=== PATIENT | male | born 1970 | race Caucasian/White ===

== ENCOUNTER 2024-05-30 12:41 | Observation (INO) | payer OTHER, SELFPAY ==
[2024-05-30] VITALS (8 sets, daily range): BP systolic 133–159; BP diastolic 85–104; PULSE 55–78; RESP 16–18; TEMP 36.7–37.7; O2SAT 96–98; BMI 26.1; BMI 27.6
--- NOTE | 2024-05-30 12:50 | EKG12_ITS ---
Test Reason : POSS STROKE Blood Pressure : */* mmHG Vent. Rate : 57 BPM Atrial Rate : 57 BPM P-R Int : 160 ms QRS Dur : 90 ms QT Int : 402 ms P-R-T Axes : 2 -33 6 degrees QTcB Int : 391 ms Sinus bradycardia Left axis deviation Abnormal ECG Confirmed by ROBBIE EGAN, MICHAEL ([id number]), editor trade journal KENISHA RAPHAEL ([id number]) on 06/01/2024 6:22:04 AM Referred By: Confirmed By: MICHAEL AVALOS MD
--- NOTE | 2024-05-30 12:50 | CT_ITS ---
STUDY: STROKE PROTOCOL CT BRAIN WITHOUT CONTRAST REASON FOR EXAM: Male, 53 years old. Neuro deficit, acute, stroke suspected RADIATION DOSAGE (If Supplied By Facility): CTDIvol = ( ) mGy, DLP = ( ) mGycm TECHNIQUE: Transaxial CT imaging of the brain was performed without administration of intravenous contrast material. Individualized dose optimization techniques were used for this CT. COMPARISON: Head CT dated December 22, 2016 FINDINGS: Major intracranial venous sinuses: No abnormal hyperdensity MCA and basilar arteries assessment: No abnormal hyperdensity No visualized extra-axial fluid collection or subdural hemorrhage. Normal soft tissue structures. Normal calvarium. Normal size ventricles and extra-axial spaces for the patient''s age. Normal white matter tracts of the cerebral hemispheres. Normal basal ganglia and thalami. Normal brainstem. Normal cerebellum. There is no demonstrated sulcal effacement or parenchymal edema. There is no intracranial hemorrhage. There are no findings of an acute ischemic infarction. Normal visualized paranasal sinuses. ASPECTS Score for Acute Strokes: 10 CT/STROKE Brain/Head without Cont IMPRESSION: 1. Normal unenhanced CT scan of the brain. 2. Concern for stroke/positive symptomatology should be further evaluated with CT brain perfusion/CTA or MRI of the brain for further assessment. N.B. : The above Results were Read Back by Blanco Cano MD to James Cha MD, and understanding confirmed on 05/30/2024 13:10:22 (ET). Electronically Signed: Blanco Cano MD at 13:11 EST ,
--- NOTE | 2024-05-30 12:51 | CT_ITS ---
STUDY: CTA HEAD AND NECK WITH CONTRAST REASON FOR EXAM: Male, 53 years old. Neuro deficit, acute, stroke suspected RADIATION DOSAGE (If Supplied By Facility): CTDIvol = ( 18.15 ) mGy, DLP = ( 732.61 ) mGycm TECHNIQUE: CT angiography was performed with a multi-detector CT scanner. Data acquisition was obtained from the skull base through the vertex following intravenous administration of IV 100mL Isovue-[id number]. MIP images were reconstructed from the axial data set. Post-processing of the angiographic images was performed, with multiplanar reformation and 3D reconstruction. Individualized dose optimization techniques were used for this CT. COMPARISON: Head CT dated May 30, 2024 FINDINGS: Normal bilateral petrous carotid arteries. There is calcified plaque formation of the right cavernous carotid artery, without a cross-sectional luminal stenosis. Normal left cavernous carotid artery with a normal supraclinoid bifurcation. Normal right A1 segments of the anterior cerebral artery. Normal left A1 segments of the anterior cerebral artery. Normal intact anterior communicating artery (ACOM). Normal bilateral A2 segments of the anterior cerebral arteries. Normal right M1 and M2 segments of the middle cerebral arteries, with a normal M1 bifurcation. Normal left M1 and M2 segments of the middle cerebral arteries, with a normal M1 bifurcation. Normal right posterior communicating artery (PCOM). There is non-visualization of the left posterior communicating artery (PCOM). Normal bilateral vertebral arteries. Normal basilar artery with a normal basilar bifurcation. The visualized bilateral superior cerebellar (SCA) arteries are normal. Normal bilateral P1, P2 and visualized P3 segments of the posterior cerebral arteries. There is no demonstrated aneurysm of the [place]. No demonstrated thrombus or occlusion or hemodynamically significant stenosis of the major intracranial arteries. Fully patent and normal enhancement of the major intracranial venous sinuses, with no evidence of venous sinus thrombosis or occlusion. NECK CTA: AORTIC ARCH: Normal visualized aortic arch. Normal origins of the brachiocephalic, left common carotid, and left subclavian arteries. RIGHT CAROTID ARTERIES: Normal right common carotid artery (CCA). Normal right common carotid bulb. Normal origin of the right internal carotid (ICA) artery without a hemodynamically significant stenosis. Normal visualized cervical portion of the right internal carotid artery. Normal origin of the right external carotid artery (ECA). LEFT CAROTID ARTERIES: Normal left common carotid artery (CCA). Normal left common carotid bulb. Normal origin of the left internal carotid (ICA) artery without a hemodynamically significant stenosis. There is atherosclerotic tortuous elongation of the cervical portion of the left internal carotid artery. Normal origin of the left external carotid artery (ECA). VERTEBRAL ARTERIES: Normal bilateral vertebral arteries. No demonstrated vertebral artery thrombus or occlusion or dissection. CT/STROKE CTA Head AND Neck W/Con IMPRESSION: No demonstrated large vessel occlusion (LVO) 1. Head CTA: There is no demonstrated aneurysm of the [place]. No demonstrated thrombus or occlusion or hemodynamically significant stenosis of the major intracranial arteries. Fully patent and normal enhancement of the major intracranial venous sinuses, with no evidence of venous sinus thrombosis or occlusion. 2. Neck CTA: There bilateral cervical carotid and vertebral arteries. 3. CT Brain Perfusion and/or MRI of the brain can be obtained for small infarcts and perforating vessel disease not detected by CT or CTA. N.B. : The above Results were Read Back by Blanco Cano MD to James Cha MD, and understanding confirmed on 05/30/2024 13:22:56 (ET). Electronically Signed: Blanco Cano MD at 13:24 EST ,
--- NOTE | 2024-05-30 12:53 | ED.VIS.STROK ---
HPI History of Present Illness Chief Complaint: General Illness Informant: patient and spouse/S.O. Onset/Context/Timing Onset: Today Quality and Location: Positive for Left Facial Droop, Left Face Parasthesia, Right Arm Weakness, Right Leg Weakness and Slurred Speech Current Severity: Moderate Maximum Severity: Moderate Worsened by: Nothing Relieved by: Nothing Associated Symptoms Associated Symptoms: Positive for Headache Narrative Narrative: Patient is a 53-year-old male. He replied 63 years of age when asked age. He was awakened sleep with headache. He had symptoms at that time. He has history of migraines. He has never had a ocular migraine or migraine with neurologic deficit. He arrived by ambulance. I was asked to see him by nursing staff because of concern for stroke. Prior similar symptoms: No Recent Illness/Hospitalization: Yes PFSH PFS Home Medications ?Medication ?Instructions ?Recorded ?Last Taken ?Type NK 05/30/24 Unknown History Allergy/AdvReac Type Severity Reaction Status Date / Time hydrocodone bitartrate (From Allergy Other Verified 03/14/17 12:40 Vicodin) Penicillins Allergy Anaphylaxis Verified 03/14/17 12:40 oxycodone AdvReac Other Verified 03/18/17 12:52 tramadol AdvReac Other Verified 03/18/17 12:52 Social History Smoking Status: Current every day smoker ROS ROS ED Constitutional Constitutional ED: Denies chills, fever(s) or subjective Eyes Eyes: Denies blurry vision or change in vision ENT ENT ED: Denies ear pain or rhinorrhea Cardiovascular Cardiovascular: Denies chest pain, palpitations or racing heartbeat Respiratory/Chest Respiratory/Chest: Denies cough, dyspnea or dyspnea on exertion Gastrointestinal Gastrointestinal: Denies abdominal pain, diarrhea or vomiting Musculoskeletal Musculoskeletal: Denies arthralgias, back pain, myalgias or neck pain Integumentary Denies rash Neurologic Neurologic: Reports headache(s), paresthesias and weakness EXAM Physical Exam Const Vital Signs: 05/30/24 12:43 05/30/24 12:50 05/30/24 12:53 Temperature 99.8 F H Temperature Source Oral Pulse Rate 72 78 Respiratory Rate 18 18 Respiratory Effort Blood Pressure 159/104 H 159/101 H Blood Pressure Mean 122 120 Pulse Ox 98 98 98 Oxygen Delivery Method Room Air Room Air Room Air 05/30/24 12:58 05/30/24 13:20 05/30/24 13:30 Temperature Temperature Source Pulse Rate 55 L 66 Respiratory Rate 18 17 Respiratory Effort Normal Blood Pressure 155/93 H 140/97 H Blood Pressure Mean 113 111 Pulse Ox 97 98 Oxygen Delivery Method Room Air Room Air Positive well nourished and well developed General Appearance ED: well developed and NAD HEENT Reports moist mucous membranes atraumatic Nose: other Other Details: Patient has poor dentition. Eyes PERRL and EOMs intact bilaterally Eyes Narrative: There is no visual field cut. General Eye ED: Negative for pale conjunctiva or scleral icterus Resp normal respiratory effort and clear to auscultation bilaterally Cardio no murmurs Rate: regular rate Heart Sounds: S1 normal GI normal to inspection, nondistended, normoactive bowel sounds, soft to palpation, non-tender and no masses Extremity normal to inspection Neuro oriented x3, No CN's II-XII intact bilaterally and No no sensory deficits noted [place] Coma Scale: document GCS findings Spontaneous Obeys Commands Oriented 15 Sensorium / Orientation: Negative for alert Speech: Negative for speech normal Sensory Exam: No sensory level loss detected Motor Exam: Negative for strength 5/5 throughout Skin no wounds Rashes: no rashes NIHSS NIHSS Initial: 1a Level of Consciousness: 1 1b LOC Questions (Score 2 if aphasic/stupor): 1 1c LOC Commands (Only score 1st attempt): 0 2 Best Gaze (If aphasic, use reflexive mvmts.): 0 3 Visual: 0 4 Facial Palsy: 1 5 Motor Arm Right (UN = amputation/fusion): 1 5 Motor Arm Left: 0 6 Motor Leg Right: 1 6 Motor Leg Left: 0 7 Limb ataxia (Only + if out of proportion): 1 (Right upper extremity) 8 Sensory (Aphasia/stupor=0 or 1, coma=2): 1 (Altered sensation left side of the face) 9 Best Language: 0 10 Dysarthria (mute, coma=2, intubated=UN): 1 11 Extinction and Inattention (only scored if +): 1 Total Score: 9 MDM MDM MDM Narrative Medical decision making narrative: Patient presents with strokelike symptoms. This may be atypical presentation for migraine headache, with him having a headache that awoke him from sleep with neurologic symptoms need to entertain possibility of subarachnoid hemorrhage versus intraparenchymal hemorrhage. CT T of the head as well as CTA of the head and neck was ordered. If there is a hemorrhage will not obtain CTA of the head and neck. Patient's had very frequent ER visits. He has been seen for migraine headache. Has also been seen for orthopedic extremity injuries. Lab Data Attestation: I reviewed the patient's lab results. Lab results narrative: Troponin is normal. Basic metabolic panel is unremarkable. Chloride is slightly elevated 110. Coags are normal. CBC normal. Labs: Laboratory Results - last 24 hr 05/30/24 12:56 WBC 9.4 RBC 4.98 Hgb 15.2 Hct 45.1 MCV 90.6 MCH 30.5 MCHC 33.7 RDW Std Deviation 45.1 H RDW Coeff of Jake 13.5 Plt Count 336 MPV 8.8 Immature Gran % (Auto) 0.500 Neut % (Auto) 55.9 Lymph % (Auto) 32.4 [place] % (Auto) 8.1 Eos % (Auto) 2.2 Baso % (Auto) 0.9 Absolute Neuts (auto) 5.3 Absolute Lymphs (auto) 3.05 Nucleated RBC % 0 PT 13.9 INR 1.0 APTT 30.4 Sodium 140 Potassium 4.7 Chloride 110 H Carbon Dioxide 28.0 Anion Gap 2 L BUN 14 Creatinine 0.85 Estim Creat Clear Calc 102.82 Est GFR (MDRD) Af Amer 121 Est GFR (MDRD) Non-Af 100 BUN/Creatinine Ratio 16.4 Glucose 99 Calcium 9.0 Troponin I High Sens 5 Radiography Chest X-Ray - ED: 1 View, Read by ED Physician, Normal, Heart, Lungs, Mediastinum and Bony Structures Diagnostic Testing: Clinical Impression(s) from Imaging Studies Brain CT 05/30/24 12:50 IMPRESSION: 1. Normal unenhanced CT scan of the brain. 2. Concern for stroke/positive symptomatology should be further evaluated with CT brain perfusion/CTA or MRI of the brain for further assessment. N.B. : The above Results were Read Back by Blanco Cano MD to James Cha MD, and understanding confirmed on 05/30/2024 13:10:22 (ET). Electronically Signed: Blanco Cano MD at 13:11 EST , ADDENDUM: 05/30/24 1318 IMPRESSION: 1. Normal unenhanced CT scan of the brain. 2. Concern for stroke/positive symptomatology should be further evaluated with CT brain perfusion/CTA or MRI of the brain for further assessment. N.B. : The above Results were Read Back by Blanco Cano MD to James Cha MD, and understanding confirmed on 05/30/2024 13:10:22 (ET). Electronically Signed: Blanco Cano MD at 13:11 EST Reading Location ID and State: [id number] [facility] , Service support , Head/Neck CTA 05/30/24 12:51 IMPRESSION: No demonstrated large vessel occlusion (LVO) 1. Head CTA: There is no demonstrated aneurysm of the [place]. No demonstrated thrombus or occlusion or hemodynamically significant stenosis of the major intracranial arteries. Fully patent and normal enhancement of the major intracranial venous sinuses, with no evidence of venous sinus thrombosis or occlusion. 2. Neck CTA: There bilateral cervical carotid and vertebral arteries. 3. CT Brain Perfusion and/or MRI of the brain can be obtained for small infarcts and perforating vessel disease not detected by CT or CTA. N.B. : The above Results were Read Back by Blanco Cano MD to James Cha MD, and understanding confirmed on 05/30/2024 13:22:56 (ET). Electronically Signed: Blanco Cano MD at 13:24 EST Reading Location ID and State: [id number] [facility] , Service support , ADDENDUM: 05/30/24 1330 IMPRESSION: No demonstrated large vessel occlusion (LVO) 1. Head CTA: There is no demonstrated aneurysm of the [place]. No demonstrated thrombus or occlusion or hemodynamically significant stenosis of the major intracranial arteries. Fully patent and normal enhancement of the major intracranial venous sinuses, with no evidence of venous sinus thrombosis or occlusion. 2. Neck CTA: There bilateral cervical carotid and vertebral arteries. 3. CT Brain Perfusion and/or MRI of the brain can be obtained for small infarcts and perforating vessel disease not detected by CT or CTA. N.B. : The above Results were Read Back by Blanco Cano MD to James Cha MD, and understanding confirmed on 05/30/2024 13:22:56 (ET). Electronically Signed: Blanco Cano MD at 13:24 EST , Unenhanced scan of the head reveals no evidence of hemorrhage i.e. intraparenchymal or subarachnoid hemorrhage. Awaiting formal read by radiologist. 1302 EKG Initial EKG: Attestation: I personally reviewed and interpreted this EKG as follows: Interpretation: Sinus Bradycardia (Rate is 57. [place] to the left. AR interval is 160 ms. QS duration 90 ms. QT duration 402 ms. There is no ischemic changes noted.) Management Discussion w/another healthcare provider: Hospitalist (Exterminator was asked to page hospitalist at [phone].), Order Entry Specialist (Spoke with Dr. Kauffman neurologist at [facility]. Agrees with calling stroke team. He reviewed the CTA of the head and neck and states there is no LVO. Would continue with stroke workup. If negative this may represent migraine headache.) and Radiologist (I was contacted by Dr. Cano the radiologist regarding the CT without contrast.) Discharge Plan Dx/Rx/DC Orders Clinical Impression: Stroke-like symptoms, Acute headache, Acute right-sided weakness, Facial droop, Dysarthria, Elevated blood-pressure reading without diagnosis of hypertension, History of migraine headaches Disposition Disposition: Acute Care Hospital [facility]
[2024-05-30 13:11] LABS: Absolute Lymphocyte Count 3.05 X10^3/uL (0.83-4.51); Absolute Neutrophil Count 5.3 X10^3/uL (2.0-7.7); Basophil# 0.08 X10^3/uL; Basophil% 0.9 % (0-1); Eosinophil# 0.21 X10^3/uL; Eosinophils% 2.2 % (0-5); Hematocrit 45.1 % (40-54); Hemoglobin 15.2 g/dL (13.0-16.5); Lymphocyte # 3.05 X10^3/ul (0.83-4.51); Lymphocyte % 32.4 % (19-41); Mean Corp Hgb Conc 33.7 g/dL (32-36); Mean Corpuscular Hgb 30.5 pg (27.0-32.0); Mean Corpuscular Volume 90.6 fL (80-94); Mean Platelet Vol. 8.8 fl (6.2-12.0); Monocyte# 0.76 X10^3/uL; Monocyte% 8.1 % (0-10); NRBC Flagged by Analyzer 0 % (0-5); Neutrophil # 5.25 X10^3/uL (2.7-7.7); Neutrophil % 55.9 % (47-70); Platelet Count 336 K/mm3 (150-450); RBC Distribution Width CV 13.5 % (11.6-14.6); RBC Distribution Width SD 45.1 fl (35.1-43.9); Red Blood Count 4.98 M/mm3 (4.6-6.2); White Blood Count 9.4 K/mm3 (4.4-11.0)
[2024-05-30 13:20] LABS: Prothrombin Time (Protime)PT. 13.9 SECONDS (11.7-14.9)
[2024-05-30 13:21] LABS: Partial Thromboplast Time 30.4 Seconds (24.1-36.2)
[2024-05-30 13:29] LABS: Anion Gap 2 (5-15); BUN 14 mg/dL (7-18); BUN/Creat Ratio 16.4 RATIO (10-20); Chloride 110 mmol/L (98-107); Creatinine, Serum 0.85 mg/dL (0.70-1.30); EST Glomerular Filtration Rate 100 mL/min (>60); Est Glom Filt Rate - Afr Amer 121 mL/min (>60); Estimated Creatinine Clearance 102.82 ml/min; Glucose 99 mg/dL (74-106); Potassium 4.7 mmol/L (3.5-5.1); Sodium Level 140 mmol/L (136-145); Troponin-I HS 5 pg/mL (3.0-78.0)
--- NOTE | 2024-05-30 13:30 | RAD_ITS ---
STUDY: X-RAY CHEST REASON FOR EXAM: Male, 53 years old. Neuro deficit, acute, stroke suspected -- Right-sided weakness, inattention right, slurred s TECHNIQUE: Two AP portable view of the chest. COMPARISON: None. FINDINGS: No demonstrated consolidation. The lungs are clear and expanded. There is no demonstrated pleural abnormality. Normal size heart. Normal mediastinum and liseth. Normal visualized pulmonary arteries. There is atherosclerotic calcification of the aortic arch with tortuosity. There are diffuse degenerative changes of the visualized thoracic spine. Normal visualized ribs, clavicles, and shoulders. There is no demonstrated abnormality of the visualized soft tissue structures of the upper abdomen. RAD/Chest 1 View IMPRESSION: Degenerative changes, as described above. No demonstrated acute cardiopulmonary process. Electronically Signed: Blanco Cano MD at 14:24 EST ,
--- NOTE | 2024-05-30 13:37 | PCM.HP.STD ---
HPI - General General Date of Admission: 05/30/24 Date of Service: 05/30/24 Chief Complaint: Strokelike symptoms HPI Narrative EDDA BERNAL, is a 53 M who presented to [facility] ED on 05/30/2024 with strokelike symptoms. Patient brought into hospital by EMS. Has history of migraines and woke up this morning with a significant headache, but noticed that he had a left facial droop and slurred speech. He also apparently had some mild right leg and right arm weakness as well. On arrival to the ED his NIHSS score was 9. He was outside the window for TNK. CT brain was negative. CTA head/neck was also negative. On reevaluation by ED physician patient remained somewhat confused and stated his age was 63 when he is 53 years old. notes that he also seemed slightly different than his normal, though she notes his facial droop and right-sided extremity weakness appeared improved. Given concern for stroke, hospitalist was contacted for admission. I saw the patient at bedside in the ED, was present. Patient was laying back comfortably in bed and in no acute distress. He was hemodynamically stable on room air. Patient was alert and oriented x 3 for me. However, he was very combative verbally with me and stated multiple times that he did not want to be hospitalized overnight and is strongly against taking any medications. He has a history of Crohn's disease and is on medical marijuana for this. He was very concerned about the cost of the hospital stay and testing for possible stroke and argumentative with me during our encounter. He was agreeable to being admitted with plan for MRI later this afternoon and plan to discuss further course of action after that resulted. He did seem to have occasional slurring of speech. Denied any other drug use aside from marijuana. Denied any alcohol use. Did report a mild right-sided headache currently. Otherwise denied any other concerns. [facility] Home Medications ?Medication ?Instructions ?Recorded ?Last Taken ?Type NK 05/30/24 Unknown History Allergy/AdvReac Type Severity Reaction Status Date / Time hydrocodone bitartrate (From Allergy Other Verified 03/14/17 12:40 Vicodin) Penicillins Allergy Anaphylaxis Verified 03/14/17 12:40 oxycodone AdvReac Other Verified 03/18/17 12:52 tramadol AdvReac Other Verified 03/18/17 12:52 Family History (Updated 05/30/24 @ 15:07 by Dyan Brown) Father CVA (cerebral vascular accident) Surgical History (Updated 05/30/24 @ 15:07 by Dyan Brown) History of appendectomy Social History Smoking Status: Current every day smoker tobacco type: cigarettes ROS Constitutional Constitutional: Denies chills, fatigue, fever(s) or weakness Eyes Eyes: Denies blurry vision, change in vision or double vision ENT HEENT: Denies nasal congestion or nasal discharge Cardiovascular Cardiovascular: Denies chest pain or dyspnea on exertion Respiratory/Chest Respiratory/Chest: Denies cough or shortness of breath at rest Gastrointestinal Gastrointestinal: Denies abdominal pain Musculoskeletal Musculoskeletal: Denies arthralgias, back pain or myalgias Neurologic Neurologic: Reports abnormal speech, confusion and headache(s); Denies dizziness, focal weakness, numbness or paresthesias Vital Signs Vital Signs Vital Signs: 05/30/24 12:43 05/30/24 12:50 05/30/24 12:53 Temperature 99.8 F H Temperature Source Oral Pulse Rate 72 78 Respiratory Rate 18 18 Respiratory Effort Blood Pressure 159/104 H 159/101 H Blood Pressure Mean 122 120 Pulse Ox 98 98 98 Oxygen Delivery Method Room Air Room Air Room Air 05/30/24 12:58 05/30/24 13:20 05/30/24 13:30 Temperature Temperature Source Pulse Rate 55 L 66 Respiratory Rate 18 17 Respiratory Effort Normal Blood Pressure 155/93 H 140/97 H Blood Pressure Mean 113 111 Pulse Ox 97 98 Oxygen Delivery Method Room Air Room Air Weight Weight: 80.2 kg Body Mass Index (BMI) 26.1 Physical Exam Const alert, oriented x3 and average body habitus Constitutional Narrative: Middle-age male, alert and oriented x 3 but occasional mild slurred speech noted, argumentative with me during encounter, otherwise laying back comfortably in bed and no acute distress. General Appearance: comfortable HEENT normocephalic, head/scalp atraumatic, hearing grossly normal bilaterally, nasal mucous membranes and turbinates normal and moist oral mucous membranes Eyes PERRL, EOMs intact bilaterally and conjunctivae normal Neck full ROM Chest inspection of chest normal Resp normal respiratory effort, normal air movement, no use of accessory muscles and clear to auscultation bilaterally Cardio regular rate, regular rhythm, no murmurs and peripheral pulses 2+ throughout GI normal to inspection, nondistended, normoactive bowel sounds, soft to palpation, non-tender and non-distended Back/Spine normal ROM Extremity normal to inspection, full ROM and no pedal edema Skin no rashes or lesions noted Neuro oriented x3, CN's II-XII intact bilaterally, moves all extremities and no focal motor deficits Sensorium / Orientation: awake and alert Coordination / Balance: [id number] test normal Motor Exam: strength 5/5 throughout Psych mental status grossly normal Results Lab / Micro Data 05/30/24 12:56 05/30/24 12:56 Labs: Laboratory Results - last 24 hr 05/30/24 12:56: WBC 9.4, RBC 4.98, Hgb 15.2, Hct 45.1, MCV 90.6, MCH 30.5, MCHC 33.7, RDW Std Deviation 45.1 H, RDW Coeff of Jake 13.5, Plt Count 336, MPV 8.8, Immature Gran % (Auto) 0.500, Neut % (Auto) 55.9, Lymph % (Auto) 32.4, [place] % (Auto) 8.1, Eos % (Auto) 2.2, Baso % (Auto) 0.9, Absolute Neuts (auto) 5.3, Absolute Lymphs (auto) 3.05, Nucleated RBC % 0, PT 13.9, INR 1.0, APTT 30.4, Sodium 140, Potassium 4.7, Chloride 110 H, Carbon Dioxide 28.0, Anion Gap 2 L, BUN 14, Creatinine 0.85, Estim Creat Clear Calc 102.82, Est GFR (MDRD) Af Amer 121, Est GFR (MDRD) Non-Af 100, BUN/Creatinine Ratio 16.4, Glucose 99, Calcium 9.0, Troponin I High Sens 5 Imaging Radiology Impression Brain CT 05/30/24 12:50 IMPRESSION: 1. Normal unenhanced CT scan of the brain. 2. Concern for stroke/positive symptomatology should be further evaluated with CT brain perfusion/CTA or MRI of the brain for further assessment. N.B. : The above Results were Read Back by Blanco Cano MD to James Cha MD, and understanding confirmed on 05/30/2024 13:10:22 (ET). Electronically Signed: Blanco Cano MD at 13:11 EST , ADDENDUM: 05/30/24 1318 IMPRESSION: 1. Normal unenhanced CT scan of the brain. 2. Concern for stroke/positive symptomatology should be further evaluated with CT brain perfusion/CTA or MRI of the brain for further assessment. N.B. : The above Results were Read Back by Blanco Cnao MD to James Cha MD, and understanding confirmed on 05/30/2024 13:10:22 (ET). Electronically Signed: Blanco Cano MD at 13:11 EST , Head/Neck CTA 05/30/24 12:51 IMPRESSION: No demonstrated large vessel occlusion (LVO) 1. Head CTA: There is no demonstrated aneurysm of the [place]. No demonstrated thrombus or occlusion or hemodynamically significant stenosis of the major intracranial arteries. Fully patent and normal enhancement of the major intracranial venous sinuses, with no evidence of venous sinus thrombosis or occlusion. 2. Neck CTA: There bilateral cervical carotid and vertebral arteries. 3. CT Brain Perfusion and/or MRI of the brain can be obtained for small infarcts and perforating vessel disease not detected by CT or CTA. N.B. : The above Results were Read Back by Blanco Cano MD to James Cha MD, and understanding confirmed on 05/30/2024 13:22:56 (ET). Electronically Signed: Blanco Cano MD at 13:24 EST , ADDENDUM: 05/30/24 1330 IMPRESSION: No demonstrated large vessel occlusion (LVO) 1. Head CTA: There is no demonstrated aneurysm of the [place]. No demonstrated thrombus or occlusion or hemodynamically significant stenosis of the major intracranial arteries. Fully patent and normal enhancement of the major intracranial venous sinuses, with no evidence of venous sinus thrombosis or occlusion. 2. Neck CTA: There bilateral cervical carotid and vertebral arteries. 3. CT Brain Perfusion and/or MRI of the brain can be obtained for small infarcts and perforating vessel disease not detected by CT or CTA. N.B. : The above Results were Read Back by Blanco Cano MD to James Cha MD, and understanding confirmed on 05/30/2024 13:22:56 (ET). Electronically Signed: Blanco Cano MD at 13:24 EST Reading Location ID and State: [facility] / [place] , Service support , Assessment & Plan Assessment/Plan (1) Dysarthria: (2) Facial droop: (3) Acute headache: (4) History of migraine headaches: (5) Elevated blood-pressure reading without diagnosis of hypertension: PLAN: Plan Patient is a 53-year-old male who presented [facility] ED on 05/30/2024 with strokelike symptoms. 1. Strokelike symptoms ? Admit under observation status to PCU. Teleneurology consulted. Presented with headache, slurred speech, and reported left-sided facial droop and right-sided weakness. Initial NIHSS score of 9. 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 CT brain and CTA head/neck unremarkable. MRI brain ordered. Echo with bubble study ordered. Lipid panel, A1c and TSH ordered. Other orders placed per stroke protocol order set. 2. Migraine headaches ? Patient reports occasional migraine headaches for many years. Migraines are typically bilateral and are associated with mild photophobia and nausea. No aura with headaches. Has never had strokelike symptoms with headaches before. Typically takes ibuprofen with moderate relief of migraine. Appreciate neurology recommendations. 3. Crohn's disease ? Reported history, unclear on timing of diagnosis. Diet controlled. Patient also takes medical marijuana for this. He notably has strong hesitation about taking scheduled medications. States symptoms have been well-controlled recently. DVT prophylaxis: SCDs CODE STATUS: Full code, verified Expected disposition: Home, 1 to 2 days Total clinical time spent by myself addressing the patient's medical issues, reviewing all the data, and collaborating with patient's care team: 55 minutes. Charges/Coding Visit Charges Inpatient E&M: 72252 Init Hosp L2
--- NOTE | 2024-05-30 13:43 | MRI_ITS ---
STUDY: MRI BRAIN WITHOUT CONTRAST REASON FOR EXAM: Male, 53 years old. eval for CVA TECHNIQUE: Standardized multiplanar fat and water weighted pulse sequences were obtained. COMPARISON: CT of the brain May 30, 2024. FINDINGS: Normal size of the ventricles and extra-axial spaces for the patient''s age. Normal white matter tracts of the supratentorial brain. Probable old lacunar infarct in right basal ganglia Normal thalami. There is no extra-axial fluid accumulation. Normal flow voids within the major intracranial circulation suggesting patency by spin echo criteria. Normal sella turcica, pituitary gland, infundibular stalk, optic chiasm and hypothalamus. Normal tectal plate and pineal gland. Normal midbrain, anne-marie and medulla. Normal cerebellum. Normal basal cisterns. Normal bilateral temporal bones. Normal bilateral internal auditory canals. No demonstrated orbital abnormality, within the constraints of a routine brain study. Normal visualized paranasal sinuses. Normal calvarium and skull base. Normal visualized soft tissue structures. Normal visualized upper cervical spine. MRI/Brain without Contrast IMPRESSION: Probable old lacunar infarct of the right basal ganglia otherwise normal study Electronically Signed: Adryan Izaguirre MD at 16:12 EST ,
--- NOTE | 2024-05-30 13:44 | CHAPLAIN ---
Type of Pastoral Visit ___ Initial Visit ___ Follow-up Visit ___ On-call Visit ___ General Patient Visit ___ Spiritual Assessment ___ Family Conference ___ Bereavement _x__ Rapid Response ___ Code Blue ___ Other (describe below) Pastoral Care Referral From ___ Patient ___ Family ___ Nurse ___ Physician ___ Flower Planter ___ Regional Economic Liaison _x__ Other (describe below) Sacrament/Intervention ___ Active listening ___ Anointing ___ Baptist ___ Bereavement ___ Communion ___ Aida exploration ___ ___ Life review ___ Prayer ___ Reconciliation ___ Sacrament of Sick _x__ Supportive presence ___ Wedding ___ Other (describe below) Pastoral Comments responded to stroke alert in ED; the patient was in Cat[employer] and was in the patient's room; offered presence and support to spouse; got her a water and asked how she was doing, what she needed, and if there were other family members to call; stayed in the unit for a few more minutes to see how the situation would develop after letting spouse know that support would be available as they desired; no other family members were to be coming in to hospital yet per her response to question
[2024-05-30] MEDS: DiphenhydrAMINE 50 MG/ML Syringe 12.5 MG IV (13:55)
[2024-05-30] MEDS: Metoclopramide 10 MG/2 ML Vial 5 MG IV (13:55)
[2024-05-30 14:20] LABS: Bacteria 0 SEEN /hpf (None Seen); Mucous, Urine 0 SEEN /hpf (<or=2+); Red Blood Cells-Urine 0 SEEN /hpf (0-5); Squamous Epithelial Cells - UA 0 SEEN /hpf (0-5); White Blood Cells 0 SEEN /hpf (0-5)
[2024-05-30 14:21] LABS: Color, Urine Yellow (Yellow); Glucose, Dipstick Normal (Normal); Ketone-Dipstick Negative (Negative); Leukocyte Esterase-Dipstick Negative /ul (Negative); Nitrite-Dipstick Negative (Negative); Occult Blood-Urine 10 /ul (Negative); Protein-Dipstick 15 mg/dl (Negative); Urine Bilirubin Dipstick Negative (Negative); Urine Clarity Clear (Clear); Urine Urobilinogen Normal (Normal)
[2024-05-30 14:30] LABS: Amphetamine Urine NEGATIVE (<1000 ng/mL); Barbiturate Urine VISTA NEGATIVE (< 200 ng/mL); Benzodiazepine Urine VISTA NEGATIVE (< 200 ng/mL); Cocaine Urine VISTA NEGATIVE (< 300 ng/mL); Ecstacy Urine VISTA NEGATIVE (< 500 ng/mL); Methadone Urine VISTA NEGATIVE (< 300 ng/mL); PCP Urine VISTA NEGATIVE (< 25 ng/mL); THC Urine VISTA POSITIVE (< 50 ng/mL); Vista UDS pH Range 7
[2024-05-30 14:38] LABS: Alcohol, Blood (Medical)-Serum < 3.0 mg/dL
[2024-05-30 14:53] LABS: AST(SGOT) 16 U/L (15-37); Alanine Aminotransfer ALT/SGPT 19 U/L (16-61); Albumin, Serum 3.6 g/dL (3.2-5.0); Alkaline Phosphatase 69 U/L (45-117); Bilirubin, Direct < 0.05 mg/dL (0.00-0.30); Globulin 3.5 g/dL (2.2-4.2); Protein, Total 7.1 g/dL (6.4-8.2)
[2024-05-30 17:16] LABS: Cholesterol 133 mg/dL (200); High Density Lipoprotein 31 mg/dL; Triglycerides 148 mg/dL; Very Low Density Lipoprotein 30 mg/dL (5-40)
--- NOTE | 2024-05-30 18:07 | DCINST_ITS ---
Discharge Instructions Diet Discharge Diet: No restrictions DC O2, CPAP, BIPAP needs Home O2 Discharge instructions: No Dressing / Incision Discharge Activity: No Restrictions Follow Up Care Test Results: Test results from this visit will be discussed in further detail at your follow- up appointment, if applicable. Discharge Plan Admission Admit Date/Time: 05/30/24 13:38 Primary Reason for Your Visit: Strokelike symptoms Attending Provider: Jerome Blanco Primary Care Provider: Yamilex Weeks Consulting Providers: Wang Caldera; Kenny Carmen; Gissell Shook; Juliet Estrada; Pat Lopez; Jaun Desai; Sharon Vazquez; Justice Acosta; Jose Luis Wells; Jermain Cash; Nadeen Tirado; Byron Walker; Kerline Quinones; Jerry Lee; Araceli Davis; Cesar Reveles; Rito Parker; Gaetano Gibbons; Hellen Oakes; Linda Andrade Discharge Orders/Prescriptions Prescriptions: No Action NK Referrals / Follow Up: Yamilex Weeks MD [Primary Care Provider] - Disposition Disposition (needs filled in before D/C Order can be placed): Home, Self Care
--- NOTE | 2024-05-30 18:08 | DS.PCM_ITS ---
Providers Date of Admission: 05/30/24 Date of Discharge: 05/30/24 Primary Care Physician: Dr. Yamilex Weeks MD Consultations 05/30/24 14:50 Consult: Tele-Neurology Routine Consulting Provider: [facility] Reason for Consult: Acute Ischemic Stroke/TIA EMERGENT Consult: No MD Notified: Yes Date Notified: 05/30/24 Time Notified: 15:33 Method of Notification: Answering Service Nursing Unit Staff Notify [facility] of Tele-Neurology Consult: Yes Reason For Visit: STROKELIKE SYMPTOMS Medications at Discharge Home Medications NK 05/30/24 Hospital Course Operations None Procedures EKG and - (CT brain, CTA head/neck, MRI brain, chest x-ray) Summary of Care Provided Minutes Spent on Discharge: 35 Hospital Course: Patient is a 53-year-old male who presented [facility] ED on 05/30/2024 with strokelike symptoms. Short hospital course was notable low. Patient discharged home on the evening of 05/30 in stable condition. 1. Strokelike symptoms, CVA ruled out ? Presented with headache, slurred speech, and reported left-sided facial droop and right-sided weakness. Initial NIHSS score of 9. 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 CT brain and CTA head/neck unremarkable. 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 Lipid panel with low HDL 31, otherwise normal. A1c 6.0%. TSH normal. Patient passed a swallow study without issue. He was walking around the room after MRI without issue and had no weakness of his upper or lower extremities. Patient strongly dislikes being in the hospital and preferred for discharge on the evening of 05/30. noted that patient looked significantly improved from the morning. Symptoms may have been related to migraine but this is unclear. However, with negative MRI, fairly normal labs and stable hemodynamics with significant symptom improvement, okay for patient to be discharged home on the evening of admission. 2. Migraine headaches ? Patient reports occasional migraine headaches for many years. Migraines are typically bilateral and are associated with mild photophobia and nausea. No aura with headaches. Has never had strokelike symptoms with headaches before. Typically takes ibuprofen with moderate relief of migraine. Follow-up with PCP for further recommendations as needed. 3. Crohn's disease ? Reported history, unclear on timing of diagnosis. Diet controlled. Patient also takes medical marijuana for this. He notably has strong hesitation about taking scheduled medications. States symptoms have been well-controlled recently. No further recommendations on discharge. Total clinical time spent by myself addressing the patient's medical issues, reviewing all the data, and collaborating with patient's care team: 35 minutes. Physical Exam Const alert, oriented x3 and average body habitus Constitutional Narrative: Middle-age male, alert and oriented x 3, slurred speech resolved, remained argumentative but otherwise sitting up comfortably in bed and in no acute distress. General Appearance: comfortable HEENT normocephalic, head/scalp atraumatic, hearing grossly normal bilaterally, nasal mucous membranes and turbinates normal and moist oral mucous membranes Eyes PERRL, EOMs intact bilaterally and conjunctivae normal Neck full ROM Chest inspection of chest normal Resp normal respiratory effort, normal air movement, no use of accessory muscles and clear to auscultation bilaterally Cardio regular rate, regular rhythm, no murmurs and peripheral pulses 2+ throughout GI normal to inspection, nondistended, normoactive bowel sounds, soft to palpation, non-tender and non-distended Back/Spine normal ROM Extremity normal to inspection, full ROM and no pedal edema Skin no rashes or lesions noted Neuro oriented x3, CN's II-XII intact bilaterally, moves all extremities and no focal motor deficits Sensorium / Orientation: awake and alert Coordination / Balance: [id number] test normal Speech: speech normal Motor Exam: strength 5/5 throughout Psych mental status grossly normal Weight / BMI Weight Weight: 80.1 kg Body Mass Index (BMI) 27.6 ABG / Lab / Microbiology Data 05/30/24 12:56 05/30/24 12:56 Laboratory: Laboratory Results - last 24 hr 05/30/24 12:56: WBC 9.4, RBC 4.98, Hgb 15.2, Hct 45.1, MCV 90.6, MCH 30.5, MCHC 33.7, RDW Std Deviation 45.1 H, RDW Coeff of Jake 13.5, Plt Count 336, MPV 8.8, Immature Gran % (Auto) 0.500, Neut % (Auto) 55.9, Lymph % (Auto) 32.4, [place] % (Auto) 8.1, Eos % (Auto) 2.2, Baso % (Auto) 0.9, Absolute Neuts (auto) 5.3, Absolute Lymphs (auto) 3.05, Nucleated RBC % 0, PT 13.9, INR 1.0, APTT 30.4, Sodium 140, Potassium 4.7, Chloride 110 H, Carbon Dioxide 28.0, Anion Gap 2 L, BUN 14, Creatinine 0.85, Estim Creat Clear Calc 102.82, Est GFR (MDRD) Af Amer 121, Est GFR (MDRD) Non-Af 100, BUN/Creatinine Ratio 16.4, Glucose 99, H emoglobin A1c 6.0 H, Calcium 9.0, Total Bilirubin 0.20, Direct Bilirubin < 0.05, AST 16, ALT 19, Alkaline Phosphatase 69, Troponin I High Sens 5, Total Protein 7.1, Albumin 3.6, Globulin 3.5, Triglycerides 148, Cholesterol 133, LDL Cholesterol 72, VLDL Cholesterol 30, HDL Cholesterol 31 L, TSH 1.120 05/30/24 13:57: Urine Opiates Screen NEGATIVE, Urine Methadone Screen NEGATIVE, Ur Barbiturates Screen NEGATIVE, Ur Phencyclidine Scrn NEGATIVE, Ur Amphetamines Screen NEGATIVE, MDMA (Ecstasy) Screen NEGATIVE, U Benzodiazepines Scrn NEGATIVE, Urine Cocaine Screen NEGATIVE, U Cannabinoids Screen POSITIVE H, Ur Drug Screen Comment , Ethyl Alcohol < 3.0 05/30/24 13:59: Urine Color Yellow, Urine Clarity Clear, Urine pH 8.0, Ur Specific [place] 1.010, Urine Protein 15 H, Urine Glucose (UA) Normal, Urine Ketones Negative, Urine Occult Blood 10 H, Urine Nitrite Negative, Urine Bilirubin Negative, Urine Urobilinogen Normal, Ur Leukocyte Esterase Negative, Urine RBC 0 SEEN, Urine WBC 0 SEEN, Ur Squamous Epith Cells 0 SEEN, Urine Bacteria 0 SEEN, Urine Mucus 0 SEEN Radiography Diagnostic Testing: Radiology Impression Brain CT 05/30/24 12:50 IMPRESSION: 1. Normal unenhanced CT scan of the brain. 2. Concern for stroke/positive symptomatology should be further evaluated with CT brain perfusion/CTA or MRI of the brain for further assessment. N.B. : The above Results were Read Back by Blanco Cano MD to James Cha MD, and understanding confirmed on 05/30/2024 13:10:22 (ET). Electronically Signed: Blanco Cano MD at 13:11 EST , ADDENDUM: 05/30/24 1318 IMPRESSION: 1. Normal unenhanced CT scan of the brain. 2. Concern for stroke/positive symptomatology should be further evaluated with CT brain perfusion/CTA or MRI of the brain for further assessment. N.B. : The above Results were Read Back by Blanco Cano MD to James Cha MD, and understanding confirmed on 05/30/2024 13:10:22 (ET). Electronically Signed: Blanco Cano MD at 13:11 EST , Head/Neck CTA 05/30/24 12:51 IMPRESSION: No demonstrated large vessel occlusion (LVO) 1. Head CTA: There is no demonstrated aneurysm of the [place]. No demonstrated thrombus or occlusion or hemodynamically significant stenosis of the major intracranial arteries. Fully patent and normal enhancement of the major intracranial venous sinuses, with no evidence of venous sinus thrombosis or occlusion. 2. Neck CTA: There bilateral cervical carotid and vertebral arteries. 3. CT Brain Perfusion and/or MRI of the brain can be obtained for small infarcts and perforating vessel disease not detected by CT or CTA. N.B. : The above Results were Read Back by Blanco Cano MD to James Cha MD, and understanding confirmed on 05/30/2024 13:22:56 (ET). Electronically Signed: Blanco Cano MD at 13:24 EST , ADDENDUM: 05/30/24 1330 IMPRESSION: No demonstrated large vessel occlusion (LVO) 1. Head CTA: There is no demonstrated aneurysm of the [place]. No demonstrated thrombus or occlusion or hemodynamically significant stenosis of the major intracranial arteries. Fully patent and normal enhancement of the major intracranial venous sinuses, with no evidence of venous sinus thrombosis or occlusion. 2. Neck CTA: There bilateral cervical carotid and vertebral arteries. 3. CT Brain Perfusion and/or MRI of the brain can be obtained for small infarcts and perforating vessel disease not detected by CT or CTA. N.B. : The above Results were Read Back by Blanco Cano MD to James Cha MD, and understanding confirmed on 05/30/2024 13:22:56 (ET). Electronically Signed: Blanco Cano MD at 13:24 EST , Chest X-Ray 05/30/24 13:30 IMPRESSION: Degenerative changes, as described above. No demonstrated acute cardiopulmonary process. Electronically Signed: Blanco Cano MD at 14:24 EST Reading Location ID and State: [facility] / [place] , Service support , Brain MRI 05/30/24 13:43 IMPRESSION: Probable old lacunar infarct of the right basal ganglia otherwise normal study Electronically Signed: Adryan Izaguirre MD at 16:12 EST , D/C Instructions Discharge Diet: No restrictions DC O2, CPAP, BIPAP Needs Home O2 Discharge instructions: No Meaningful Use Info Meaningful Use Meaningful Use Diagnoses (Choose all that apply): None applicable Ischemic Stroke Statin Dosing Therapy Reference: STATIN DOSE THERAPY REFERENCE: * Patients > 75 years receive moderate or high dose statin therapy. * Patients 75 years or YOUNGER should receive HIGH intensity statin dose unless contraindicated. You will be required to document reason for non-treatment if statin daily dose does not meet guidelines. HIGH DOSE STATIN THERAPY DAILY Atorvastatin > than or = to 40 mg Rosuvastatin > than or = to 20 mg Amlodipine + Atorvastatin > than or = to 2.5/40 mg Ezetimibe + Simvastatin 10/80 mg Simvastatin 80mg Discharge Plan Admission Admit Date/Time: 05/30/24 13:38 Primary Reason for Your Visit: Strokelike symptoms Attending Provider: Jerome Blanco Primary Care Provider: Yamilex Weeks Consulting Providers: Wang Caldera; Kenny Carmen; Gissell Shook; Juliet Estrada; Pat Lopez; Jaun Desai; Sharon Vazquez; Justice Acosta; Jose Luis Wells; Jermain Cash; Nadeen Tirado; Byron Walker; Kerline Quinones; Jerry Lee; Araceli Davis; Cesar Reveles; Rito Parker; Gaetano Gibbons; Hellen Oakes; Linda Andrade Discharge Orders/Prescriptions Prescriptions: No Action NK Referrals / Follow Up: Yamilex Weeks MD [Primary Care Provider] - Disposition Disposition (needs filled in before D/C Order can be placed): Home, Self Care Charges/Coding Visit Charges Inpatient E&M: 14553 Disch Hosp >30min
== END 2024-05-30 18:08 | disposition home or self-care (01) ==
LOC: ED 13:35 → PCU 14:11
PROVIDERS: Admitting Provider Hospitalist; Emergency Provider Emergency Medicine; PCP Internal Medicine; Visit Provider Hospitalist
DX: R29.898 Other symptoms and signs involving the musculoskeletal system (principal); K50.90 Crohn's disease, unspecified, without complications; R03.0 Elevated blood-pressure reading, without diagnosis of hypertension; G43.909 Migraine, unspecified, not intractable, without status migrainosus; R47.81 Slurred speech; R47.1 Dysarthria and anarthria; R29.810 Facial weakness; F17.210 Nicotine dependence, cigarettes, uncomplicated; R94.31 Abnormal electrocardiogram [ECG] [EKG]; R00.1 Bradycardia, unspecified
CPT/HCPCS: 70450; 70496; 70498; 70551; 71045; 80048; 80061; 80076; 80307; 81001; 82077; 83036; 84443; 84484; 85025; 85610; 85730; 93005; 96374; 96375; 99221; 99285; Q9957; Q9967; A4216; G0378

== ENCOUNTER → 2024-09-23 | Outpatient (CLI) | payer OTHER, SELFPAY ==
--- NOTE | 2024-09-23 18:37 | CT_ITS ---
PROCEDURE: ABDOMEN/PELVIS WITH CONTRAST 09/23/2024 REASON FOR EXAM: PAIN TECHNIQUE: Abdomen and pelvis CT with oral and intravenous contrast. Coronal and Sagittal reconstruction series were provided. PATIENT PREPARATION: Per protocol CONTRAST: 97 mL Isovue 370 One or more dose reduction techniques were used (e.g., Automated exposure control, adjustment of the mA and/or kV according to patient size, use of iterative reconstruction technique. RADIATION DOSE SUMMARY: CTDlvol: 13.5 mGy DLP: 725 mGycm COMPARISON: None FINDINGS: Lung bases: Calcified granuloma in the lingula. Otherwise unremarkable. Liver: Subcentimeter hypodensity in the right hepatic lobe is too small to characterize. There is heterogeneous appearance of the posterior right hepatic lobe. There is streaky hypodensity present within the main and right portal veins. Gallbladder: Unremarkable Spleen: Normal size. Pancreas: Normal size without evidence of mass surrounding inflammation or ductal dilation. Adrenals: Unremarkable Kidneys: No hydronephrosis or stone. Bladder: Circumferential bladder wall thickening. Reproductive Organs: Prostatomegaly. Bowel: There is wall thickening and inflammatory stranding surrounding the sigmoid colon in the region of diverticulosis. There is an ovoid hypodensity with a punctate focus of hyperdensity internally at the mesenteric aspect of the prox sigmoid colon wall measuring 1.6 x 1.2 cm (series 2, image 80). No air is present within this hypodensity. No obstruction. Appendix: The appendix is not identified. There is no inflammatory process identified in the right lower quadrant to suggest appendicitis. Lymph nodes: Subcentimeter retroperitoneal nodes are likely reactive. Vasculature: Mild diffuse atherosclerotic calcifications are noted. There are 2 right renal arteries. Bones: Unremarkable CT/Abdomen/Pelvis WITH Contrast IMPRESSION: 1. Inflammatory changes in the region of diverticulosis in the sigmoid colon, most suggestive of acute diverticulitis. There is an ovoid hypodensity measuring 1.6 cm adjacent to the involved colon which may represent a developing abscess or inflamed diverticulum. 2. Heterogeneous enhancement of the posterior right hepatic lobe, nonspecific and which may represent transient hepatic attenuation differences. However, given additional finding of streaky hypodens ity within the portal veins, consider Doppler ultrasound to exclude portal vein thrombosis. 3. Circumferential bladder wall thickening, which may be reactive or the resul t of cystitis. Correlate with urinalysis. Reading Location: [facility]
== END | disposition home or self-care (01) ==
PROVIDERS: PCP Internal Medicine; Referring Provider Physician Assistant; Visit Provider Physician Assistant
DX: R10.32 Left lower quadrant pain (principal); K40.90 Unilateral inguinal hernia, without obstruction or gangrene, not specified as recurrent
CPT/HCPCS: 74177; Q9967; A4216

== ENCOUNTER → 2024-09-29 | Outpatient (CLI) | payer OTHER, SELFPAY ==
--- NOTE | 2024-09-29 09:37 | US_ITS ---
PROCEDURE: LIVER 09/29/2024 REASON FOR EXAM: POSSIBLE EMBOLI Possible thrombosis of the portal vein. COMPARISON: Prior CT scan of the abdomen and pelvis dated September 23, 2024. FINDINGS: Liver: Diffusely echogenic suggesting fatty infiltration. Findings suggestive of partial thrombosis of the portal vein. The portal flow is hepato pedal. Gallbladder: Sludge is seen within the gallbladder lumen. I suspect a 2 mm x 3 mm by 2 mm polyp adjacent to the gallbladder wall. Common bile duct: Normal measuring 3 mm.. Pancreas: Visualized portions are sonographically unremarkable. Other: Right kidney is unremarkable. No evidence of splenomegaly. The spleen measures 8.4 cm 4.3 cm x 3.1 cm. 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 The portal flow is hepatopetal. Sludge in the gallbladder lumen as well as a 2 mm x 3 mm x 2 mm polyp adjacent to the gallbladder wall. Reading Location: [id number]
== END | disposition home or self-care (01) ==
LOC: US 09:35
PROVIDERS: PCP Internal Medicine; Referring Provider Physician Assistant; Visit Provider Physician Assistant
DX: I81 Portal vein thrombosis (principal)
CPT/HCPCS: 76705

== ENCOUNTER → 2024-10-17 | Outpatient (CLI) | payer OTHER, SELFPAY ==
[2024-10-17 12:51] LABS: Absolute Lymphocyte Count 2.82 X10^3/uL (0.83-4.51); Absolute Neutrophil Count 7.2 X10^3/uL (2.0-7.7); Basophil# 0.11 X10^3/uL; Basophil% 0.9 % (0-1); Eosinophil# 0.44 X10^3/uL; Eosinophils% 3.8 % (0-5); Hematocrit 45.4 % (40-54); Hemoglobin 15.4 g/dL (13.0-16.5); Lymphocyte # 2.82 X10^3/ul (0.83-4.51); Lymphocyte % 24.2 % (19-41); Mean Corp Hgb Conc 33.9 g/dL (32-36); Mean Corpuscular Hgb 30.8 pg (27.0-32.0); Mean Corpuscular Volume 90.8 fL (80-94); Mean Platelet Vol. 9.6 fl (6.2-12.0); Monocyte# 0.99 X10^3/uL; Monocyte% 8.5 % (0-10); NRBC Flagged by Analyzer 0 % (0-5); Neutrophil # 7.24 X10^3/uL (2.7-7.7); Neutrophil % 62.3 % (47-70); Platelet Count 320 K/mm3 (150-450); RBC Distribution Width CV 13.9 % (11.6-14.6); RBC Distribution Width SD 46.3 fl (35.1-43.9); White Blood Count 11.6 K/mm3 (4.4-11.0)
[2024-10-17 13:15] LABS: International Normalized Ratio 1.1
--- NOTE | 2024-10-17 13:58 | CT_ITS ---
PROCEDURE: ABDOMEN/PELVIS WITH CONTRAST 10/17/2024 REASON FOR EXAM: LLQ PAIN/LEFT INGUINAL, DIVERTICULITIS ON 09/23 CT TECHNIQUE: ABDOMEN/PELVIS WITH CONTRAST. Coronal and Sagittal reconstruction series were provided. ORAL CONTRAST TYPE: Gastrografin. CONTRAST: Isovue 300 VOLUME: 100 mL One or more dose reduction techniques were used (e.g., Automated exposure control, adjustment of the mA and/or kV according to patient size, use of iterative reconstruction technique. RADIATION DOSE SUMMARY: CTDlvol: 12 mGy DLP: 740.39 mGycm COMPARISON: Prior study dated September 23, 2024. FINDINGS: Lung bases: Unremarkable Liver: Diffuse fatty infiltration. Subcentimeter cyst seen in the anterior medial aspect of the right lobe of the liver. Gallbladder: Unremarkable. Spleen: Normal size. Pancreas: Normal size without evidence of mass surrounding inflammation or ductal dilation. Adrenals: Unremarkable Kidneys: Unremarkable Bladder: Mild degree of diffuse bladder wall thickening. Reproductive Organs: Normal uterine size and contour. Ovaries are unremarkable. Bowel: Sigmoid diverticulosis. Mild degree of increased inflammatory changes are seen in the surrounding peritoneal fat suggestive of sigmoid diverticulitis. No obvious abscess or collection of fluid is seen at this time. Appendix: Unremarkable Lymph nodes: Unremarkable. Vasculature: Mild diffuse atherosclerotic calcifications are noted. Peritoneum / Retroperitoneum: Unremarkable Bones: Unremarkable CT/Abdomen/Pelvis WITH Contrast IMPRESSION: Findings suggestive of non complicated acute sigmoid diverticulitis. Stable subcentimeter hypodensity in the midportion of the right lobe of the chanell er suggestive of a small cyst. Reading Location: [place] [id number]
[2024-10-18 15:54] LABS: ALB/GLOB Ratio 1.6 RATIO (0.9-2.4); AST(SGOT) 24 U/L (<=37); Alanine Aminotransfer ALT/SGPT 16 U/L (<=46); Albumin, Serum 4.2 g/dL (3.5-5.0); Alkaline Phosphatase 67 U/L (40-129); Anion Gap 10 (5-15); BUN 10 mg/dL (4-19); BUN/Creat Ratio 12.8 RATIO (10-20); Calcium,Total 9.2 mg/dL (7.6-11.0); Chloride 105 mmol/L (98-108); Creatinine, Serum 0.76 mg/dL (0.70-1.20); EST Glomerular Filtration Rate 109 (>60); Globulin 2.7 g/dL (2.2-4.2); Glucose 89 mg/dL (70-99); Protein, Total 6.8 g/dL (5.9-8.4); Sodium Level 139 mmol/L (133-145); Total Bilirubin < 0.15 mg/dL (0.00-1.30)
== END | disposition home or self-care (01) ==
LOC: CT 11:00
PROVIDERS: Physician Assistant; PCP Internal Medicine; Referring Provider Nurse Practitioner Acute Care; Visit Provider Nurse Practitioner Acute Care
DX: I81 Portal vein thrombosis (principal); R10.32 Left lower quadrant pain
CPT/HCPCS: 36415; 74177; 80053; 85025; 85610; Q9967; A4216

== ENCOUNTER → 2024-10-19 | Outpatient (CLI) | payer OTHER, SELFPAY ==
--- NOTE | 2024-10-19 09:57 | VDLE_ITS ---
Reason For Study Reason For Study: PAIN/swelling (LT GROIN AREA) RIGHT LEFT CFV is compressible, spontaneous, phasic, competent GSV is normal. and demonstrates normal augmentation. DEIV is normal. Procedure CFV is compressible, spontaneous, phasic, competent, This is a venous duplex using B-mode, color flow and and demonstrates normal augmentation. spectral Doppler. FV is compressible, spontaneous, phasic, competent Exam performed in department. and demonstrates normal augmentation. 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 and demonstrates normal augmentation. T/P Trunk is compressible. PTV is compressible. LT PerV is compressible. VL/Venous Duplex US, Unilateral Interpretation Summary Deep veins of the left lower extremity are patent and compressible segmentally. There is no evidence of left lower extremity deep vein thrombosis. Valvular competence appears intact within the p roximal deep venous system on the left . The left great saphenous vein appears patent and compressible segmentally. The right common femoral vein is patent and compressible . Ordering Physician: Estefani Mohan Referring Physician: Courtney Cotter Performed By: Shayna George, JACY, RVT
--- OUTSIDE RECORDS SUMMARY | 2024-10-19 20:03 | XMS RPT_ITS | CCD ---
Author Organization [facility] Care Team Providers Care Wheel Borer Name Role Phone MACKENZIE COLUNGA Unavailable Unavailable CHRISTIANE BARBA Unavailable Unavailable MACKENZIE COLUNGA Unavailable Unavailable Unavailable Primary Care Provider Unavailtiffanie COLUNGA MD, DR MANN Primary Care Physician PHYSICIAN, NONE Primary Care Physician Unavailab jewels BARON DO, DR JAJA Porter Attending Unavailable LORAINE HAGAN, DR JAJA Porter Referring Unavailable PHYSICIAN, NONE Primary Care Unavailable Desi EGAN, Dr. Mackenzie Sparks Primary Care Provider [phone] Dr. Mackenzie Colunga MD Referring Provider Byron Brady Attending Provider Dr. Courtney Cotter MD Primary Care Provider Dr. Courtney Cotter MD Attending Provider Dr. Courtney Cotter MD Referring Provider Byron Brady Referring Provider [phone] Bryan EGAN, Dr. Reyez Attending Provider Marques 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-CEstefani Attending Provider Courtney Cotter Primary Care Unavailable Byron Brady Attending Unavailable Byron Brady Referring Unavailable Wang Caldera Consulting Unavailable Jerome Blanco Attending Unavailable Jerome Blanco Admitting Unavailable Mackenzie Colunga Primary Care Unavailable Adekasey, Kenny Consulting Unavailable Hindutessa, Gissell Consulting Unavailable Juliet Estrada Consulting Unavailable Pat Lopez Consulting Unavailable Jaun Desai Consulting Unavailable Sharon Vazquez Consulting Unavailable Justice Acosta Consulting Unavailable Jose Luis Wells Consulting Unavailable Jermain Cash Consulting Unavailable Nadeen Tirado Consulting Unavailable Byron Walker Consulting Unavailable Joni, Kerline Consulting Unavailable Ridha, Mohamed Consulting Unavailable Zaghlouleh, Mhd Mark Anthony Consulting UnavailCesar Blake Consulting Unavailable Parker, Rami Consulting Unavailable Gaetano Gibbons Consulting Unavailable Hellen Oakes Consulting Unavailable Raymond, Deepsef Consulting Unavailable Jerome Blanco Consulting Unavailable Talampas, Mackenzie D Referring Unavailable Talampas, Mackenzie D Primary Care Unavailable Byron Brady Attending Unavailable Talampas, Mackenzie D Referring Unavailable Talampas, Mackenzie D Primary Care Unavailable Byron Brady Attending Unavailable Vahe, Courtney Attending Unavailable Vahe, Courtney Primary Care Unavailable Talampas, Mackenzie D Referring Unavailable Vahe, Courtney Referring Unavailable Vahe, Courtney Primary Care Unavailable Byron Brady Attending Unavailable Wang Caldera Consulting Unavailable Jerome Blanco Attending Unavailable Jerome Blanco Admitting Unavailable Talampas, Mackenzie D Primary Care Unavailable Adeli, Amir Consulting Unavailable Hinduja, Gissell Consulting Unavailable Sean, Juliet Consulting Unavailable Zha, Pat Consulting Unavailable Lloyd, Jaun Consulting Unavailable Taylor, Sharon Consulting Unavailable Bitraul, Justice Consulting Unavailable Jose Luis Wells Consulting Unavailable Jermain Cash Consulting Unavailable Nadeen Tirado Consulting Unavailable Byron Walker Consulting Unavailable Joni, Kerline Consulting Unavailable Ridha, Mohamed Consulting Unavailable Zakrish, Mhd Mark Anthony Consulting UnavailCesar Blake Consulting Unavailable Parker, Rami Consulting Unavailable Gaetano Gibbons Consulting Unavailable Hellen Oakes Consulting Unavailable Hannawi, Yousef Consulting Unavailable Vahe, Courtney Primary Care Unavailable Vahe, Courtney Referring Unavailable Estefani Mohan Attending Unavailable Vahe, Courtney Primary Care Unavailable Vahe, Courtney Referring Unavailable Dereje Adams Attending Unavailable Wayt Byron MARTINEZ Attending Unavailable Vahe, Courtney Primary Care Unavailable WayByron Aguilar Referring Unavailable Vahe, Courtney Primary Care Unavailable Byron Brady Referring Unavailable Byron Brady Attending Unavailable Vahe, Courtney Primary Care Unavailable Estefani Mohan Referring Unavailable Estefani Mohan Attending Unavailable Byron Brady Unavailable Allergies Allergy Classification Reported Allergen(s) Allergy Type Date of Onset Reaction(s) Facility (3 sources) acetaminophen / HYDROcodone; Translations: [HYDROCODONE-ACET AMINOPHEN] Drug Allergy 9 [facility] Repository (2 sources) peanut; Translations: [PEANUTS] Propensity to adverse reactions to food (disorder) 2 [facility] Repository (4 sources) penicillin; Translations: [PENICILLIN] Drug Allergy 7 Dyspnea (finding) [facility] Repository (2 sources) varenicline; Translations: [VARENICLINE] Drug Allergy 4 [facility] Repository (2 sources) AMOXICILLIN-POT CLAVULANATE; Translations: [AMOXICILLIN-POT CLAVULANATE] Propensity to adverse reactions to drug (disorder) 9 [facility] Repository (1 source) Acetaminophen / oxyCODONE Drug Allergy 1 Itching [facility] (7 sources) Penicillins; Translations: [Penicillins] Propensity to adverse reactions to drug 7 Anaphylaxis [facility] Work Phone: (2 sources) Acetaminophen / HYDROcodone; Translations: [acetaminophen-hy drocodone] Drug Allergy Migraine (disorder), Itching (finding) [facility] (2 sources) Acetaminophen / oxyCODONE; Translations: [acetaminophen-ox ycodone] Drug Allergy Migraine (disorder), Itching (finding) [facility] (6 sources) traMADol; Translations: [tramadol] Drug Allergy 5 Other [facility] Comment on above: itchy and gittery (1 source) Ciprofloxacin; Translations: [ciprofloxacin] Drug Allergy Itching (finding), Pharyngeal swelling (finding) [facility] (1 source) metroNIDAZOLE; Translations: [metronidazole] Drug Allergy Pharyngeal swelling (finding), Itching (finding) [facility] (6 sources) HYDROcodone; Translations: [hydrocodone bitartrate] Drug Allergy 5 Other [facility] (5 sources) oxyCODONE Drug Allergy 5 Other [facility] (1 source) oxyCODONE Drug Allergy 5 [facility] Repository (1 source) traMADol Drug Allergy 5 [facility] Repository Medications Current Medications Medication Drug Class(es) Dates Sig (Normalized) Sig (Original) aspirin 81 mg delayed release oral tablet (5 sources) Platelet Aggregation Inhibitor, Nonsteroidal Anti-inflammatory Drug Start: 07-12-2024 take 1 tablet by mouth once daily Aspirin (Adult Aspirin Regimen) 81 mg tablet,delayed release (DR/EC) Active 81 mg PO daily July 12, 2024 12:00am atorvastatin 10 mg oral tablet (5 sources) HMG-CoA Reductase Inhibitor Start: 08-11-2024 take 1 tablet by mouth at bedtime Atorvastatin (Lipitor) 10 mg tablet Active 10 mg PO AT BEDTIME August 11, 2024 12:00am ciprofloxacin 500 mg oral tablet (3 sources) Quinolone Antimicrobial Start: 10-11-2024 take 1 tablet by mouth twice daily Ciprofloxacin Hcl 500 mg tablet Active 500 mg PO TWICE A DAY October 11, 2024 12:00am October 24, 2024 12:00am Start: 02-18-2023 ciprofloxacin 500 mg oral tablet Dose : 500 mg = 1 tab(s), Oral, q12h, # 20 tab(s), 0 Refill(s), 83.3 Start Date: 02/18/23 Status: Ordered Start: 04-29-2017 Cipro 500 mg o ral tablet Dose : 500 mg = 1 tab(s), Oral, BID, 0 Refill(s) Start Date: 04/29/17 Status: Ordered cyclobenzaprine hydrochloride 5 mg oral tablet (5 sources) Muscle Relaxant Start: 09-27-2024 take 2 tablets by mouth three times daily at bedtime for muscle spasms Cyclobenzaprine 5 mg tablet Active 5 mg PO THREE TIMES A DAY as needed for muscle spasm September 27, 2024 12:00am Can take two tabs at bedtime Dexamethasone / Neomycin / Polymyxin B (1 source) Aminoglycoside Antibacterial, Polymyxin-class Antibacterial, Corticosteroid Start: 05-12-2021 End: 05-19-2021 take 1 dose into the eye(s) every four hours Maxitrol ophthalmic suspension Dose = 1 drop(s), Ophthalmic, q4h, X 7 day(s), # 5 mL, 0 Refill(s) Start Date: 05/12/21 Stop Date: 05/19/21 Status: Ordered docusate sodium 100 mg oral capsule (1 source) Start: 02-18-2023 docusate sodium 100 mg oral capsule Dose : 100 mg = 1 cap(s), Oral, BID, # 20 cap(s), 0 Refill(s) Start Date: 02/18/23 Status: Ordered levoFLOXacin 750 mg oral tablet (1 source) Quinolone Antimicrobial Start: 02-18-2023 End: 02-24-2023 levoFLOXacin 750 mg oral tablet Dose : 750 mg = 1 tab(s), Oral, q24h, Stat tomorrow 02/19/23 take with a probiotic, # 6 tab(s), 0 Refill(s), 83.3 Start Date: 02/18/23 Stop Date: 02/24/23 Status: Ordered metroNIDAZOLE 500 mg oral tablet (3 sources) Nitroimidazole Antimicrobial Start: 10-11-2024 take 1 tablet by mouth three times daily Metronidazole 500 mg tablet Active 500 mg PO THREE TIMES A DAY 42 14 October 11, 2024 12:00am October 24, 2024 12:00am Start: 02-18-2023 metroNIDAZOLE 500 mg oral tablet Dose : 500 mg = 1 tab(s), Oral, TID, # 30 tab(s), 0 Refill(s), 83.3 Start Date: 02/18/23 Status: Ordered Start: 04-29-2017 Flagyl 500 mg oral tablet Dose : 1,000 mg = 2 tab(s), Oral, Once, # 2 tab(s), 0 Refill(s) Start Date: 04/29/17 Status: Ordered sodium chloride flush 0.9 % injection 3 mL (1 source) Start: 03-14-2021 sodium chlorid e flush 0.9 % injection 3 mL traMADol hydrochloride 50 mg oral tablet (2 sources) Opioid Agonist Start: 02-18-2023 traMADol 50 mg oral tablet Dose : 50 mg = 1 tab(s), Oral, q6h, PRN for pain, # 12 tab(s), 0 Refill(s), 83.3 Start Date: 02/18/23 Status: Ordered Start: 03-14-2021 End: 03-17-2021 traMADol (ULTRAM) 50 MG tabl et Indications: Open fracture of tuft of distal phalanx of finger , Laceration of left index finger without foreign body without damage to nail, initial encounter Take 1 tablet by mouth every 6 hours as needed for Pain for up to 3 days. Intended supply: 3 days. Take lowest dose possible to manage pain 12 tablet 0 03/14/2021 03/17/2021 Active Completed/Discontinued Medications Medication Drug Class(es) Dates Sig (Normalized) Sig (Original) bacitracin zinc 0.5 unt/mg topical ointment (1 source) Start: 03-14-2021 End: 03-14-2021 bacitracin ointment Start: 03-14-2021 End: 03-14-2021 bacitracin ointment cephalexin 500 mg oral capsule (2 sources) Cephalosporin Antibacterial Start: 03-14-2021 End: 03-21-2021 cephALEXin (KEFLEX) capsule 500 mg 10 ml lidocaine hydrochloride 10 mg/ml injection (1 source) Antiarrhythmic, Amide Local Anesthetic Start: 03-14-2021 End: 03-14-2021 lidocaine PF 1 % injection 10 mL sertraline 25 mg oral tablet (15 sources) Serotonin Reuptake Inhibitor Start: 06-22-2024 End: 08-09-2024 take 1 tablet by mouth once daily Sertraline (Zoloft) 25 mg tablet Discontinued 25 mg PO daily July 12, 2024 4:55pm August 09, 2024 10:03am Problems Active Problems Problem Classification Problem Date Documented Da te Episodic/Chronic Abdominal hernia (10 sources) Inguinal hernia; Translations: [Umbilical hernia] Onset: 5 03-18-2017 Episodic Comment on above: Left side Abdominal pain (17 sources) Abdominal pain; Translations: [Left inguinal pain] Onset: 5 04-29-2017 Episodic Comment on above: Patient is a 53-year -old male who presents for concern for recurrent left inguinal hernia given presence of radiating left groin discomfort but has not appreciated any bulging of the right groin. He underwent CT imaging through his PCP which did not show evidence of a hernia but did find evidence of acute diverticulitis. I was asked to see the patient for possible occult hernia. However, as I carefully listened to patient's history he appears to have some persistent neuropathic discomfort after a remote inguinal hernia repair with mesh which required mesh explantation. I do not feel any evidence of a recurrent hernia on exam and have carefully reviewed his CT imaging with both him and his which shows no evidence of recurrence. Instead, it does show clear evidence of diverticulitis and potentially concurrent inflammatory bowel disease. Patient states that he completed a course of antibiotics for the diverticulitis but has significant left lower quadrant pain still on palpation. In addition to this source of discomfort he does have a single enlarged inguinal lymph node that is tender to palpation but I believe these are the 3 causes of his discomfort and not a recurrent hernia. In the absence of a hernia I believe he should be able to return to work with light duty and have refilled his prescription for ciprofloxacin and Flagyl to try to bring about a resolution to his colon inflammation but have made additional referrals as felt appropriate and agreed upon by the patient. 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 Diverticulosis and diverticulitis (4 sources) Diverticulitis; Translations: [Diverticulitis of large intestine] Onset: 0 03-18-2017 Chronic Comment on above: Patient with persist ent left lower quadrant tenderness following reported course of ciprofloxacin and Flagyl Fracture of upper limb (1 source) Open fracture finger distal phalanx, tuft; Translations: [Displaced fracture of distal phalanx of unspecified finger, initial encounter for open fracture] Episodic Headache; including migraine (5 sources) Acute headache; Translations: [Acute headache] 06-07-2024 Episodic Headache; including migraine (1 source) Headache; including migraine; Translations: [Headache, unspecified] Onset: 5 Immunizations and screening for infectious disease (6 sources) Immunization due; Translations: [Encounter for immunization] Onset: 5 08-11-2024 Episodic Malaise and fatigue (5 sources) Right hemiparesis; Translations: [Weakness] 06-07-2024 Episodic Noninfectious gastroenteritis (4 sources) Colitis; Translations: [Non-specific colitis] Onset: 7 06-26-2017 Episodic Open wounds of extremities (1 source) Laceration of left index finger; Translations: [Laceration without foreign body of left index finger without damage to nail, initial encounter] Episodic Other circulatory disease (10 sources) Elevated blood-pressure reading without diagnosis of hypertension; Translations: [Elevated blood-pressure reading, without diagnosis of hypertension] 05-30-2024 Episodic Other connective tissue disease (5 sources) Neurological symptom; Translations: [Unspecified symptoms and signs involving the nervous system] 06-07-2024 Episodic Other connective tissue disease (5 sources) Weakness of face muscles; Translations: [Facial weakness] 06-07-2024 Episodic Other gastrointestinal disorders (2 sources) Diarrhea 04-29-2017 Episodic Other nervous system disorders (10 sources) H/O: migraine; Translations: [Personal history of other diseases of the nervous system and sense organs] 05-30-2024 Episodic Other nervous system disorders (5 sources) Dysarthria; Translations: [Dysarthria and anarthria] 06-07-2024 Episodic Other nervous system disorders (2 sources) Personal history of other diseases of the nervous system and sense organs; Translations: [Personal history of other diseases of the nervous system and sense organs] Onset: 5 Episodic Phlebitis; thrombophlebitis and thromboembolism (8 sources) Portal vein thrombosis; Translations: [Portal vein thrombosis] Onset: 5 09-27-2024 Episodic Regional enteritis and ulcerative colitis (8 sources) Crohn's disease; Translations: [Crohn's disease, unspecified, without complications] Onset: 5 08-11-2024 Chronic Comment on above: Patient describes pr ior diagnosis of Crohn's disease which is not currently followed or treated per patient's request. I attempted to reassure him today that medical management of inflammatory bowel disease has evolved significantly since the time of treatment for his father and have shared my concerns about leaving it untreated especially in the setting of concurrent tobacco use. I believe this could complicate his ability to resolve his diverticular discomfort and have encouraged him to establish with gastroenterology. He is receptive. Residual codes; unclassified (15 sources) Nicotine user; Translations: [Tobacco use] 06-22-2024 Episodic Residual codes; unclassified (5 sources) Family history of cancer of colon; Translations: [Family history of malignant neoplasm of digestive organs] 08-11-2024 Episodic Residual codes; unclassified (1 source) Family history of malignant neoplasm of digestive organs; Translations: [Family history of malignant neoplasm of digestive organs] Onset: 5 Episodic Sprains and strains (5 sources) Sprain of acromioclavicular ligament; Translations: [Sprain of unspecified acromioclavicular joint, initial encounter] 12-23-2016 Episodic Substance-related disorders (20 sources) Harmful pattern of use of caffeine; Translations: [Other stimulant abuse, uncomplicated] Onset: 5 08-11-2024 Chronic Comment on above: cut back 1.5 pots pe r day Unclassified (4 sources) Left inguinal pain; Translations: [pain in groin, back, leg] Unclassified (1 source) K57.92 - Diverticulitis of intestine, part unspecified, without perforation or abscess without bleeding,K50.90 - Crohn's disease, unspecified, without complications Past or Other Problems Problem Classification Problem Date Documented Da te Episodic/Chronic Other circulatory disease (1 source) Elevated blood-pressure reading, without diagnosis of hypertension; Translations: [Elevated blood-pressure reading, without diagnosis of hypertension] Onset: 05-31-2024 Episodic Other connective tissue disease (1 source) Facial weakness; Translations: [Facial weakness] Onset: 05-31-2024 Episodic Other nervous system disorders (1 source) Dysarthria and anarthria; Translations: [Dysarthria and anarthria] Onset: 05-31-2024 Episodic Other nervous system disorders (1 source) Slurred speech; Translations: [Slurred speech] Onset: 06-16-2024 Episodic Results Test Name Value Interpretation Reference Range Facility [facility] 10-18-2024 Albumin [Mass/Vol] 4.2 g/dL Normal 3.5-5.0 [facility] Comment on above: Performed By: #### L 100.0100, L500.4050 ####[facility] [address] [place], [address] Albumin/Globulin [Mass ratio] 1.6 {ratio} Normal 0.9-2.4 [facility] Comment on above: Performed By: #### L 100.0100, L500.4050 ####[facility] [address] [place], [address] ALK PHOS 67 U/L Normal 40-129 [facility] Comment on above: Performed By: #### L 100.0100, L500.4050 ####[facility] [address] [place], [address] ALT [Catalytic activity/Vol] 16 U/L Normal <=46 [facility] Comment on above: Performed By: #### L 100.0100, L500.4050 ####[facility] [address] [place], [address] AST [Catalytic activity/Vol] 24 U/L Normal <=37 [facility] Comment on above: Performed By: #### L 100.0100, L500.4050 ####[facility] [address] [place], [address] BUN/CRE 12.8 RATIO Normal 10-20 [facility] Comment on above: Performed By: #### L 100.0100, L500.4050 ####[facility] [address] [place], [address] Calcium [Mass/Vol] 9.2 mg/dL Normal 7.6-11.0 [facility] Comment on above: Performed By: #### L 100.0100, L500.4050 ####[facility] [address] [place], [address] Chloride [Moles/Vol] 105 mmol/L Normal 98-108 [facility] Comment on above: Performed By: #### L 100.0100, L500.4050 ####[facility] [address] [place], [address] CO2 [Moles/Vol] 24.0 mmol/L Normal 21.0-32.0 [facility] Comment on above: Performed By: #### L 100.0100, L500.4050 ####[facility] [address] [place], [address] Creatinine [Mass/Vol] 0.76 mg/dL Normal 0.70-1.20 [facility] Comment on above: Performed By: #### L 100.0100, L500.4050 ####[facility] [address] [place], [address] GAP 10 Normal 5-15 [facility] Comment on above: Performed By: #### L 100.0100, L500.4050 ####[facility] [address] [place], [address] GFR/1.73 sq M.predicted among non-blacks MDRD (S/P/Bld) [Vol rate/Area] 109 mL/min/{1.73_m2} Normal >60 [facility] Comment on above: Result Comment: mL/m in/1.73m2 CKD-EPI Creatinine Equation (2020) Performed By: #### L 100.0100, L500.4050 ####[facility] [address] [place], [address] Globulin (S) [Mass/Vol] 2.7 g/dL Normal 2.2-4.2 [facility] Comment on above: Performed By: #### L 100.0100, L500.4050 ####[facility] [address] [place], [address] Glucose [Mass/Vol] 89 mg/dL Normal 70-99 [facility] Comment on above: Performed By: #### L 100.0100, L500.4050 ####[facility] [address] [place], [address] Potassium [Moles/Vol] 4.0 mmol/L Normal 3.3-5.1 [facility] Comment on above: Performed By: #### L 100.0100, L500.4050 ####[facility] [address] [place], [address] Sodium [Moles/Vol] 139 mmol/L Normal 133-145 [facility] Comment on above: Performed By: #### L 100.0100, L500.4050 ####[facility] [address] [place], [address] T BILI < 0.15 Normal 0.00-1.30 [facility] Comment on above: Performed By: #### L 100.0100, L500.4050 ####[facility] [address] [place], [address] T PROT 6.8 g/dL Normal 5.9-8.4 [facility] Comment on above: Performed By: #### L 100.0100, L500.4050 ####[facility] [address] [place], [address] Urea nitrogen [Mass/Vol] 10 mg/dL Normal 4-19 [facility] Comment on above: Performed By: #### L 100.0100, L500.4050 ####[facility] [address] [place], [address] Abdomen/Pelvis WITH Contrast on 10-17-2024 Abdomen/Pelvis WITH Contrast [facility] [address] [place] [address] Abdomen/Pelvis WITH Contrast MR#: [id number] Acct: [id number] Name: KATIE BERNAL Jr. Rep #: [id number] : [id number] M 53 From: Varun ferrer MD PCP: Dr. Courtney Cotter MD Status: REG CLI Study: Abdomen/Pelvis WITH Contrast Date of Exam: Exam# [id number] Ordering Dr: Estefani Mohan PROCEDURE: ABDOMEN/PELVIS WITH CONTRAST 10/17/2024 REASON FOR EXAM: LLQ PAIN/LEFT INGUINAL, DIVERTICULITIS ON 09/23 CT TECHNIQUE: ABDOMEN/PELVIS WITH CONTRAST. Coronal and Sagittal reconstruction series were provided. ORAL CONTRAST TYPE: Gastrografin. CONTRAST: Isovue 300 VOLUME: 100 mL One or more dose reduction techniques were used (e.g., Automated exposure control, adjustment of the mA and/or kV according to patient size, use of iterative reconstruction technique. RADIATION DOSE SUMMARY: CTDlvol: 12 mGy DLP: 740.39 mGycm COMPARISON: Prior study dated September 23, 2024. FINDINGS: Lung bases: Unremarkable Liver: Diffuse fatty infiltration. Subcentimeter cyst seen in the anterior medial aspect of the right lobe of the liver. Gallbladder: Unremarkable. Spleen: Normal size. Pancreas: Normal size without evidence of mass surrounding inflammation or ductal dilation. Adrenals: Unremarkable Kidneys: Unremarkable Bladder: Mild degree of diffuse bladder wall thickening. Reproductive Organs: Normal uterine size and contour. Ovaries are unremarkable. Bowel: Sigmoid diverticulosis. Mild degree of increased inflammatory changes are seen in the surrounding peritoneal fat suggestive of sigmoid diverticulitis. No obvious abscess or collection of fluid is seen at this time. Appendix: Unremarkable Lymph nodes: Unremarkable. Vasculature: Mild diffuse atherosclerotic calcifications are noted. Peritoneum / Retroperitoneum: Unremarkable Bones: Unremarkable CT/Abdomen/Pelvis WITH Contrast IMPRESSION: Findings suggestive of non complicated acute sigmoid diverticulitis. Stable subcentimeter hypodensity in the midportion of the right lobe of the liver suggestive of a small cyst. Reading Location: [facility] CC: EDMUND Mohan; Dr. Courtney Cotter MD Color Strainer: Signed Normal [facility] CBC W/Diff, Automatedon 06- Absolute Lymph 2.82 X10 3/uL Normal 0.83-4.51 [facility] Comment on above: Performed By: #### L 100.0100, L500.4050 ####[facility] [address] [place], [address] Absolute Neut 7.2 X10 3/uL Normal 2.0-7.7 [facility] Comment on above: Performed By: #### L 100.0100, L500.4050 ####[facility] [address] [place], [address] Basophils/100 WBC (Bld) 0.9 % Normal 0-1 [facility] Comment on above: Performed By: #### L 100.0100, L500.4050 ####[facility] [address] [place], [address] Eosinophils/100 WBC (Bld) 3.8 % Normal 0-5 [facility] Comment on above: Performed By: #### L 100.0100, L500.4050 ####[facility] [address] [place], [address] Erythrocyte distribution width (RBC) [Ratio] 13.9 % Normal 11.6-14.6 [facility] Comment on above: Performed By: #### L 100.0100, L500.4050 ####[facility] [address] [place], [address] Hematocrit (Bld) [Volume fraction] 45.4 % Normal 40-54 [facility] Comment on above: Performed By: #### L 100.0100, L500.4050 ####[facility] [address] [place], [address] Hemoglobin (Bld) [Mass/Vol] 15.4 g/dL Normal 13.0-16.5 [facility] Comment on above: Performed By: #### L 100.0100, L500.4050 ####[facility] [address] [place], [address] IG% 0.300 Normal 0.0-0.9 [facility] Comment on above: Result Comment: IG% - Immature Granulocytes (promyelocytes, myelocytes and metamyelocytes) > 1% indicates that a LEFT SHIFT is Present. Performed By: #### L 100.0100, L500.4050 ####[facility] [address] [place], [address] Lymphocytes/100 WBC (Bld) 24.2 % Normal 19-41 [facility] Comment on above: Performed By: #### L 100.0100, L500.4050 ####[facility] [address] [place], [address] MCH (RBC) [Entitic mass] 30.8 pg Normal 27.0-32.0 [facility] Comment on above: Performed By: #### L 100.0100, L500.4050 ####[facility] [address] [place], [address] MCHC (RBC) [Mass/Vol] 33.9 g/dL Normal 32-36 [facility] Comment on above: Performed By: #### L 100.0100, L500.4050 ####[facility] [address] [place], [address] MCV (RBC) [Entitic vol] 90.8 fL Normal 80-94 [facility] Comment on above: Performed By: #### L 100.0100, L500.4050 ####[facility] [address] [place], [address] Monocytes/100 WBC (Bld) 8.5 % Normal 0-10 [facility] Comment on above: Performed By: #### L 100.0100, L500.4050 ####[facility] [address] [place], [address] Neutrophils/100 WBC (Bld) 62.3 % Normal 47-70 [facility] Comment on above: Performed By: #### L 100.0100, L500.4050 ####[facility] [address] [place], [address] Nucleated RBC (Bld) [#/Vol] 0 10*3/uL Normal 0-5 [facility] Comment on above: Performed By: #### L 100.0100, L500.4050 ####[facility] [address] [place], [address] Platelet mean volume (Bld) [Entitic vol] 9.6 fL Normal 6.2-12.0 [facility] Comment on above: Performed By: #### L 100.0100, L500.4050 ####[facility] [address] [place], [address] Platelets (Bld) [#/Vol] 320 10*3/uL Normal 150-450 [facility] Comment on above: Performed By: #### L 100.0100, L500.4050 ####[facility] [address] [place], [address] RBC (Bld) [#/Vol] 5.00 10*6/uL Normal 4.6-6.2 [facility] Comment on above: Performed By: #### L 100.0100, L500.4050 ####[facility] [address] [place], [address] RDW SD 46.3 fl High 35.1-43.9 [facility] Comment on above: Performed By: #### L 100.0100, L500.4050 ####[facility] [address] [place], [address] WBC (Bld) [#/Vol] 11.6 10*3/uL High 4.4-11.0 [facility] Comment on above: Performed By: #### L 100.0100, L500.4050 ####[facility] [address] [place], [address] Gastroenterology Visit Repor ton 10-17-2024 Gastroenterology Visit Report [facility] [address] [place] [address] OFFICE VISIT Date of Service: 10/17/24 MR#: [id number] Acct: [id number] Name: KATIE BERNAL Gerda Vargas. Rep #: [id number] : 1970 Provider: EDMUND marino Age/Sex: 53/M [place] [facility] [place] Status: Signed Intake Vital Signs 10/11/24 14:44 10/17/24 08:43 Height 5 ft 7 in 5 ft 7 in Weight: 172 lb 4 oz 172 lb 2 oz BMI 26.9 26.9 BP 129/89 H 124/77 H Blood Pressure Location Rt brachial Position Sitting Respiration 17 18 Pulse 77 88 Pulse Source Monitor Pulse Oximetry (%) 97 98 Oxygen Delivery Method room air room air Intake Visit Reasons: CROHNS SPOT ON LIVER(CLOT) DIVERTICULITIS Chief Complaint: acute possible hernia Digital Account Executive Required: No Accompanied by: Is patient in pain?: Yes (in area of hernia mesh repair LLQ) Pain scale (1-10): 9 Allergies hydrocodone bitartrate (From Vicodin) Allergy (Verified 10/17/24 08:41) Other Penicillins Allergy (Verified 10/17/24 08:41) Anaphylaxis oxycodone Adverse Reaction (Verified 10/17/24 08:41) Other tramadol Adverse Reaction (Verified 10/17/24 08:41) Other Medications ???Medication ???Instructions ???Recorded ???Confirmed ???Type aspirin 81 mg tablet,delayed 81 mg PO QDAY 07/12/24 10/17/24 Hi story release (Adult Aspirin Regimen) sertraline 25 mg tablet 25 mg PO DAILY #90 tabs 08/09/24 0 10/17/24 Rx atorvastatin 10 mg tablet (Lipitor) 10 mg PO QHS #30 tabs 08/11/24 10/17/24 Rx cyclobenzaprine 5 mg tablet 5 mg PO TID PRN muscle spasm #30 0 09/27/24 10/17/24 Rx tabs ciprofloxacin HCl 500 mg tablet 500 mg PO BID 14 days #28 tabs 02/2510/17/24 Rx metronidazole 500 mg tablet 500 mg PO TID 14 days #42 tabs 02/2510/17/24 Rx Nurse's Note: LLQ pain 9 out of 10. Sharp and stabbing. Is in hernia mesh area. Had hernia repair 15 years ago. 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 There is an ovoid hypodensity measuring 1.6 cm adjacent to the involved colon which may represent a developing abscess or inflamed diverticulum. - Heterogeneous enhancement of the posterior right hepatic lobe, nonspecific and which may represent transient hepatic attenuation differences. There is streaky hypodensity present within the main and right portal veins. - Circumferential bladder wall thickening, which may be reactive or the result of cystitis. Correlate with urinalysis. US 09/29/2024 Findings suggestive of partial thrombosis of the portal vein. The portal flow is hepatopetal. Sludge in the gallbladder lumen as well as a 2 mm x 3 mm x 2 mm polyp adjacent to the gallbladder wall. - seen in office today with his - father with colon CA in 50's and crohn's - he reports a history of Crohn's, diagnosed 15 years ago, reports he has never been treated from IBD - he is on his second round of same ATB for acute diverticulitis - doubled over with abdominal pain, uses a cane at home due to pain, but forgot to bring his cane with him today - LLQ pain in hernia mesh area, second repair 15 years ago - c/o LLQ sharp pain radiating down left leg - he is having normal BM - except ATB caused some constipation but now having normal BM - he is currently on Flagyl and Cipro - he is 3-4d into 14d treatment - the pain did not get any better with first 14d course of ATB - reports the pain is 9/10 and getting worse - denies any fevers but is experiencing night sweats - c/o nausea when pain is severe - denies any weight loss - he is currently having a BM daily - he is taking a muscle relaxer for the pain and advil - the LLQ pain has been ongoing for almost a month (more content not included)... Normal [facility] Prothrombin Time w/INRon INR Coag (PPP) [Relative time] 1.1 {INR} Normal [facility] Comment on above: Performed By: #### L 300.2990 ####[facility] [address] [place], [address] PT Coag (PPP) [Time] 14.0 s Normal 11.7-14.9 [facility] Comment on above: Performed By: #### L 300.3900 ####[facility] [address] [place], [place], [address] Surgery Visit Reporton 10-11 Surgery Visit Report [facility] [address] [place], [place] [address] OFFICE VISIT Date of Service: 10/11/24 MR#: [id number] Acct: [id number] Name: KATIE BERNAL Jr. Rep #: [id number] : 1970 Provider: Dr. Dereje santana MD Age/Sex: 53/M Location: [facility] Status: Signed Intake Vital Signs 09/22/24 12:28 10/11/24 14:44 Height 5 ft 7 in 5 ft 7 in Weight: 170 lb 172 lb 4 oz BMI 26.6 26.9 BP 124/78 H 129/89 H Blood Pressure Location Rt brachial Rt brachial Position Sitting Sitting Respiration 12 17 Pulse 52 L 77 Pulse Source Monitor Monitor Temp 97.0 F L Temp Source Temporal Pulse Oximetry (%) 95 97 Oxygen Delivery Method room air room air Intake Visit Reasons: POSSIBLE INGUINAL HERNIA Chief Complaint: acute possible hernia Is patient in pain?: Yes (c/o left abdominal/inguinal pain. Chronic ache) Allergies hydrocodone bitartrate (From Vicodin) Allergy (Verified 10/11/24 14:45) Other Penicillins Allergy (Verified 10/11/24 14:45) Anaphylaxis oxycodone Adverse Reaction (Verified 10/11/24 14:45) Other tramadol Adverse Reaction (Verified 10/11/24 14:45) Other Medications ???Medication ???Instructions ???Recorded ???Confirmed ???Type aspirin 81 mg tablet,delayed 81 mg PO QDAY 07/12/24 10/11/24 Hi story release (Adult Aspirin Regimen) sertraline 25 mg tablet 25 mg PO DAILY #90 tabs 08/09/24 0 10/11/24 Rx atorvastatin 10 mg tablet (Lipitor) 10 mg PO QHS #30 tabs 08/11/24 10/11/24 Rx cyclobenzaprine 5 mg tablet 5 mg PO TID PRN muscle spasm #30 0 09/27/24 10/11/24 Rx tabs ciprofloxacin HCl 500 mg tablet 500 mg PO BID 14 days #28 tabs 02/2510/11/24 Rx metronidazole 500 mg tablet 500 mg PO TID 14 days #42 tabs 02/2510/11/24 Rx PFSH Medical History (Updated 10/11/24 @ 16:[address] Dereje Adams MD) Caffeine abuse Hernia Crohn's disease Stroke Surgical History (Updated 10/11/24 @ 16:[address] 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 This finding was first noticed by patient a couple weeks ago after lifting his granddaughter and feeling a pull and a tear. He states it feels the same as when he had a groin hernia that was first repaired by Dr. Jasbir Ochoa approximately 15 years ago. He notes that he experienced debilitating pain after that hernia repair and just 10 months after the index operation underwent mesh explantation with a surgeon at [facility] who completed a simultaneous umbilical hernia repair. His provides some of the history and shares that some of the mesh had to be left adherent to the spermatic cord on the left. In addition to the pain, Mr. Bernal notes that there is a small knot of his left groin where there seems to be a focus for his discomfort. Beyond this he notes that every now and then he will experience some pain in his left testicle and pain that shoots down his knee. He specifically denies any bulging. Asked directly as to whether or not he was advised of any other findings on his recent CT imaging Mr. Bernal confirms that he was informed about the partially occlusive portal vein thrombus and notes that this has been a chronic/stable finding for years. He later confirms that he was also informed of a finding of diverticulitis and just recently completed a course of ciprofloxacin and Flagyl. Regarding his diagnosis of Crohn's disease, Mr. Bernal shares that he has not undergone treatment for this condition as he refuses since he saw the many side effects that his father???also diagnosed with Crohn's disease???faced with these medications. ROS General General: No weight change, appetite, fatigue, colon cancer, breast cancer or weakness HEENT HEENT: No difficulty swallowing, eye injury, eye surgery, swollen glands or hoarseness Endo Endocrine: No thyroid disease, diabetes mellitus, thyroid cancer, Hair loss, heat intolerance or cold intolerance Skin Skin: No rash or changing moles Musc Musculoskeletal: No back problems, (more content not included)... [facility] [address] [place], [place] [address] Liver MR#: [id number] Acct: [id number] Name: KATIE BERNAL Jr. Rep #: [id number] : 1970 M 53 From: Varun ferrer MD PCP: Dr. Courtney Cotter MD Status: REG CLI Study: Liver Date of Exam: 09/29/24 Exam# [id number] Ordering Dr: Byron Hoyt PA PROCEDURE: LIVER 09/29/2024 REASON FOR EXAM: POSSIBLE EMBOLI Possible thrombosis of the portal vein. COMPARISON: Prior CT scan of the abdomen and pelvis dated September 23, 2024. FINDINGS: Liver: Diffusely echogenic suggesting fatty infiltration. Findings suggestive of partial thrombosis of the portal vein. The portal flow is hepato pedal. Gallbladder: Sludge is seen within the gallbladder lumen. I suspect a 2 mm x 3 mm by 2 mm polyp adjacent to the gallbladder wall. Common bile duct: Normal measuring 3 mm.. Pancreas: Visualized portions are sonographically unremarkable. Other: Right kidney is unremarkable. No evidence of splenomegaly. The spleen measures 8.4 cm 4.3 cm x 3.1 cm. 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 The portal flow is hepatopetal. Sludge in the gallbladder lumen as well as a 2 mm x 3 mm x 2 mm polyp adjacent to the gallbladder wall. Reading Location: [id number] CC: Dr. Courtney Cotter MD; MICHELLE Hernandez Color Strainer: Signed Normal [facility] Abdomen/Pelvis WITH Contrast on 09-23-2024 Abdomen/Pelvis WITH Contrast [facility] Imaging Services [address] [place], [place] [address] Abdomen/Pelvis WITH Contrast MR#: [id number] Acct: [id number] Name: KATIE BERNAL Jr. Rep #: [id number] : 1970 M 53 From: Alejandro Judge MD PCP: Dr. Courtney Cotter MD Status: REG CLI Study: Abdomen/Pelvis WITH Contrast Date of Exam: Exam# [id number] Ordering Dr: Byron Hoyt PROCEDURE: ABDOMEN/PELVIS WITH CONTRAST 09/23/2024 REASON FOR EXAM: PAIN TECHNIQUE: Abdomen and pelvis CT with oral and intravenous contrast. Coronal and Sagittal reconstruction series were provided. PATIENT PREPARATION: Per protocol CONTRAST: 97 mL Isovue 370 One or more dose reduction techniques were used (e.g., Automated exposure control, adjustment of the mA and/or kV according to patient size, use of iterative reconstruction technique. RADIATION DOSE SUMMARY: CTDlvol: 13.5 mGy DLP: 725 mGycm COMPARISON: None FINDINGS: Lung bases: Calcified granuloma in the lingula. Otherwise unremarkable. Liver: Subcentimeter hypodensity in the right hepatic lobe is too small to characterize. There is heterogeneous appearance of the posterior right hepatic lobe. There is streaky hypodensity present within the main and right portal veins. Gallbladder: Unremarkable Spleen: Normal size. Pancreas: Normal size without evidence of mass surrounding inflammation or ductal dilation. Adrenals: Unremarkable Kidneys: No hydronephrosis or stone. Bladder: Circumferential bladder wall thickening. Reproductive Organs: Prostatomegaly. Bowel: There is wall thickening and inflammatory stranding surrounding the sigmoid colon in the region of diverticulosis. There is an ovoid hypodensity with a punctate focus of hyperdensity internally at the mesenteric aspect of the prox sigmoid colon wall measuring 1.6 x 1.2 cm (series 2, image 80). No air is present within this hypodensity. No obstruction. Appendix: The appendix is not identified. There is no inflammatory process identified in the right lower quadrant to suggest appendicitis. Lymph nodes: Subcentimeter retroperitoneal nodes are likely reactive. Vasculature: Mild diffuse atherosclerotic calcifications are noted. There are 2 right renal arteries. Bones: Unremarkable CT/Abdomen/Pelvis WITH Contrast IMPRESSION: 1. Inflammatory changes in the region of diverticulosis in the sigmoid colon, most suggestive of acute diverticulitis. There is an ovoid hypodensity measuring 1.6 cm adjacent to the involved colon which may represent a developing abscess or inflamed diverticulum. 2. Heterogeneous enhancement of the posterior right hepatic lobe, nonspecific and which may represent transient hepatic attenuation differences. However, given additional finding of streaky hypodensity within the portal veins, consider Doppler ultrasound to exclude portal vein thrombosis. 3. Circumferential bladder wall thickening, which may be reactive or the result of cystitis. Correlate with urinalysis. Reading Location: [id number] CC: Dr. Courtney Cotter MD; MICHELLE Hernandez Color Strainer: Signed Normal [facility] Internal Medicine Office Vis ito 09-22-2024 Internal Medicine Office Visit [facility] [address] [place] [address] [place] [address] OFFICE VISIT Date of Service: 09/22/24 MR#: [id number] Acct: [id number] Name: EDDA BERNAL Rep #: [id number] : 1970 Provider: MICHELLE Hernandez Age/Sex: 53/M [place] [facility] [place] Status: Signed Intake Vital Signs 08/11/24 08:27 09/22/24 12:28 Height 5 ft 7 in 5 ft 7 in Weight: 173 lb 2 oz 170 lb BMI 27.1 26.6 BP 118/78 124/78 H Blood Pressure Location Rt brachial Rt brachial Position Sitting Sitting Respiration 16 12 Pulse 78 52 L Pulse Source Monitor Monitor Temp 96.9 F L 97.0 F L Temp Source Temporal Temporal Pulse Oximetry (%) 92 95 Oxygen Delivery Method room air room air Intake Visit Reasons: acute - hernia Chief Complaint: acute possible hernia Digital Account Executive Required: No Accompanied by: Is patient in pain?: Yes (left inguinal) Pain scale (1-10): 9 Pain Scale - Faces (1-5): 5 Allergies hydrocodone bitartrate (From Vicodin) Allergy (Verified 09/22/24 12:24) Other Penicillins Allergy (Verified 09/22/24 12:24) Anaphylaxis oxycodone Adverse Reaction (Verified 09/22/24 12:24) Other tramadol Adverse Reaction (Verified 09/22/24 12:24) Other Medications ???Medication ???Instructions ???Recorded ???Confirmed ???Type aspirin 81 mg tablet,delayed 81 mg PO QDAY 07/12/24 09/22/24 Hi story release (Adult Aspirin Regimen) sertraline 25 mg tablet 25 mg PO DAILY #90 tabs 08/09/24 0 09/22/24 Rx atorvastatin 10 mg tablet (Lipitor) 10 mg PO QHS #30 tabs 08/11/24 09/22/24 Rx Have you fallen in the past year?: No Nurse's Note: left inguinal hernia pain has had sgy and revision removed old mesh [facility] Medical History Caffeine abuse Hernia Crohn's disease Stroke Surgical History H/O hernia repair History of appendectomy Family History Father CVA (cerebral vascular accident) Cancer lung Colon cancer, Onset Age: 50 Diabetes Grandfather Heart disease Mother Diabetes Grandmother Diabetes Social History household members: spouse current occupational status: employed 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 Patient states that he had hernia surgery back in 2009. They state that he ended up having this repaired again due to continued pains / problems about 8-9 months later. They state that they ended up removing the mesh and repairing it differently. He states that he has had continued intermittent discomfort over the years which they told him he would have. This past Thursday he went to left up his granddaughter and he felt like something pulled and tore and he has had discomfort since then. He has not noticed any swelling or bulging in the area or in the scrotum that it is just uncomfortable. He has been taking some Advil and has been doing some soaks in warm bath. ROS Const Constitutional: No body ache, excessive sweating, fatigue, fever(s), frequent falls, headache(s), snoring, weakness, weight change, sleep problems or change in appetite Eyes Eyes: No blurry vision, change in vision, eye pain or Light sensitivity ENT ENT: No abnormal hearing, ear or mastoid pain, tinnitus, nasal congestion, headache(s), neck pain or sore throat Resp Respiratory: No cough, shortness of breath, snoring or wheezing Cardio Cardiology: No chest pain at rest, chest pain with exertion, excessive sweating, shortness of breath, dyspnea on exertion, lightheadedness, orthopnea or palpitations Gastro GI: No abdominal pain, change in bowel habits, constipation, cramping, diarrhea, nausea/dyspepsia or vomiting Genitourinary Male: No burning urination, painful urination, urinary incontinence, urinary frequency or blood in urine Musc Musculoskeletal: No abnormal gait, joint pain, back pain, limited range of motion, neck pain, numbness, stiffness, tingling or Arthritis Skin Skin: No dry skin, redness, lesions, itchy eyes, rash or wounds Neuro Neurology: No abnormal gait, abnormal hearing, abnormal speech, dizziness, weakness, frequent falls, headache(s), memory loss, numbness or tingling Psych Psychiatric: No anxiety, No change in appetite, No depression, No memory loss and No Thoughts of harming yourself/Others Endo E (more content not included)... Normal [facility] Internal Medicine Office Vis itonella 08-10-2024 Internal Medicine Office Visit [facility] [address] [place] [address] [place] [address] OFFICE VISIT Date of Service: 08/11/24 MR#: [id number] Acct: [id number] Name: EDDA BERNAL Rep #: [id number] : 1970 Provider: Dr. 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 Chief Complaint: establishing Digital Account Executive Required: No Accompanied by: Self Is patient in pain?: No Allergies hydrocodone bitartrate (From Vicodin) Allergy (Verified 08/11/24 08:24) Other Penicillins Allergy (Verified 08/11/24 08:24) Anaphylaxis oxycodone Adverse Reaction (Verified 08/11/24 08:24) Other tramadol Adverse Reaction (Verified 08/11/24 08:24) Other Medications ???Medication ???Instructions ???Recorded ???Confirmed ???Type aspirin 81 mg tablet,delayed 81 mg PO QDAY 07/12/24 08/11/24 Hi story release (Adult Aspirin Regimen) sertraline 25 mg tablet 25 mg PO DAILY #90 tabs 08/09/24 0 08/11/24 Rx atorvastatin 10 mg tablet (Lipitor) 10 mg PO QHS #30 tabs 08/11/24 08/11/24 Rx Have you fallen in the past year?: No PFSH Medical History (Updated 08/11/24 @ 08:[address] Courtney Cotter MD) Caffeine abuse Hernia Crohn's disease Stroke Surgical History (Updated 08/11/24 @ 08:[address] Courtney Cotter MD) H/O hernia repair History of appendectomy Family History (Updated 08/11/24 @ 08:[address] Courtney Cotter MD) Father CVA (cerebral vascular accident) Cancer lung Colon cancer, Onset Age: 50 Diabetes Grandfather Heart disease Mother Diabetes Grandmother Diabetes Social History (Updated 08/11/24 @ 08:[address] 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 He was seeing Dr. Colunga and last saw them 'a while ago.' He is not due for any routine blood work. He reports he had a colonoscopy a couple of years ago through Dr. Davis. He does want a shingles vaccine, but at another time. He doesn't want any COVID or flu vaccines. He does smoke and doesn't want to quit at this time, but is trying to cut back. He doesn't need any refills. He reports he is eating healthy and has been making adjustments to his diet and staying active at work. He states his job is extremely physical. The patient was hospitalized back in May for a headache and concern of CVA. He states he was having a headache on his right side as well as right sided numbness and weakness. Work up showed findings of an old infarct without other findings. His symptoms resolved and he reports that they felt it was a TIA. He denies any further episodes of symptoms. He has been taking a daily aspirin as well as some elderberry supplements. The patient has been taking zoloft for his anxiety. He reports that he is doing well overall. He states the medication has helped calm down his temper. He denies any current concerns about his mental health nor any thoughts of suicide. The patient was diagnosed with Crohn's several years ago. He reports it is mostly managed with dietary changes and medical marijuana. He denies any recent flare ups and is overall doing well. ROS Const Constitutional: Positive for fatigue; No body ache, excessive sweating, fever(s), frequent falls, headache(s), snoring, weakness, weight change, sleep problems or change in appetite Eyes Eyes: No blurry vision, change in vision, eye pain or Light sensitivity ENT ENT: No abnormal hearing, ear or mastoid pain, tinnitus, nasal congestion, headache(s), neck pain or sore throat Resp Respiratory: No cough, shortness of breath, snoring or wheezing Cardio Cardiology: Positive for palpitations (with exertion); No chest pain at rest, chest pain with exertion, excessive sweating, shortness of breath, dyspnea on exertion, lightheadedness, orthopnea or other (no leg swelling) Gastro GI: No abdominal pain, change in bowel habits, constipation, cramping, diarrhea, Blood in stool, Black,tarry stools, nausea/dyspepsia or vomiting Genitourinary Male: No difficulty urinating, bu (more content not included)... Normal [facility] Internal Medicine Office Vis iton 07-12-2024 Internal Medicine Office Visit [facility] [address] [place] [address] [place] [address] OFFICE VISIT Date of Service: 07/12/24 MR#: [id number] Acct: [id number] Name: EDDA BERNAL Rep #: [id number] : 1970 Provider: MICHELLE Hernandez Age/Sex: 53/M [place] [facility] [place] Status: Signed Intake Vital Signs 06/22/24 15:39 07/12/24 15:53 Height 5 ft 7 in 5 ft 7 in Weight: 178 lb 4 oz 178 lb 4 oz BMI 27.9 27.9 BP 112/82 H 122/78 H Blood Pressure Location Rt brachial Rt brachial Position Sitting Sitting Respiration 16 12 Pulse 71 68 Pulse Source Monitor Monitor Temp 97.7 F L 96.5 F L Temp Source Temporal Temporal Pulse Oximetry (%) 94 94 Oxygen Delivery Method room air room air Intake Visit Reasons: 3 WEEKS Chief Complaint: fu Digital Account Executive Required: No Accompanied by: Self Is patient in pain?: No Allergies hydrocodone bitartrate (From Vicodin) Allergy (Verified 06/22/24 15:29) Other Penicillins Allergy (Verified 06/22/24 15:29) Anaphylaxis oxycodone Adverse Reaction (Verified 06/22/24 15:29) Other tramadol Adverse Reaction (Verified 06/22/24 15:29) Other Medications ???Medication ???Instructions ???Recorded ???Confirmed ???Type aspirin 81 mg tablet,delayed 81 mg PO QDAY 07/12/24 07/12/24 Hi story release (Adult Aspirin Regimen) sertraline 25 mg tablet (Zoloft) 25 mg PO QDAY #30 tabs 07/12/24 Rx Have you fallen in the past year?: No Nurse's Note: taking baby aspirin 81mg and zoloft and feels ok so far [facility] Medical History Hernia Crohn's disease Stroke Surgical History History of appendectomy Family History Father CVA (cerebral vascular accident) Other Colon cancer Heart disease Social History Smoking Status: Current every day smoker tobacco type: cigarettes alcohol intake: never substance use type: marijuana and other details: medical card what type of physical activity do you participate in: none HPI HPI Chief Complaint: fu Details: EDDA BERNAL, is a 53 M who presents to the office today for 1 month f/u since starting his medications Patient states that he has been really trying to reduce his caffeine. He states that he still gets his big morning coffee cup and then is drinking about 6-8 cups at night but is way better than 4-6 POTs that he was drinking. He states that this is definitely something though that he is still trying to reduce gradually. Patient also has been trying to consume more water which is something that he never did. He has been trying to cut back on his nicotine use as well. He states that right now its about a PPD and has definitely had days where it is even been less and so there is a good improvement. He states that the more he sits around the more he smoked So he has been trying to keep himself more occupied. He states that he knock on wood that he hasn't had a headache since his last visit. He states that he has noticed good improvement in his anxiety as well since starting the medication. He has not had any side effects or tolerance issues that he is aware of. In general he states things are or have been always stressful at work are not quite as bothersome to him since starting the med. He has noticed that when he has to drive that this is the thing at work that stresses him out. Since he hasn't been driving he hasn't been as stressed. ROS Const Constitutional: No body ache, excessive sweating, fatigue, fever(s), frequent falls, headache(s), snoring, weakness, weight change, sleep problems or change in appetite Eyes Eyes: No blurry vision, change in vision, eye pain or Light sensitivity ENT ENT: No abnormal hearing, ear or mastoid pain, tinnitus, nasal congestion, headache(s), neck pain or sore throat Resp Respiratory: No cough, shortness of breath, snoring or wheezing Cardio Cardiology: No chest pain at rest, chest pain with exertion, excessive sweating, shortness of breath, dyspnea on exertion, lightheadedness, orthopnea or palpitations Gastro GI: No abdominal pain, change in bowel habits, constipation, cramping, diarrhea, nausea/dyspepsia or vomiting Genitourinary Male: No burning urination, painful urination, urinary incontinence, urinary frequency or blood in urine Musc Musculoskeletal: No abnormal gait, joint pain, back pain, limited range of motion, neck pain, numbness, stiffness, tingling or Arthritis Skin Skin: No dry skin, redness, lesions, itchy eyes, rash or wounds Neuro Neurology: No abnormal gait, abnormal hearing, abnormal speech, dizziness, weakness, frequent falls, headache(s), memory loss, numbness or tingling Psych Ps (more content not included)... Normal [facility] Internal Medicine Office Vis itonella 06-22-2024 Internal Medicine Office Visit [facility] [address] [place] [address] [place] [address] OFFICE VISIT Date of Service: 06/22/24 MR#: [id number] Acct: [id number] Name: EDDA BERNAL Rep #: [id number] : 1970 Provider: MICHELLE Hernandez Age/Sex: 53/M Location[place] [facility] [place] Status: Signed Intake Vital Signs 05/30/24 15:08 06/22/24 15:39 Height 5 ft 7 in 5 ft 7 in Weight: 176 lb 9.444 oz 178 lb 4 oz BMI 27.6 27.9 BP 112/82 H Blood Pressure Location Rt brachial Position Sitting Respiration 16 Pulse 71 Pulse Source Monitor Temp 97.7 F L Temp Source Temporal Pulse Oximetry (%) 94 Oxygen Delivery Method room air 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 Digital Account Executive Required: No Accompanied by: Self Is patient in pain?: No Allergies hydrocodone bitartrate (From Vicodin) Allergy (Verified 06/22/24 15:29) Other Penicillins Allergy (Verified 06/22/24 15:29) Anaphylaxis oxycodone Adverse Reaction (Verified 06/22/24 15:29) Other tramadol Adverse Reaction (Verified 06/22/24 15:29) Other Medications ???Medication ???Instructions ???Recorded ???Confirmed ???Type sertraline 25 mg tablet (Zoloft) 25 mg PO QDAY #30 tabs 06/22/24 Rx Have you fallen in the past year?: No Nurse's Note: crohns controlled mostly by diet does have history of migraines right sided head pain [facility] Medical History Hernia Crohn's disease Stroke Surgical History History of appendectomy Family History Father CVA (cerebral vascular accident) Other Colon cancer Heart disease Social History Smoking Status: Current every day smoker tobacco type: cigarettes alcohol intake: never substance use type: marijuana and other details: medical card what type of physical activity do you participate in: none Questionnaire HARSHIL-7 HARSHIL-7 Feeling nervous, anxious, or on edge: 2 = More than half the days Not being able to stop or control worryin = Several days Worrying too much about different things: 1 = Several days Trouble relaxin = Nearly every day Being so restless that it is hard to sit still: 3 = Nearly every day Becoming easily annoyed or irritable: 3 = Nearly every day Feeling afraid as if something awful might happen: 3 = Nearly every day Total HARSHIL-7 score (0-4 normal; 5-9 mild; 10-14 moderate; 15-21 severe): 16 Source: Developed by Drs. Jasbir Elkins, Rose Gallegos, Hardy Mandujano and colleagues, with an educational yadira from [employer]. HPI HPI Chief Complaint: establishing recent visit to [facility] Details: EDDA BERNAL, is a 53 M who presents to the office today for hospital f/u. Patient presented to the ED with a headache and signs of a stroke. They immediately contacted [facility] neurosurgery via telehealth. Patient had CT as well as CTA of the head/brain which were negative for acute strokes. Patient did have an MRI of the brain which was suggestive of a previous infarct. Patient was released from hospital told to follow-up with PCP. Patient used to see PCP at [facility] but is transferring here as he states he was always seeing somebody different every visit. Family history significant for his father having a stroke in his 50s. Patient denies ay history of HTN / blood pressure issues The only medications he has been on in the past were for his mental health / well being. Patient has a history of Crohns disease. Overall he states that he controls this through diet. He tries to avoid triggers such as red meats and other foods containing seeds. As long as he avoids these things then he does not get regular abdominal pains / cramping, diarrhea, or other abdominal complaints. Patient was previously placed on medication but states that he did not want to take any medication due to all the side effects that were listed. The marijuana that he uses he states does help his Crohn's as well. Patient is currently a pack a day smoker and has for 30 years He does not consume ETOH He does drink a large amt of coffee. He states that he has cut back and is currently only drinking 2 POTS per day. He used to drink 4 POTS per day or even more. He does not get regular exercise although he states that he does have a physically active job that he is on his feet a lot. Patient does have a history of migraines to where he has required injections (nerve block in the back of his head) to get rid of them. He never used to see Neurology Patient does use marijuana daily. He states that he smoked about 3 joints daily. Patient states that he was has had a lot of dental issues where his teeth decayed. He (more content not included)... Normal [facility] Lipid Profileon 05-31-2024 CHOL Normal 200 [facility] Comment on above: Order Comment: Robert nts: NPO at [place] prior to lipid panel Result Comment: Ryan ritchie via OM: Ordered Performed By: #### L 500.4497 ####[facility] [address] [place], [address] HDL Normal [facility] Comment on above: Order Comment: Robert nts: NPO at [place] prior to lipid panel Result Comment: Canc elled via OM: MD Ordered Performed By: #### L 500.4100 ####[facility] [address] [place], [address] LDL Normal 0-130 [facility] Comment on above: Order Comment: Comme nts: NPO at [place] prior to lipid panel Result Comment: Canc elled via OM: MD Ordered Performed By: #### L 500.4100 ####[facility] [address] [place], [address] TRIG Normal [facility] Comment on above: Order Comment: Comme nts: NPO at [place] prior to lipid panel Result Comment: Canc elled via OM: MD Ordered Performed By: #### L 500.4100 ####[facility] [address] [place], [address] VLDL Normal 5-40 [facility] Comment on above: Order Comment: Comme nts: NPO at [place] prior to lipid panel Result Comment: Canc elled via OM: MD Ordered Performed By: #### L 500.4100 ####[facility] [address] [place], [address] 12 Lead EKGon 05-30-2024 12 Lead EKG [facility] [address] [place] [address] 12 Lead EKG 05/30/24 1335 MR#: [id number] Acct: [id number] Name: EDDA BERNAL Rep #: [id number] : 1970 53 From: Guillermo Lugo MD Attending Dr: Dr. Jerome Blanco, DO Status : DIS AMBER Ordering Dr: James Cha MD Date: 05/30/24 Location: [facility] Sex: M C Admitted: 05/30/24 Test Reason : POSS STROKE Blood Pressure : */* mmHG Vent. Rate : 57 BPM Atrial Rate : 57 BPM P-R Int : 160 ms QRS Dur : 90 ms QT Int : 402 ms P-R-T Axes : 2 -33 6 degrees QTcB Int : 391 ms Sinus bradycardia Left axis deviation Abnormal ECG Confirmed by ROBBIE EGAN, MICHAEL ([id number]), slot editor KENISHA RAPHAEL ([id number]) on 06/01/2024 6:22:04 AM Referred By: Confirmed By: MICHAEL LUGO MD 06/01/24621 Date Guillermo Lugo MD CC: Dr. Jerome Blanco DO; Dr. Mackenzie Colunga MD; Dr. James Cha MD Signed Normal [facility] Alcohol, Blood (Medical)-Ser umon 05-30-2024 SERUM ETOH < 3.0 Normal [facility] Comment on above: Result Comment: The serum:whole blood ethanol ratio is approximately 1.14 and varies slightly with hematocrit. Medical Alcohol reference interval and critical value in non-tolerant individuals; 50 - 100 Impairment 100 Intoxication 100 - 250 Severe Poisoning 250 - 400 Deep/possible fatal coma Performed By: #### L 501.9520, L501.9985, L501.9100, L500.3400 ####[facility] [address] [place], [place], [id number] Basic Metabolic Profile (BMP )on 05-30-2024 BUN/CRE 16.4 RATIO Normal 10-20 [facility] Comment on above: Order Comment: 'TROP ' Serial specimen #1, #2 or #3: 1 Performed By: #### L 100.0100, L300.4310, L300.3900, L500.2500, L501.4020 #### [facility] [address] [place], [address] CA,Total 9.0 mg/dL Normal 8.5-10.1 [facility] Comment on above: Order Comment: 'TROP ' Serial specimen #1, #2 or #3: 1 Performed By: #### L 100.0100, L300.4310, L300.3900, L500.2500, L501.4020 #### [facility] [address] [place], [address] Chloride [Moles/Vol] 110 mmol/L High 98-107 [facility] Comment on above: Order Comment: 'TROP ' Serial specimen #1, #2 or #3: 1 Performed By: #### L 100.0100, L300.4310, L300.3900, L500.2500, L501.4020 #### [facility] [address] [place], [address] CO2 [Moles/Vol] 28.0 mmol/L Normal 21.0-32.0 [facility] Comment on above: Order Comment: 'TROP ' Serial specimen #1, #2 or #3: 1 Performed By: #### L 100.0100, L300.4310, L300.3900, L500.2500, L501.4020 #### [facility] [address] [place], [address] Creatinine [Mass/Vol] 0.85 mg/dL Normal 0.70-1.30 [facility] Comment on above: Order Comment: 'TROP ' Serial specimen #1, #2 or #3: 1 Result Comment: The validity of the calculated GFR GFRAA in patients over 70 years has not been determined. Clinical correlation is essential. Performed By: #### L 100.0100, L300.4310, L300.3900, L500.2500, L501.4020 #### [facility] [address] [place], [address] ECRCL 102.82 ml/min Normal [facility] Comment on above: Order Comment: 'TROP ' Serial specimen #1, #2 or #3: 1 Performed By: #### L 100.0100, L300.4310, L300.3900, L500.2500, L501.4020 #### [facility] [address] [place], [address] EST GFR - AA 121 mL/min Normal >60 [facility] Comment on above: Order Comment: 'TROP ' Serial specimen #1, #2 or #3: 1 Result Comment: Afri can Omani GFR Calc Performed By: #### L 100.0100, L300.4310, L300.3900, L500.2500, L501.4020 #### [facility] [address] [place], [address] GAP 2 Low 5-15 [facility] Comment on above: Order Comment: 'TROP ' Serial specimen #1, #2 or #3: 1 Performed By: #### L 100.0100, L300.4310, L300.3900, L500.2500, L501.4020 #### [facility] [address] [place], [address] GFR/1.73 sq M.predicted among non-blacks MDRD (S/P/Bld) [Vol rate/Area] 100 mL/min/{1.73_m2} Normal >60 [facility] Comment on above: Order Comment: 'TROP ' Serial specimen #1, #2 or #3: 1 Result Comment: Non- GFR Calc Performed By: #### L 100.0100, L300.4310, L300.3900, L500.2500, L501.4020 #### [facility] [address] [place], [address] Glucose [Mass/Vol] 99 mg/dL Normal 74-106 [facility] Comment on above: Order Comment: 'TROP ' Serial specimen #1, #2 or #3: 1 Performed By: #### L 100.0100, L300.4310, L300.3900, L500.2500, L501.4020 #### [facility] [address] [place], [address] Potassium [Moles/Vol] 4.7 mmol/L Normal 3.5-5.1 [facility] Comment on above: Order Comment: 'TROP ' Serial specimen #1, #2 or #3: 1 Result Comment: Mode rate Hemolysis, Result may be falsely increased. Performed By: #### L 100.0100, L300.4310, L300.3900, L500.2500, L501.4020 #### [facility] [address] [place], [address] Sodium [Moles/Vol] 140 mmol/L Normal 136-145 [facility] Comment on above: Order Comment: 'TROP ' Serial specimen #1, #2 or #3: 1 Performed By: #### L 100.0100, L300.4310, L300.3900, L500.2500, L501.4020 #### [facility] [address] [place], [address] Urea nitrogen [Mass/Vol] 14 mg/dL Normal 7-18 [facility] Comment on above: Order Comment: 'TROP ' Serial specimen #1, #2 or #3: 1 Performed By: #### L 100.0100, L300.4310, L300.3900, L500.2500, L501.4020 #### [facility] [address] [place], [address] Brain without Contraston Brain without Contrast [facility] Imaging Services [address] [place] [address] Brain without Contrast MR#: [id number] Acct: [id number] Name: EDDA BERNAL Rep #: [id number] : 1970 M 53 From: Adryan Izaguirre MD PCP: Dr. Mackenzie Colunga MD Status: ADM AMBER Study: Brain without Contrast Date of Exam: 05/30/24 Exam# [id number] Ordering Dr: Jerome Blanco DO -[id number] STUDY: MRI BRAIN WITHOUT CONTRAST REASON FOR EXAM: Male, 53 years old. eval for CVA TECHNIQUE: Standardized multiplanar fat and water weighted pulse sequences were obtained. COMPARISON: CT of the brain May 30, 2024. FINDINGS: Normal size of the ventricles and extra-axial spaces for the patient''s age. Normal white matter tracts of the supratentorial brain. Probable old lacunar infarct in right basal ganglia Normal thalami. There is no extra-axial fluid accumulation. Normal flow voids within the major intracranial circulation suggesting patency by spin echo criteria. Normal sella turcica, pituitary gland, infundibular stalk, optic chiasm and hypothalamus. Normal tectal plate and pineal gland. Normal midbrain, anne-marie and medulla. Normal cerebellum. Normal basal cisterns. Normal bilateral temporal bones. Normal bilateral internal auditory canals. No demonstrated orbital abnormality, within the constraints of a routine brain study. Normal visualized paranasal sinuses. Normal calvarium and skull base. Normal visualized soft tissue structures. Normal visualized upper cervical spine. MRI/Brain without Contrast IMPRESSION: Probable old lacunar infarct of the right basal ganglia otherwise normal study Electronically Signed: Adryan Izaguirre MD at 16:12 EST Reading Location ID and State: [facility] / [place] Tel , Service support , CC: Dr. Jerome Blanco DO; Dr. Mackenzie Colunga MD Color Strainer: Signed Normal [facility] CBC W/Diff, Automatedon 05-05 Absolute Lymph 3.05 X10 3/uL Normal 0.83-4.51 [facility] Comment on above: Performed By: #### L 100.0100, L300.4310, L300.3900, L500.2500, L501.4020 #### [facility] [address] [place], [address] Absolute Neut 5.3 X10 3/uL Normal 2.0-7.7 [facility] Comment on above: Performed By: #### L 100.0100, L300.4310, L300.3900, L500.2500, L501.4020 #### [facility] [address] [place], [address] Basophils/100 WBC (Bld) 0.9 % Normal 0-1 [facility] Comment on above: Performed By: #### L 100.0100, L300.4310, L300.3900, L500.2500, L501.4020 #### [facility] [address] [place], [address] Eosinophils/100 WBC (Bld) 2.2 % Normal 0-5 [facility] Comment on above: Performed By: #### L 100.0100, L300.4310, L300.3900, L500.2500, L501.4020 #### [facility] [address] [place], [address] Erythrocyte distribution width (RBC) [Ratio] 13.5 % Normal 11.6-14.6 [facility] Comment on above: Performed By: #### L 100.0100, L300.4310, L300.3900, L500.2500, L501.4020 #### [facility] [address] [place], [address] Hematocrit (Bld) [Volume fraction] 45.1 % Normal 40-54 [facility] Comment on above: Performed By: #### L 100.0100, L300.4310, L300.3900, L500.2500, L501.4020 #### [facility] [address] [place], [address] Hemoglobin (Bld) [Mass/Vol] 15.2 g/dL Normal 13.0-16.5 [facility] Comment on above: Performed By: #### L 100.0100, L300.4310, L300.3900, L500.2500, L501.4020 #### [facility] [address] [place], [address] IG% 0.500 Normal 0.0-0.9 [facility] Comment on above: Result Comment: IG% - Immature Granulocytes (promyelocytes, myelocytes and metamyelocytes) > 1% indicates that a LEFT SHIFT is Present. Performed By: #### L 100.0100, L300.4310, L300.3900, L500.2500, L501.4020 #### [facility] [address] [place], [address] Lymphocytes/100 WBC (Bld) 32.4 % Normal 19-41 [facility] Comment on above: Performed By: #### L 100.0100, L300.4310, L300.3900, L500.2500, L501.4020 #### [facility] [address] [place], [address] MCH (RBC) [Entitic mass] 30.5 pg Normal 27.0-32.0 [facility] Comment on above: Performed By: #### L 100.0100, L300.4310, L300.3900, L500.2500, L501.4020 #### [facility] [address] [place], [address] MCHC (RBC) [Mass/Vol] 33.7 g/dL Normal 32-36 [facility] Comment on above: Performed By: #### L 100.0100, L300.4310, L300.3900, L500.2500, L501.4020 #### [facility] [address] [place], [address] MCV (RBC) [Entitic vol] 90.6 fL Normal 80-94 [facility] Comment on above: Performed By: #### L 100.0100, L300.4310, L300.3900, L500.2500, L501.4020 #### [facility] [address] [place], [address] Monocytes/100 WBC (Bld) 8.1 % Normal 0-10 [facility] Comment on above: Performed By: #### L 100.0100, L300.4310, L300.3900, L500.2500, L501.4020 #### [facility] [address] [place], [address] Neutrophils/100 WBC (Bld) 55.9 % Normal 47-70 [facility] Comment on above: Performed By: #### L 100.0100, L300.4310, L300.3900, L500.2500, L501.4020 #### [facility] [address] [place], [address] Nucleated RBC (Bld) [#/Vol] 0 10*3/uL Normal 0-5 [facility] Comment on above: Performed By: #### L 100.0100, L300.4310, L300.3900, L500.2500, L501.4020 #### [facility] [address] [place], [address] Platelet mean volume (Bld) [Entitic vol] 8.8 fL Normal 6.2-12.0 [facility] Comment on above: Performed By: #### L 100.0100, L300.4310, L300.3900, L500.2500, L501.4020 #### [facility] [address] [place], [address] Platelets (Bld) [#/Vol] 336 10*3/uL Normal 150-450 [facility] Comment on above: Performed By: #### L 100.0100, L300.4310, L300.3900, L500.2500, L501.4020 #### [facility] [address] [place], [address] RBC (Bld) [#/Vol] 4.98 10*6/uL Normal 4.6-6.2 [facility] [place] [facility] Comment on above: Performed By: #### L 100.0100, L300.4310, L300.3900, L500.2500, L501.4020 #### [facility] [address] [place], [address] RDW SD 45.1 fl High 35.1-43.9 [facility] Comment on above: Performed By: #### L 100.0100, L300.4310, L300.3900, L500.2500, L501.4020 #### [facility] [address] [place], [address] WBC (Bld) [#/Vol] 9.4 10*3/uL Normal 4.4-11.0 [facility] Comment on above: Performed By: #### L 100.0100, L300.4310, L300.3900, L500.2500, L501.4020 #### [facility] [address] [facility] [place], [address] Chest 1 Viewon 05-30-2024 Chest 1 View [facility] Imaging Services [address] [place] [address] Chest 1 View MR#: [id number] Acct: [id number] Name: EDDA BERNAL Rep #: [id number] : 1970 M 53 From: Blanco lorenz MD PCP: Dr. Mackenzie Colunga MD Status: ADM AMBER Study: Chest 1 View Date of Exam: 05/30/24 Exam# [id number] Ordering Dr: James Cha MD -[id number] STUDY: X-RAY CHEST REASON FOR EXAM: Male, 53 years old. Neuro deficit, acute, stroke suspected -- Right-sided weakness, inattention right, slurred s TECHNIQUE: Two AP portable view of the chest. COMPARISON: None. FINDINGS: No demonstrated consolidation. The lungs are clear and expanded. There is no demonstrated pleural abnormality. Normal size heart. Normal mediastinum and liseth. Normal visualized pulmonary arteries. There is atherosclerotic calcification of the aortic arch with tortuosity. There are diffuse degenerative changes of the visualized thoracic spine. Normal visualized ribs, clavicles, and shoulders. There is no demonstrated abnormality of the visualized soft tissue structures of the upper abdomen. RAD/Chest 1 View IMPRESSION: Degenerative changes, as described above. No demonstrated acute cardiopulmonary process. Electronically Signed: Blanco Cano MD at 14:24 EST Reading Location ID and State: [address] [place] [address] , Service support , CC: Dr. Mackenzie Colunga MD; Dr. James Cha MD Color Strainer: Signed Normal [facility] Discharge Instructionon 05-05 Discharge Instruction [facility] Medical Records Department [address] [place] [address] Instructions for Home/Discharge Instructions 05/30/24 1807 MR#: [id number] Acct: [id number] Name: EDDA BERNAL Rep #: [id number] : 1970 53 From: Jerome Blanco DO PCP: Dr. Mackenzie Colunga MD Status:ADM AMBER Discharge Instructions Diet Discharge Diet: No restrictions DC O2, CPAP, BIPAP needs Home O2 Discharge instructions: No Dressing / Incision Discharge Activity: No Restrictions Follow Up Care Test Results: Test results from this visit will be discussed in further detail at your follow-up appointment, if applicable. Discharge Plan Admission Admit Date/Time: 05/30/24 13:38 Primary Reason for Your Visit: Strokelike symptoms Attending Provider: Jerome Blanco Primary Care Provider: Mackenzie Colunga Consulting Providers: Wang Caldera; Kenny Carmen; Gissell Shook; Juliet Estrada; Pat Lopez; Jaun Desai; Sharon Vazquez; Justice Acosta; Jose Luis Wells; Jermain Cash; Nadeen Tirado; Byron Walker; Kerline Quinones; Jerry Lee; Araceli Davis; Cesar Reveles; Rito Parker; Gaetano Gibbons; Hellen Oakes; Linda Andrade Discharge Orders/Prescriptions Prescriptions: No Action NK Referrals / Follow Up: Mackenzie Colunga MD [Primary Care Provider] - Disposition Disposition (needs filled in before D/C Order can be placed): Home, Self Care 05/30/24 1808 [facility] CC: Juliet Estrada; Kerline Quinones; Cesar Reveles; Pat Lopez MD; Gissell Shook MD; Wang Caldera MD; Dr. Kenny Carmen MD; Dr. Jaun Desai MD; Dr. Sharon Vazquez MD; Dr. Jose Luis Wells MD; Dr. Justice Acosta MD; Dr. Jermain Cash MD; Dr. Mackenzie Colunga MD; Dr. Byron Walker DO; Dr. Araceli Davis MD; Dr. Jerry Lee MD; Dr. Rito Parker MD; Dr. Gaetano Gibbons MD; Dr. Hellen Oakes MD; Nadeen Tirado DO; Linda Andrade MD Signed Normal [facility] Emergency Department Summary on 05-30-2024 Emergency Department Summary [facility] Medical Records Department [address] [place] [address] Emergency Department Summary 05/30/24 MR#: [id number] Acct: [id number] Name: EDDA BERNAL Rep #: [id number] : 1970 53 From: James Cha MD PCP: Dr. Mackenzie Colunga MD Status:REG ER Location: ED HPI History of Present Illness Chief Complaint: General Illness Informant: patient and spouse/S.O. Onset/Context/Timing Onset: Today Quality and Location: Positive for Left Facial Droop, Left Face Parasthesia, Right Arm Weakness, Right Leg Weakness and Slurred Speech Current Severity: Moderate Maximum Severity: Moderate Worsened by: Nothing Relieved by: Nothing Associated Symptoms Associated Symptoms: Positive for Headache Narrative Narrative: Patient is a 53-year-old male. He replied 63 years of age when asked age. He was awakened sleep with headache. He had symptoms at that time. He has history of migraines. He has never had a ocul ar migraine or migraine with neurologic deficit. He arrived by ambulance. I was asked to see him by nursing staff because of concern for stroke. Prior similar symptoms: No Recent Illness/Hospitalization: Yes PFSH PFSH Home Medications ???Medication ???Instructions ???Recorded ???Last Taken ???Type NK 05/30/24 Unknown History Allergy/AdvReac Type Severity Reaction Status Date / Time hydrocodone bitartrate (From Allergy Other Verified 03/14/17 12:40 Vicodin) Penicillins Allergy Anaphylaxis Verified 03/14/17 12:40 oxycodone AdvReac Other Verified 03/18/17 12:52 tramadol AdvReac Other Verified 03/18/17 12:52 Social History Smoking Status: Current every day smoker ROS ROS ED Constitutional Constitutional ED: Denies chills, fever(s) or subjective Eyes Eyes: Denies blurry vision or change in vision ENT ENT ED: Denies ear pain or rhinorrhea Cardiovascular Cardiovascular: Denies chest pain, palpitations or racing heartbeat Respiratory/Chest Respiratory/Chest: Denies cough, dyspnea or dyspnea on exertion Gastrointestinal Gastrointestinal: Denies abdominal pain, diarrhea or vomiting Musculoskeletal Musculoskeletal: Denies arthralgias, back pain, myalgias or neck pain Integumentary Denies rash Neurologic Neurologic: Reports headache(s), paresthesias and weakness EXAM Physical Exam Const Vital Signs: 05/30/24 12:43 05/30/24 12:50 05/30/24 12:53 Temperature 99.8 F H Temperature Source Oral Pulse Rate 72 78 Respiratory Rate 18 18 Respiratory Effort Blood Pressure 159/104 H 159/101 H Blood Pressure Mean 122 120 Pulse Ox 98 98 98 Oxygen Delivery Method Room Air Room Air Room Air 05/30/24 12:58 05/30/24 13:20 05/30/24 13:30 Temperature Temperature Source Pulse Rate 55 L 66 Respiratory Rate 18 17 Respiratory Effort Normal Blood Pressure 155/93 H 140/97 H Blood Pressure Mean 113 111 Pulse Ox 97 98 Oxygen Delivery Method Room Air Room Air Positive well nourished and well developed General Appearance ED: well developed and NAD HEENT Reports moist mucous membranes atraumatic Nose: other Other Details: Patient has poor dentition. Eyes PERRL and EOMs intact bilaterally Eyes Narrative: There is no visual field cut. General Eye ED: Negative for pale conjunctiva or scleral icterus Resp normal respiratory effort and clear to auscultation bilaterally Cardio no murmurs Rate: regular rate Heart Sounds: S1 normal GI normal to inspection, nondistended, normoactive bowel sounds, soft to palpation, non-tender and no masses Extremity normal to inspection Neuro oriented x3, No CN's II-XII intact bilaterally and No no sensory deficits noted [place] Coma Scale: document GCS findings Spontaneous Obeys Commands Oriented 15 Sensorium / Orientation: Negative for alert Speech: Negative for speech normal Sensory Exam: No sensory level loss detected Motor Exam: Negative for strength 5/5 throughout Skin no wounds Rashes: no rashes NIHSS NIHSS Initial: 1a Level of Consciousness: 1 1b LOC Questions (Score 2 if aphasic/stupor): 1 1c LOC Commands (Only score 1st attempt): 0 2 Best Gaze (If aphasic, use reflexive mvmts.): 0 3 Visual: 0 4 Facial Palsy: 1 5 Motor Arm Right (UN = amputation/fusion): 1 5 Motor Arm Left: 0 6 Motor Leg Right: 1 6 Motor Leg Left: 0 7 Limb ataxia (Only + if out of proportion): 1 (Right upper extremity) 8 Sensory (Aphasia/stupor=0 or 1, coma=2): 1 (Altered sensation left side of the face) 9 Best Language: 0 10 Dysarthria (mute, coma=2, intubated=UN): 1 11 Extinction and Inattention (only scored if +): 1 Total Score: 9 MDM MDM MDM Narrative Medical decision making narrative: Patient presents with strokelike symptoms. This may be atypical p (more content not included)... Normal [facility] H AND P Exam - Hospitaliston 05-30-2024 H&P Exam - Hospitalist [facility] Medical Records Department [address] [place] [address] H P Exam - Hospitalist 05/30/24 1337 MR#: [id number] Acct: [id number] Name: EDDA BERNAL Rep #: [id number] : 1970 53 From: Jerome Blanco DO PCP: Dr. Mackenzie Colunga MD Status:ADM AMBER Location: [place] [address] HPI - General General Date of Admission: 05/30/24 Date of Service: 05/30/24 Chief Complaint: Strokelike symptoms HPI Narrative EDDA BERNAL, is a 53 M who presented to [facility] ED on 05/30/2024 with strokelike symptoms. Patient brought into hospital by EMS. Has history of migraines and woke up this morning with a significant headache, but noticed that he had a left facial droop and slurred speech. He also apparently had some mild right leg and right arm weakness as well. On arrival to the ED his NIHSS score was 9. He was outside the window for TNK. CT brain was negative. CTA head/neck was also negative. On reevaluation by ED physician patient remained somewhat confused and stated his age was 63 when he is 53 years old. notes that he also seemed slightly different than his normal, though she notes his facial droop and right-sided extremity weakness appeared improved. Given concern for stroke, hospitalist was contacted for admission. I saw the patient at bedside in the ED, was present. Patient was laying back comfortably in bed and in no acute distress. He was hemodynamically stable on room air. Patient was alert and oriented x 3 for me. However, he was very combative verbally with me and stated multiple times that he did not want to be hospitalized overnight and is strongly against taking any medications. He has a history of Crohn's disease and is on medical marijuana for this. He was very concerned about the cost of the hospital stay and testing for possible stroke and argumentative with me during our encounter. He was agreeable to being admitted with plan for MRI later this afternoon and plan to discuss further course of action after that resulted. He did seem to have occasional slurring of speech. Denied any other drug use aside from marijuana. Denied any alcohol use. Did report a mild right-sided headache currently. Otherwise denied any other concerns. PFSH Home Medications ???Medication ???Instructions ???Recorded ???Last Taken ???Type NK 05/30/24 Unknown History Allergy/AdvReac Type Severity Reaction Status Date / Time hydrocodone bitartrate (From Allergy Other Verified 03/14/17 12:40 Vicodin) Penicillins Allergy Anaphylaxis Verified 03/14/17 12:40 oxycodone AdvReac Other Verified 03/18/17 12:52 tramadol AdvReac Other Verified 03/18/17 12:52 Family History (Updated 05/30/24 @ 15:07 by Dyan Brown) Father CVA (cerebral vascular accident) Surgical History (Updated 05/30/24 @ 15:07 by Dyan Brown) History of appendectomy Social History Smoking Status: Current every day smoker tobacco type: cigarettes ROS Constitutional Constitutional: Denies chills, fatigue, fever(s) or weakness Eyes Eyes: Denies blurry vision, change in vision or double vision ENT HEENT: Denies nasal congestion or nasal discharge Cardiovascular Cardiovascular: Denies chest pain or dyspnea on exertion Respiratory/Chest Respiratory/Chest: Denies cough or shortness of breath at rest Gastrointestinal Gastrointestinal: Denies abdominal pain Musculoskeletal Musculoskeletal: Denies arthralgias, back pain or myalgias Neurologic Neurologic: Reports abnormal speech, confusion and headache(s); Denies dizziness, focal weakness, numbness or paresthesias Vital Signs Vital Signs Vital Signs: 05/30/24 12:43 05/30/24 12:50 05/30/24 12:53 Temperature 99.8 F H Temperature Source Oral Pulse Rate 72 78 Respiratory Rate 18 18 Respiratory Effort Blood Pressure 159/104 H 159/101 H Blood Pressure Mean 122 120 Pulse Ox 98 98 98 Oxygen Delivery Method Room Air Room Air Room Air 05/30/24 12:58 05/30/24 13:20 05/30/24 13:30 Temperature Temperature Source Pulse Rate 55 L 66 Respiratory Rate 18 17 Respiratory Effort Normal Blood Pressure 155/93 H 140/97 H Blood Pressure Mean 113 111 Pulse Ox 97 98 Oxygen Delivery Method Room Air Room Air Weight Weight: 80.2 kg Body Mass Index (BMI) 26.1 Physical Exam Const alert, oriented x3 and average body habitus Constitutional Narrative: Middle-age male, alert and oriented x 3 but occasional mild slurred speech noted, argumentative with me during encounter, otherwise laying back comfortably in bed and no acute distress. General Appearance: comfortable HEENT normocephalic, head/scalp atraumatic, hearing grossly normal bilaterally, nasal mucous membranes and t (more content not included)... Normal [facility] Hemoglobin A1con 05-30-2024 HbA1c (Bld) [Mass fraction] 6.0 % High 3.8-5.6 [facility] Comment on above: Result Comment: Norm al < 5.7 % Prediabetic 5.7 - 6.4 % Diabetic >or= 6.5 % Please note range changes. Performed By: #### L 501.9520, L501.9985, L501.9100, L500.3400 ####[facility] [address] [place], [address] L501.4020on 05-30-2024 TROPONIN-I HS 5 pg/mL Normal 3.0-78.0 [facility] Comment on above: Order Comment: 'TROP ' Serial specimen #1, #2 or #3: 1 Result Comment: Plea se Note: New Test Units and Gender Specific Reference Ranges. For more information see Policy Stat Procedure Exline High Sensitivity Troponin (TNIH) and attachments. Performed By: #### L 100.0100, L300.4310, L300.3900, L500.2500, L501.4020 #### [facility] [address] [place], [address] Lipid Profileon 05-30-2024 Cholesterol [Mass/Vol] 133 mg/dL Normal 200 [facility] Comment on above: Order Comment: ADD O N PER ZAIRE NURSE Result Comment: <200 mg/dL Desirable 200-240 mg/dL Borderline >240 mg/dL High Risk Performed By: #### L 500.4100 ####[facility] [address] [place], [address] Cholesterol in HDL [Mass/Vol] 31 mg/dL Low [facility] Comment on above: Order Comment: ADD O N PER ZAIRE NURSE Result Comment: The drugs N-Acetylcysteine and Metamizole may falsely depress this assay. Reference Range HDL <40 mg/dL Low HDL Cholesterol HDL >or= 60 mg/dL High HDL Cholesterol Performed By: #### L 500.4100 ####[facility] [address] [place], [address] Cholesterol in LDL [Mass/Vol] 72 mg/dL Normal 0-130 [facility] Comment on above: Order Comment: ADD O N PER ZAIRE NURSE Performed By: #### L 500.4100 ####[facility] [address] [place], [address] Cholesterol in VLDL [Mass/Vol] 30 mg/dL Normal 5-40 [facility] Comment on above: Order Comment: ADD O N PER ZAIRE NURSE Performed By: #### L 500.4100 ####[facility] [address] [place], [address] Triglyceride [Mass/Vol] 148 mg/dL Normal [facility] Comment on above: Order Comment: ADD O N PER ZAIRE NURSE Result Comment: The drugs N-Acetylcysteine and Metamizole may falsely depress this assay. Serum Triglycerides Reference Interval Normal <150 mg/dL Borderline high 150 - 199 mg/dL High 200 - 499 mg/dL Very High > or = 500 mg/dL Performed By: #### L 500.4100 ####[facility] [address] [place], [address] Liver Profileon 05-30-2024 Albumin [Mass/Vol] 3.6 g/dL Normal 3.2-5.0 [facility] Comment on above: Performed By: #### L 501.9520, L501.9985, L501.9100, L500.3400 ####[facility] [address] [place], [address] ALK P 69 U/L Normal 45-117 [facility] Comment on above: Performed By: #### L 501.9520, L501.9985, L501.9100, L500.3400 ####[facility] [address] [place], [address] ALT [Catalytic activity/Vol] 19 U/L Normal 16-61 [facility] Comment on above: Performed By: #### L 501.9520, L501.9985, L501.9100, L500.3400 ####[facility] [address] [place], [address] AST [Catalytic activity/Vol] 16 U/L Normal 15-37 [facility] Comment on above: Result Comment: Slig ht Hemolysis, Result may be falsely increased. Performed By: #### L 501.9520, L501.9985, L501.9100, L500.3400 ####[facility] [address] [place], [address] Bilirubin [Mass/Vol] 0.20 mg/dL Normal 0.20-1.00 [facility] Comment on above: Result Comment: For patients on eltrombopag therapy, use of Dimension Exline TBIL is not recommended. Performed By: #### L 501.9520, L501.9985, L501.9100, L500.3400 ####[facility] [address] [place], [address] D BILI < 0.05 Normal 0.00-0.30 [facility] Comment on above: Performed By: #### L 501.9520, L501.9985, L501.9100, L500.3400 ####[facility] [address] [place], [address] Globulin (S) [Mass/Vol] 3.5 g/dL Normal 2.2-4.2 [facility] Comment on above: Performed By: #### L 501.9520, L501.9985, L501.9100, L500.3400 ####[facility] [address] [place], [address] T PROT 7.1 g/dL Normal 6.4-8.2 [facility] Comment on above: Performed By: #### L 501.9520, L501.9985, L501.9100, L500.3400 ####[facility] [address] [place], [address] Partial Thromboplast Timeon 05-30-2024 aPTT Coag (Bld) [Time] 30.4 s Normal 24.1-36.2 [facility] Comment on above: Performed By: #### L 100.0100, L300.4310, L300.3900, L500.2500, L501.4020 #### [facility] [address] [place], [address] Prothrombin Time w/INRon INR Coag (PPP) [Relative time] 1.0 {INR} Normal [facility] Comment on above: Performed By: #### L 100.0100, L300.4310, L300.3900, L500.2500, L501.4020 #### [facility] [address] [place], [address] PT Coag (PPP) [Time] 13.9 s Normal 11.7-14.9 [facility] Comment on above: Performed By: #### L 100.0100, L300.4310, L300.3900, L500.2500, L501.4020 #### [facility] [address] [place], [address] STROKE Brain/Head without Co nton 05-30-2024 STROKE Brain/Head without Cont [facility] Imaging Services [address] [place] [address] STROKE Brain/Head without Cont MR#: [id number] Acct: [id number] Name: EDDA BERNAL Rep #: [id number] : 1970 M 53 From: Blanco lorenz MD PCP: Dr. Mackenzie Colunga MD Status: REG ER Study: STROKE Brain/Head without Cont Date of Exam: 0 05/30/24 Exam# [id number] Ordering Dr: James Cha MD ADDENDUM by Dr. Blanco Cano MD on 05/30/24 at 1311 -[id number] STUDY: STROKE PROTOCOL CT BRAIN WITHOUT CONTRAST REASON FOR EXAM: Male, 53 years old. Neuro deficit, acute, stroke suspected RADIATION DOSAGE (If Supplied By Facility): CTDIvol = ( ) mGy, DLP = ( ) mGycm TECHNIQUE: Transaxial CT imaging of the brain was performed without administration of intravenous contrast material. Individualized dose optimization techniques were used for this CT. COMPARISON: Head CT dated December 22, 2016 FINDINGS: Major intracranial venous sinuses: No abnormal hyperdensity MCA and basilar arteries assessment: No abnormal hyperdensity No visualized extra-axial fluid collection or subdural hemorrhage. Normal soft tissue structures. Normal calvarium. Normal size ventricles and extra-axial spaces for the patient''s age. Normal white matter tracts of the cerebral hemispheres. Normal basal ganglia and thalami. Normal brainstem. Normal cerebellum. There is no demonstrated sulcal effacement or parenchymal edema. There is no intracranial hemorrhage. There are no findings of an acute ischemic infarction. Normal visualized paranasal sinuses. ASPECTS Score for Acute Strokes: 10 05/30/24 1311 Date cc: Dr. Mackenzie Colunga MD; Dr. James Cha MD * Signed ADDENDUM by Dr. Blanco Cano MD on 05/30/[address]/STROKE Brain/Head without Cont IMPRESSION: 1. Normal unenhanced CT scan of the brain. 2. Concern for stroke/positive symptomatology should be further evaluated with CT brain perfusion/CTA or MRI of the brain for further assessment. N.B. : The above Results were Read Back by Blanco Cano MD to James Cha MD, and understanding confirmed on 05/30/2024 13:10:22 (ET). Electronically Signed: Blanco Cano MD at 13:11 EST , 05/30/24 1318 Date cc: Dr. Mackenzie Colunga MD; Dr. James Cha MD * Signed -[id number] STUDY: STROKE PROTOCOL CT BRAIN WITHOUT CONTRAST REASON FOR EXAM: Male, 53 years old. Neuro deficit, acute, stroke suspected RADIATION DOSAGE (If Supplied By Facility): CTDIvol = ( ) mGy, DLP = ( ) mGycm TECHNIQUE: Transaxial CT imaging of the brain was performed without administration of intravenous contrast material. Individualized dose optimization techniques were used for this CT. COMPARISON: Head CT dated December 22, 2016 FINDINGS: Major intracranial venous sinuses: No abnormal hyperdensity MCA and basilar arteries assessment: No abnormal hyperdensity No visualized extra-axial fluid collection or subdural hemorrhage. Normal soft tissue structures. Normal calvarium. Normal size ventricles and extra-axial spaces for the patient''s age. Normal white matter tracts of the cerebral hemispheres. Normal basal ganglia and thalami. Normal brainstem. Normal cerebellum. There is no demonstrated sulcal effacement or parenchymal edema. There is no intracranial hemorrhage. There are no findings of an acute ischemic infarction. Normal visualized paranasal sinuses. ASPECTS Score for Acute Strokes: 10 CT/STROKE Brain/Head without Cont IMPRESSION: 1. Normal unenhanced CT scan of the brain. 2. Concern for stroke/positive symptomatology should be further evaluated with CT brain perfusion/CTA or MRI of the brain for further assessment. N.B. : The above Results were Read Back by Blanco Cano MD to James Cha MD, and understanding confirmed on 05/30/2024 13:10:22 (ET). Electronically Signed: Blanco Cano MD at 13:11 EST Reading Location ID and State: [facility] / [place] , Service support , CC: Dr. Mackenzie Colunga MD; Dr. James Cha MD Color Strainer: Signed Normal [facility] STROKE CTA Head AND Neck W/C onon 05-30-2024 STROKE CTA Head AND Neck W/Con [facility] Imaging Services [address] [place], [place] [address]Abhijit [place], [place] [id number] STROKE CTA Head AND Neck W/Con MR#: [id number] Acct: [id number] Name: EDDA BERNAL Rep #: [id number] : 1970 M 53 From: Blanco lorenz MD PCP: Dr. Mackenzie Colunga MD Status: REG ER Study: STROKE CTA Head AND Neck W/Con Date of Exam: 0 05/30/24 Exam# [id number] Ordering Dr: James Cha MD ADDENDUM by Dr. Blanco Cano MD on 05/30/24 at 1324 [id number] STUDY: CTA HEAD AND NECK WITH CONTRAST REASON FOR EXAM: Male, 53 years old. Neuro deficit, acute, stroke suspected RADIATION DOSAGE (If Supplied By Facility): CTDIvol = ( 18.15 ) mGy, DLP = ( 732.61 ) mGycm TECHNIQUE: CT angiography was performed with a multi-detector CT scanner. Data acquisition was obtained from the skull base through the vertex following intravenous administration of IV 100mL Isovue-370. MIP images were reconstructed from the axial data set. Post-processing of the angiographic images was performed, with multiplanar reformation and 3D reconstruction. Individualized dose optimization techniques were used for this CT. COMPARISON: Head CT dated May 30, 2024 FINDINGS: Normal bilateral petrous carotid arteries. There is calcified plaque formation of the right cavernous carotid artery, without a cross-sectional luminal stenosis. Normal left cavernous carotid artery with a normal supraclinoid bifurcation. Normal right A1 segments of the anterior cerebral artery. Normal left A1 segments of the anterior cerebral artery. Normal intact anterior communicating artery (ACOM). Normal bilateral A2 segments of the anterior cerebral arteries. Normal right M1 and M2 segments of the middle cerebral arteries, with a normal M1 bifurcation. Normal left M1 and M2 segments of the middle cerebral arteries, with a normal M1 bifurcation. Normal right posterior communicating artery (PCOM). There is non-visualization of the left posterior communicating artery (PCOM). Normal bilateral vertebral arteries. Normal basilar artery with a normal basilar bifurcation. The visualized bilateral superior cerebellar (SCA) arteries are normal. Normal bilateral P1, P2 and visualized P3 segments of the posterior cerebral arteries. There is no demonstrated aneurysm of the [place]. No demonstrated thrombus or occlusion or hemodynamically significant stenosis of the major intracranial arteries. Fully patent and normal enhancement of the major intracranial venous sinuses, with no evidence of venous sinus thrombosis or occlusion. NECK CTA: AORTIC ARCH: Normal visualized aortic arch. Normal origins of the brachiocephalic, left common carotid, and left subclavian arteries. RIGHT CAROTID ARTERIES: Normal right common carotid artery (CCA). Normal right common carotid bulb. Normal origin of the right internal carotid (ICA) artery without a hemodynamically significant stenosis. Normal visualized cervical portion of the right internal carotid artery. Normal origin of the right external carotid artery (ECA). LEFT CAROTID ARTERIES: Normal left common carotid artery (CCA). Normal left common carotid bulb. Normal origin of the left internal carotid (ICA) artery without a hemodynamically significant stenosis. There is atherosclerotic tortuous elongation of the cervical portion of the left internal carotid artery. Normal origin of the left external carotid artery (ECA). VERTEBRAL ARTERIES: Normal bilateral vertebral arteries. No demonstrated vertebral artery thrombus or occlusion or dissection. 05/30/24 1324 Date cc: Dr. Mackenzie Colunga MD; Dr. James Cha MD * Signed ADDENDUM by Dr. Blanco Cano MD on 05/30/[address]/STROKE CTA Head AND Neck W/Con IMPRESSION: No demonstrated large vessel occlusion (LVO) 1. Head CTA: There is no demonstrated aneurysm of the [place]. No demonstrated thrombus or occlusion or hemodynamically significant stenosis of the major intracranial arteries. Fully patent and normal enhancement of the major intracranial venous sinuses, with no evidence of venous sinus thrombosis or occlusion. 2. Neck CTA: There bilateral cervical carotid and vertebral arteries. 3. CT Brain Perfusion and/or MRI of the brain can be obtained for small infarcts and perforating vessel disease not detected by CT or CTA. N.B. : The above Results were Read Back by Blanco Cano MD to James Cha MD, and understanding confirmed on 05/30/2024 13:22:56 (ET). Electronically Signed: Blanco Cano MD at 13:24 EST Reading Location ID and State: [facility] / [place] , Service support , 05/30/24 1330 Date (more content not included)... Normal [facility] Thyroid Stim Hormone (TSH)on 05-30-2024 TSH 1.120 uIU/mL Normal 0.358-3.74 0 [facility] Comment on above: Performed By: #### L 501.9520, L501.9985, L501.9100, L500.3400 ####[facility] [address] [place], [place], [id number] Urinalysis, Completeon 05-30 BACTERIA 0 SEEN Normal None Seen [facility] Comment on above: Order Comment: CLEAN CATCH Performed By: #### L 400.0001 ####[facility] [address] [place], [address] EPI,SQUAMOUS 0 SEEN Normal 0-5 [facility] Comment on above: Order Comment: CLEAN CATCH Performed By: #### L 400.0001 ####[facility] [address] [place], [address] Mucus Ql (Urine sed) 0 SEEN Normal [facility] Comment on above: Order Comment: CLEAN CATCH Performed By: #### L 400.0001 ####[facility] [address] [place], [address] RBC 0 SEEN Normal 0-5 [facility] Comment on above: Order Comment: CLEAN CATCH Performed By: #### L 400.0001 ####[facility] [address] [facility] [address] WBC 0 SEEN Normal 0-5 [facility] Comment on above: Order Comment: CLEAN CATCH Performed By: #### L 400.0001 ####[facility] [address] [facility] [address] Urine Drug Screen (VISTA)on 05-30-2024 AMPHETAMINES Negative Normal <1000 ng/mL [facility] Comment on above: Performed By: #### L 505.5000 #### [facility] [address] [place] [address] BARBITIURATES Negative Normal < 200 ng/mL [facility] Comment on above: Performed By: #### L 505.5000 #### [facility] [address] [place] [address] BENZODIAZIPINE Negative Normal < 200 ng/mL [facility] Comment on above: Performed By: #### L 505.5000 #### [facility] [address] [facility] [address] COCAINE Negative Normal < 300 ng/mL [facility] Comment on above: Performed By: #### L 505.5000 #### [facility] [address] [facility] [address] ECSTACY Negative Normal < 500 ng/mL [facility] Comment on above: Performed By: #### L 505.5000 #### [facility] [address] [place], [address] METHADONE Negative Normal < 300 ng/mL [facility] Comment on above: Performed By: #### L 505.5000 #### [facility] [address] [place], [address] OPIATES Negative Normal < 300 ng/mL [facility] Comment on above: Performed By: #### L 505.5000 #### [facility] [address] [place], [address] PCP Negative Normal < 25 ng/mL [facility] Comment on above: Performed By: #### L 505.5000 #### [facility] [address] [place], [address] THC Positive Abnormal < 50 ng/mL [facility] Comment on above: Performed By: #### L 505.5000 #### [facility] [address] [place], [address] VISTA UDS PH 7 Normal [facility] Comment on above: Performed By: #### L 505.5000 #### [facility] [address] [place], [address] .Auto Diffon 02-18-2023 Basophil, Absolute 0.1 10 3/mcL Normal 0.0-0.2 [facility] ([place]) Comment on above: Performed By: #### C ROGER MCCLAIN MDW, ANEU, GFR, BMP #### [address] [address] Basophils/100 WBC (Bld) 0.6 % Normal 0.0-2.5 [facility] ([place]) Comment on above: Performed By: #### C ROGER MCCLAIN MDW, ANEU, GFR, BMP #### [address] [address] Eosinophil, Absolute 0.3 10 3/mcL Normal 0.0-0.4 [facility] ([place]) Comment on above: Performed By: #### C JOHNY, HORTENSIA DURAN, ANEU, GFR, BMP #### [address] [address] Eosinophils/100 WBC (Bld) 2.6 % Normal 0.0-7.0 [facility] ([place]) Comment on above: Performed By: #### C JOHNY, HORTENSIA DURAN, ANEU, GFR, BMP #### [address] [address] Lymphocyte, Absolute 1.4 10 3/mcL Normal 0.8-3.9 [facility] ([place]) Comment on above: Performed By: #### C ROGER MCCLAIN MDW, ANEU, GFR, BMP #### [address] [address] Lymphocytes/100 WBC (Bld) 10.6 % Normal 10.0-50.0 [facility] ([place]) Comment on above: Performed By: #### C ROGER MCCLAIN MDW, ANEU, GFR, BMP #### [address] [address] Monocyte, Absolute 1.3 10 3/mcL High 0.2-1.0 [facility] ([place]) Comment on above: Performed By: #### C ROGER MCCLAIN MDW, ANEU, GFR, BMP #### [address] [address] Monocytes/100 WBC (Bld) 9.8 % Normal 1.7-13.0 [facility] ([place]) Comment on above: Performed By: #### C ROGER MCCLAIN MDW, ANEU, GFR, BMP #### [address] [address] Neutrophils/100 WBC (Bld) 76.4 % Normal 37.0-80.0 [facility] ([place]) Comment on above: Performed By: #### C ROGER MCCLAIN MDW, ANEU, GFR, BMP #### [address] [address] .GFRon 02-18-2023 GFR Non- 88 ml/min/1.73sqm Normal [facility] ([place]) Comment on above: Result Comment: GFR Population mean for , Non- Americans Ages 20-29 = 116 mL/min/1.73 sq.m. Ages 30-39 = 107 mL/min/1.73 sq.m. Ages 40-49 = 99 mL/min/1.73 sq.m. Ages 50-59 = 93 mL/min/1.73 sq.m. Ages 60-69 = 85 mL/min/1.73 sq.m. Ages 70+ = 75 mL/min/1.73 sq.m. Chronic Kidney Disease: Less than 60 mL/min/1.73 square meters End Stage Renal Disease: Less than 15 mL/min/1.73 square meters Performed By: #### C ROGER MCCLAIN MDW, ANEU, GFR, BMP #### [address] [address] GFR 107 ml/min/1.73sqm Normal [facility] ([place]) Comment on above: Result Comment: GFR Population mean for , Non- Americans Ages 20-29 = 116 mL/min/1.73 sq.m. Ages 30-39 = 107 mL/min/1.73 sq.m. Ages 40-49 = 99 mL/min/1.73 sq.m. Ages 50-59 = 93 mL/min/1.73 sq.m. Ages 60-69 = 85 mL/min/1.73 sq.m. Ages 70+ = 75 mL/min/1.73 sq.m. Chronic Kidney Disease: Less than 60 mL/min/1.73 square meters End Stage Renal Disease: Less than 15 mL/min/1.73 square meters Performed By: #### C ROGER MCCLAIN MDW, ANEU, GFR, BMP #### [address] [address] .Wfarnaz 02-18-2023 Monocyte Distribution Width 16.87 Normal 0.00-20.00 [facility] ([place]) Comment on above: Result Comment: For ED adult patients suspected of sepsis, MDW<=20.0 does not rule out sepsis or risk of sepsis Performed By: #### C ROGER MCCLAIN MDW, ANEU, GFR, BMP #### [place] [address] .NEUABSon 02-18-2023 Neutrophil, Absolute 9.9 10 3/mcL High 2.9-6.2 [facility] ([place]) Comment on above: Performed By: #### C ROGER MCCLAIN MDW, ANEU, GFR, BMP #### [place] [address] .Urinalysis Microscopic (AO) on 02-18-2023 UA CA Ox Crystal 1+ /hpf Normal [facility] ([place]) Comment on above: Performed By: #### U A, UAMICAO #### [place] [address] UA RBC 10-15 Abnormal None Seen [facility] ([place]) Comment on above: Performed By: #### U A, UAMICAO #### [place] [address] UA Squam Epithelial None Seen Normal None Seen [facility] ([place]) Comment on above: Performed By: #### U A, UAMICAO #### [address] [address] UA WBC None Seen Normal None Seen [facility] ([place]) Comment on above: Performed By: #### U A, UAMICAO #### [place] [address] UA Yeast Trace Abnormal [facility] ([place]) Comment on above: Performed By: #### U A, UAMICAO #### [address] [address] BMPon 02-18-2023 BUN/Creatinine Ratio 15 ratio Normal 7-27 [facility] ([place]) Comment on above: Performed By: #### C ROGER MCCLAIN MDW, ANEU, GFR, BMP #### [place] [address] Calcium [Mass/Vol] 9.1 mg/dL Normal 8.4-10.2 [facility] ([place] Comment on above: Performed By: #### C ROGER MCCLAIN MDW, JUSTINO, GFR, BMP #### [address] [address] Chloride [Moles/Vol] 99 mmol/L Normal 98-107 [facility] ([place]) Comment on above: Performed By: #### C ROGER MCCLAIN MDW, JUSTINO, GFR, BMP #### [address] [address] CO2 [Moles/Vol] 31 mmol/L High 22-29 [facility] ([place]) Comment on above: Performed By: #### C ROGER MCCLAIN MDW, JUSTINO, GFR, BMP #### [address] [address] Creatinine [Mass/Vol] 0.91 mg/dL Normal 0.70-1.30 [facility] ([place]) Comment on above: Performed By: #### C ROGER MCCLAIN MDW, JUSTINO, GFR, BMP #### [address] [address] Electrolyte Balance 9.0 mEq/L Normal 4.0-15.0 [facility] ([place] Comment on above: Performed By: #### C ROGER MCCLAIN MDW, JUSTINO, GFR, BMP #### [address] [address] Glucose [Mass/Vol] 113 mg/dL High 70-105 [facility] [place] Comment on above: Performed By: #### C ROGER MCCLAIN MDW, JUSTINO, GFR, BMP #### [address] [address] Potassium [Moles/Vol] 4.2 mmol/L Normal 3.5-5.1 [facility] ([place]) Comment on above: Performed By: #### C ROGER MCCLAIN MDW, ANEU, GFR, BMP #### [address] [address] Sodium [Moles/Vol] 139 mmol/L Normal 136-145 [facility] [place] Comment on above: Performed By: #### C ROGER MCCLAIN MDW, ANEU, GFR, BMP #### [address] [address] Urea nitrogen [Mass/Vol] 14 mg/dL Normal 7-18 [facility] ([place] Comment on above: Performed By: #### C ROGER MCCLAIN MDW, ANEU, GFR, BMP #### [address] [address] CBCon 02-18-2023 Erythrocyte distribution width (RBC) [Ratio] 14.0 % Normal 11.5-14.5 [facility] ([place] Comment on above: Performed By: #### C ROGER MCCLAIN MDW, ANEU, GFR, BMP #### [address] [address] Hematocrit (Bld) [Volume fraction] 45.2 % Normal 42.0-52.0 [facility] ([place] Comment on above: Performed By: #### C ROGER MCCLAIN MDW, ANEU, GFR, BMP #### [place] [id number] Hgb 15.3 G/dL Normal 14.0-18.0 [facility] ([place] Comment on above: Performed By: #### C ROGER MCCLAIN MDW, ANEU, GFR, BMP #### [place] [address] MCH (RBC) [Entitic mass] 30.8 pg Normal 27.0-31.2 [facility] ([place] Comment on above: Performed By: #### C ROGER MCCLAIN MDW, ANEU, GFR, BMP #### [place] [address] MCHC 33.8 G/dL Normal 31.8-35.4 [facility] ([place] Comment on above: Performed By: #### C ROGER MCCLAIN MDW, ANEU, GFR, BMP #### [place] [address] MCV (RBC) [Entitic vol] 91.3 fL Normal 80.0-94.0 [facility] ([place]) Comment on above: Performed By: #### C ROGER MCCLAIN MDW, ANEU, GFR, BMP #### [place] [address] [place], [place] [address] Platelet 297 10 3/mcL Normal 130-400 [facility] ([place]) Comment on above: Performed By: #### C ROGER MCCLAIN MDW, ANEU, GFR, BMP #### [place] [address] [place], [place] [address] Platelet mean volume (Bld) [Entitic vol] 7.2 fL Low 7.4-10.4 [facility] ([place] Comment on above: Performed By: #### C ROGER MCCLAIN MDW, JUSTINO, GFR, BMP #### [address] [address] RBC 4.95 10 6/mcL Normal 4.04-6.13 [facility] ([place]) Comment on above: Performed By: #### C ROGER MCCLAIN MDW, JUSTINO, GFR, BMP #### [address] [address] WBC 13.0 10 3/mcL High 4.6-10.8 [facility] ([place]) Comment on above: Performed By: #### C ROGER MCCLAIN MDW, ANEU, GFR, BMP #### [address] [address] [address] ABD/PELVIS W/ IV CONTRAST ONLYon 02-18-2023 CT ABD/PELVIS W/ IV CONTRAST ONLY ORIGINAL EXAMINATION: CT OF THE ABDOMEN AND PELVIS WITH CONTRAST 02/18/2023 9:14 am TECHNIQUE: CT of the abdomen and pelvis was performed with the administration of intravenous contrast. Multiplanar reformatted images are provided for review. Automated exposure control, iterative reconstruction, and/or weight based adjustment of the mA/kV was utilized to reduce the radiation dose to as low as reasonably achievable. COMPARISON: March 18, 2017 HISTORY: ORDERING SYSTEM PROVIDED HISTORY: Reason for Exam: LLQ pain. started sat.hx of crohns pain FINDINGS: Minor degenerative changes are noted in the spine. No other osseous abnormality. No osseous abnormality identified. A small central liver cyst is noted. No other liver abnormality. Spleen, adrenal glands and pancreas are unremarkable. No kidney abnormality seen. No adenopathy, free air or free fluid is evident. The urinary bladder is not optimally distended but is grossly normal. Mild to moderate diverticulosis is present at the sigmoid and left colon, with scattered diverticula elsewhere as well. Additionally, there is prominent wall thickening of the proximal to midportion of the sigmoid colon, with prominent adjacent infiltrative increased density. The findings are compatible with moderately prominent diverticulitis. No extraluminal air or drainable abscess is identified. No other GI tract abnormality is visible. No additional contributory finding. IMPRESSION: Moderate sigmoid diverticulitis. No free air or abscess seen. Interpreted by: Dereje Bowers MD Preliminary Report By: Dereje Bowers MD Electronically signed By Dereje Bowers MD Dictated Date: 02/18/2023 9:29:28 AM Prelim Date: 02/18/2023 9:31:45 AM Sign Date: 02/18/2023 9:31:45 AM Ordering Provider: JAJA BARON [facility] ([place]) LABORATORYOrdered By: Kenji Duenas on 02-18-2023 Appearance (U) Clear (02/18/23 8:49 AM) Invalid Interpretation Code Clear AO Auto Urine SS Bilirubin Ql (U) Small *ABN* (02/18/23 8:49 AM) Invalid Interpretation Code Negative AO Auto Urine SS Calcium oxalate crystals LM.HPF (Urine sed) [#/Area] 1 /[HPF] Invalid Interpretation Code AO Auto Urine SS Color (U) Yellow (02/18/23 8:49 AM) Invalid Interpretation Code AO Auto Urine SS Glucose Test strip (U) [Mass/Vol] Negative Invalid Interpretation Code Negative AO Auto Urine SS Hemoglobin Auto test strip (U) [Mass/Vol] Moderate *ABN* (02/18/23 8:49 AM) Invalid Interpretation Code Negative AO Auto Urine SS Ketones Ql (U) Negative Invalid Interpretation Code Negative AO Auto Urine SS UA Leuk Est Negative (02/18/23 8:49 AM) Invalid Interpretation Code Negative AO Auto Urine SS UA Nitrite Negative (02/18/23 8:49 AM) Invalid Interpretation Code Negative AO Auto Urine SS UA pH 6.0 (02/18/23 8:49 AM) Invalid Interpretation Code 5.0 - 8.0 AO Auto Urine SS UA Protein Trace mg/dL Invalid Interpretation Code Negative AO Auto Urine SS UA RBC 10-15 /HPF Invalid Interpretation Code None Seen AO Auto Urine SS UA Spec Grav >=1.030 *ABN* (02/18/23 8:49 AM) Invalid Interpretation Code 1.015-1.02 5 AO Auto Urine SS UA Specimen Type Void (02/18/23 8:49 AM) Invalid Interpretation Code AO Auto Urine SS UA Squam Epithelial None Seen /HPF Invalid Interpretation Code None Seen AO Auto Urine SS UA Urobilinogen 0.2 E.U./dL Invalid Interpretation Code 0.2-1.0 AO Auto Urine SS WBC LM.HPF (Urine sed) [#/Area] None Seen /HPF Invalid Interpretation Code None Seen AO Auto Urine SS Yeast LM.HPF (Urine sed) [#/Area] Trace /HPF Invalid Interpretation Code AO Auto Urine SS LABORATORYOrdered By: SYSTEM SYSTEM on 02-18-2023 Basophil, Absolute 0.1 103/mcL Invalid Interpretation Code 0.0 - 0.2 10^3/mcL AO Workflow SS Basophils/100 WBC (Bld) 0.6 % Invalid Interpretation Code 0.0 - 2.5 % AO Workflow SS Calcium [Mass/Vol] 9.1 mg/dL Invalid Interpretation Code 8.4 - 10.2 mg/dL AO ADM SS Chloride [Moles/Vol] 99 mmol/L Invalid Interpretation Code 98 - 107 mmol/L AO ADM SS CO2 [Moles/Vol] 31 mmol/L Invalid Interpretation Code 22 - 29 mmol/L AO ADM SS Creatinine [Mass/Vol] 0.91 mg/dL Invalid Interpretation Code 0.70 - 1.30 mg/dL AO ADM SS Electrolyte Balance 9.0 mEq/L Invalid Interpretation Code 4.0 - 15.0 mEq/L AO ADM SS Eosinophil, Absolute 0.3 103/mcL Invalid Interpretation Code 0.0 - 0.4 10^3/mcL AO Workflow SS Eosinophils/100 WBC (Bld) 2.6 % Invalid Interpretation Code 0.0 - 7.0 % AO Workflow SS Erythrocyte distribution width (RBC) [Ratio] 14.0 % Invalid Interpretation Code 11.5 - 14.5 % AO Workflow SS GFR/1.73 sq M.predicted among blacks MDRD (S/P/Bld) [Vol rate/Area] 107 ml/min/1.73sqm Invalid Interpretation Code AO Chemistry S Comment on above: Interpretive Data: GFR Population mean for , Non- Americans Ages 20-29 = 116 mL/min/1.73 sq.m. Ages 30-39 = 107 mL/min/1.73 sq.m. Ages 40-49 = 99 mL/min/1.73 sq.m. Ages 50-59 = 93 mL/min/1.73 sq.m. Ages 60-69 = 85 mL/min/1.73 sq.m. Ages 70+ = 75 mL/min/1.73 sq.m. Chronic Kidney Disease: Less than 60 mL/min/1.73 square meters End Stage Renal Disease: Less than 15 mL/min/1.73 square meters GFR/1.73 sq M.predicted among non-blacks MDRD (S/P/Bld) [Vol rate/Area] 88 ml/min/1.73sqm Invalid Interpretation Code AO Chemistry S Comment on above: Interpretive Data: GFR Population mean for , Non- Americans Ages 20-29 = 116 mL/min/1.73 sq.m. Ages 30-39 = 107 mL/min/1.73 sq.m. Ages 40-49 = 99 mL/min/1.73 sq.m. Ages 50-59 = 93 mL/min/1.73 sq.m. Ages 60-69 = 85 mL/min/1.73 sq.m. Ages 70+ = 75 mL/min/1.73 sq.m. Chronic Kidney Disease: Less than 60 mL/min/1.73 square meters End Stage Renal Disease: Less than 15 mL/min/1.73 square meters Glucose [Mass/Vol] 113 mg/dL Invalid Interpretation Code 70 - 105 mg/dL AO ADM SS Hematocrit (Bld) [Volume fraction] 45.2 % Invalid Interpretation Code 42.0 - 52.0 % AO Workflow SS Hemoglobin (Bld) [Mass/Vol] 15.3 G/dL Invalid Interpretation Code 14.0 - 18.0 G/dL AO Workflow SS Lymphocyte, Absolute 1.4 103/mcL Invalid Interpretation Code 0.8 - 3.9 10^3/mcL AO Workflow SS Lymphocytes/100 WBC (Bld) 10.6 % Invalid Interpretation Code 10.0 - 50.0 % AO Workflow SS MCH (RBC) [Entitic mass] 30.8 pg Invalid Interpretation Code 27.0 - 31.2 pg AO Workflow SS MCHC 33.8 G/dL Invalid Interpretation Code 31.8 - 35.4 G/dL AO Workflow SS MCV (RBC) [Entitic vol] 91.3 fL Invalid Interpretation Code 80.0 - 94.0 fL AO Workflow SS Monocyte distribution width Auto (Bld) [Entitic vol] 16.87 1 Invalid Interpretation Code 0.00 - 20.00 AO Workflow SS Comment on above: Result Comment: For ED adult patients suspected of sepsis, MDW<=20.0 does not rule out sepsis or risk of sepsis Monocyte, Absolute 1.3 103/mcL Invalid Interpretation Code 0.2 - 1.0 10^3/mcL AO Workflow SS Monocytes/100 WBC (Bld) 9.8 % Invalid Interpretation Code 1.7 - 13.0 % AO Workflow SS Neutrophil, Absolute 9.9 103/mcL Invalid Interpretation Code 2.9 - 6.2 10^3/mcL AO Workflow SS Neutrophils/100 WBC (Bld) 76.4 % Invalid Interpretation Code 37.0 - 80.0 % AO Workflow SS Platelet mean volume (Bld) [Entitic vol] 7.2 fL Invalid Interpretation Code 7.4 - 10.4 fL AO Workflow SS Platelets (Bld) [#/Vol] 297 103/mcL Invalid Interpretation Code 130 - 400 10^3/mcL AO Workflow SS Potassium [Moles/Vol] 4.2 mmol/L Invalid Interpretation Code 3.5 - 5.1 mmol/L AO ADM SS RBC (Bld) [#/Vol] 4.95 106/mcL Invalid Interpretation Code 4.04 - 6.13 10^6/mcL AO Workflow SS Sodium [Moles/Vol] 139 mmol/L Invalid Interpretation Code 136 - 145 mmol/L AO ADM SS Urea nitrogen [Mass/Vol] 14 mg/dL Invalid Interpretation Code 7 - 18 mg/dL AO ADM SS Urea nitrogen/Creatinine [Mass ratio] 15 ratio Invalid Interpretation Code 7 - 27 ratio AO ADM SS WBC (Bld) [#/Vol] 13.0 103/mcL Invalid Interpretation Code 4.6 - 10.8 10^3/mcL AO Workflow SS UAon 02-18-2023 Color (U) Yellow Normal [facility] ([place]) Comment on above: Performed By: #### U DEBI Norton #### [address] [address] Glucose (U) [Mass/Vol] Negative Normal Negative [facility] [place] Comment on above: Performed By: #### U A, UAMICAO #### [address] [address] Ketones Ql (U) Negative Normal Negative [facility] [place] Comment on above: Performed By: #### U A, UAMICAO #### [place] [address] UA Appear Clear Normal Clear [facility] [place] Comment on above: Performed By: #### U A, UAMICAO #### [place] [address] UA Bili Small Abnormal Negative [facility] [place] Comment on above: Performed By: #### U A, UAMICAO #### [place] [address] UA Blood Moderate Abnormal Negative [facility] [place] Comment on above: Performed By: #### U A, UAMICAO #### [place] [address] UA Leuk Est Negative Normal Negative [facility] [place] Comment on above: Performed By: #### U A, UAMICAO #### [place] [id number] UA Nitrite Negative Normal Negative [facility] ([place] Comment on above: Performed By: #### U A, UAMICAO #### [address] [address] UA pH 6.0 Normal 5.0 - 8.0 [facility] [place] Comment on above: Performed By: #### U A, UAMICAO #### [place] [phone] UA Protein Trace Normal Negative [facility] ([place] Comment on above: Performed By: #### U A, UAMICAO #### [place] [id number] UA Spec Grav >=1.030 Abnormal 1.015-1.02 5 [facility] [place] Comment on above: Performed By: #### U A, UAMICAO #### [place] [address] [place], [place] [address] UA Specimen Type Void Normal [facility] [place] Comment on above: Performed By: #### U A, UAMICAO #### [place] [address] [place], [place] [address] UA Urobilinogen 0.2 E.U./dL Normal 0.2-1.0 [facility] ([place] Comment on above: Performed By: #### U A, UAMICAO #### [place] [address] [place], [place] [address] ALLIED HEALTHon 02-16-2023 [facility] HNO ID: [id number] Author: Martha Redd Tech Service: Radiology Author Type: Technologist Type: Allied Health Filed: 02/16/2023 10:47 AM Note Text: Radiology Service Progress Note DATE OF SERVICE: February 16, 2023 TIME: 10:46 AM PATIENT IDENTITY VERIFICATION COMPLETED USING TWO (2) STANDARD IDENTIFIERS: Name and Date of confirmed by patient verbally. FALL SCREENING: Has the patient had 2 falls in the last year or 1 fall with injury or currently using an Ambulatory Assistive Device (Walker, Cane, Wheelchair, Crutches, etc.)? Emergency Room Patient: Screened in ED PATIENT GENDER DATA: Male PATIENT RELEVANT IMPLANT DATA REVIEWED: Not Applicable ALLERGIES: Reviewed and unchanged CONTRAST ALLERGY: NO. EXAM: CT -CONTRAST INDUCED NEPHROPATHY RISK FACTORS: Not applicable CREATININE: Creatinine Date Value Ref Range Status 02/16/2023 0.84 0.73 - 1.22 mg/dL Final 02/18/2017 0.86 0.67 - 1.17 mg/dL Final Estimated Glomerular Filtration Rate Date Value Ref Range Status 02/16/2023 106 >=60 mL/min/1.73m? Final Comment: Estimated Glomerular Filtration Rate (eGFR) is calculated using the 2020 CKD-EPI creatinine equation. This equation utilizes serum creatinine, sex, and age as parameters. The creatinine assay has traceable calibration to isotope dilution-mass spectrometry. Refer to KDIGO guidelines for clinical interpretation. In patients with unstable renal function, e.g. those with acute kidney injury, the eGFR may not accurately reflect actual GFR. P.O.C.T. RESULTS: N/A February 16, 2023 TREATMENT: N/A PERIPHERAL IV DATA: Inpatient - refer to [facility] documentation RADIOLOGY DEPARTMENT: CT; Exam(s) Completed: Abdomen/Pelvis SIGNATURE: Darling Blackman PATIENT NAME: Edda Bernal DATE: February 16, 2023 TIME: 10:46 AM Normal [facility] CBC W Auto Differential pane l (Bld)on 02-16-2023 Basophils (Bld) [#/Vol] 0.03 10*3/uL Normal <0.11 [facility] Comment on above: Order Comment: Speci men Type: BLOOD SPECIMEN Ordering Facility: [facility] Address: [address] [place] [address] Performed By: #### 5 7021-8 #### [facility] CLIA [id number] [address] [place] [address] [place] Basophils/100 WBC (Bld) 0.2 % Normal [facility] Comment on above: Order Comment: Speci men Type: BLOOD SPECIMEN Ordering Facility: [facility] Address: [address] [place] [address] Performed By: #### 5 7021-8 #### [facility] CLIA [id number] [address] [place] [address] [place] Differential cell count method Nom (Bld) Auto Normal [facility] Comment on above: Order Comment: Speci men Type: BLOOD SPECIMEN Ordering Facility: [facility] Address: [address] [place] [address] Performed By: #### 5 7021-8 #### [facility] CLIA [id number] [address] [place] [address] [place] Eosinophils (Bld) [#/Vol] 0.16 10*3/uL Normal <0.46 [facility] Comment on above: Order Comment: Speci men Type: BLOOD SPECIMEN Ordering Facility: [facility] Address: [address] [place] [address] Performed By: #### 5 7021-8 #### [facility] CLIA [id number] [address] [place] [address] [place] Eosinophils/100 WBC (Bld) 0.9 % Normal [facility] Comment on above: Order Comment: Speci men Type: BLOOD SPECIMEN Ordering Facility: [facility] Address: [address] [place] [address] Performed By: #### 5 7021-8 #### [facility] CLIA [id number] [address] [place] [address] [place] Erythrocyte distribution width (RBC) [Ratio] 13.8 % Normal 11.5-15.0 [facility] Comment on above: Order Comment: Speci men Type: BLOOD SPECIMEN Ordering Facility: [facility] Address: [address] [place] [address] Performed By: #### 5 7021-8 #### [facility] CLIA [id number] [address] [place] [address] [place] Hematocrit (Bld) [Volume fraction] 48.8 % Normal 39.0-51.0 [facility] Comment on above: Order Comment: Speci men Type: BLOOD SPECIMEN Ordering Facility: [facility] Address: [address] [place] [address] Performed By: #### 5 7021-8 #### [facility] CLIA [id number] [address] [place] [address] [place] Hemoglobin (Bld) [Mass/Vol] 15.9 g/dL Normal 13.0-17.0 [facility] Comment on above: Order Comment: Speci men Type: BLOOD SPECIMEN Ordering Facility: [facility] Address: [address] [place] [address] Performed By: #### 5 7021-8 #### [facility] CLIA [id number] [address] [place] [address] [place] Immature granulocytes (Bld) [#/Vol] 0.04 10*3/uL Normal <0.10 [facility] Comment on above: Order Comment: Speci men Type: BLOOD SPECIMEN Ordering Facility: [facility] Address: [address] [place] [address] Performed By: #### 5 7021-8 #### [facility] CLIA [id number] [address] [place] [address] [place] [facility] Immature granulocytes/100 WBC (Bld) 0.2 % Normal [facility] Comment on above: Order Comment: Speci men Type: BLOOD SPECIMEN Ordering Facility: [facility] Address: [address] [place] [address] Performed By: #### 5 7021-8 #### [facility] CLIA [id number] [address] [place] [id number] [place] Lymphocytes (Bld) [#/Vol] 2.38 10*3/uL Normal 1.00-4.00 [facility] Comment on above: Order Comment: Speci men Type: BLOOD SPECIMEN Ordering Facility: [facility] Address: [address] [place] [address] Performed By: #### 5 7021-8 #### [facility] CLIA [id number] [address] Lymphocytes/100 WBC (Bld) 13.5 % Normal [facility] Comment on above: Order Comment: Speci men Type: BLOOD SPECIMEN Ordering Facility: [facility] Address: [address] [place] [address] Performed By: #### 5 7021-8 #### [facility] CLIA [id number] [address] [place] [address] [place] MCH (RBC) [Entitic mass] 30.2 pg Normal 26.0-34.0 [facility] Comment on above: Order Comment: Speci men Type: BLOOD SPECIMEN Ordering Facility: [facility] Address: [address] [place] [address] Performed By: #### 5 7021-8 #### [facility] CLIA [id number] [address] [place] [id number] [place] MCHC (RBC) [Mass/Vol] 32.6 g/dL Normal 30.5-36.0 [facility] Comment on above: Order Comment: Speci men Type: BLOOD SPECIMEN Ordering Facility: [facility] Address: [address] [place] [address] Performed By: #### 5 7021-8 #### [facility] CLIA [id number] [address] [place] [address] [place] MCV (RBC) [Entitic vol] 92.8 fL Normal 80.0-100.0 [facility] Comment on above: Order Comment: Speci men Type: BLOOD SPECIMEN Ordering Facility: [facility] Address: [address] [place] [address] Performed By: #### 5 7021-8 #### [facility] CLIA [id number] [address] [place] [address] [place] Monocytes (Bld) [#/Vol] 1.58 10*3/uL High <0.87 [facility] Comment on above: Order Comment: Speci men Type: BLOOD SPECIMEN Ordering Facility: [facility] Address: [address] [place] [address] Performed By: #### 5 7021-8 #### [facility] CLIA [id number] [address] [place] [address] [place] Monocytes/100 WBC (Bld) 8.9 % Normal [facility] Comment on above: Order Comment: Speci men Type: BLOOD SPECIMEN Ordering Facility: [facility] Address: [address] [place] [address] Performed By: #### 5 7021-8 #### [facility] CLIA [id number] [address] [place] [address] [place] Neutrophils (Bld) [#/Vol] 13.49 10*3/uL High 1.45-7.50 [facility] Comment on above: Order Comment: Speci men Type: BLOOD SPECIMEN Ordering Facility: [facility] Address: [address] [place] [address] Performed By: #### 5 7021-8 #### [facility] CLIA [id number] [address] [place] [address] [place] Neutrophils/100 WBC (Bld) 76.3 % Normal [facility] Comment on above: Order Comment: Speci men Type: BLOOD SPECIMEN Ordering Facility: [facility] Address: [address] [place] [address] Performed By: #### 5 7021-8 #### [facility] CLIA [id number] [address] [place] [address] [place] Nucleated RBC (Bld) [#/Vol] Normal [facility] Comment on above: Order Comment: Speci men Type: BLOOD SPECIMEN Ordering Facility: [facility] Address: [address] [place] [address] Performed By: #### 5 7021-8 #### [facility] CLIA [id number] [address] [place] [address] [place] Nucleated RBC/100 WBC (Bld) [Ratio] Normal [facility] Comment on above: Order Comment: Speci men Type: BLOOD SPECIMEN Ordering Facility: [facility] Address: [address] [place] [address] Performed By: #### 5 7021-8 #### [facility] CLIA [id number] [address] [place] [address] [place] Platelet mean volume (Bld) [Entitic vol] 9.1 fL Normal 9.0-12.7 [facility] Comment on above: Order Comment: Speci men Type: BLOOD SPECIMEN Ordering Facility: [facility] Address: [address] [place] [address] Performed By: #### 5 7021-8 #### [facility] CLIA [id number] [address] [place] [address] [place] Platelets (Bld) [#/Vol] 287 10*3/uL Normal 150-400 [facility] Comment on above: Order Comment: Speci men Type: BLOOD SPECIMEN Ordering Facility: [facility] Address: [address] [place] [address] Performed By: #### 5 7021-8 #### [facility] CLIA [id number] [address] [place] [address] [facility] [place] RBC (Bld) [#/Vol] 5.26 10*6/uL Normal 4.20-6.00 [facility] Comment on above: Order Comment: Speci men Type: BLOOD SPECIMEN Ordering Facility: [facility] Address: [place] [address] Performed By: #### 5 7021-8 #### [facility] CLIA [id number] [address] [place] [address] [facility] [place] WBC (Bld) [#/Vol] 17.68 10*3/uL High 3.70-11.00 [facility] Comment on above: Order Comment: Speci men Type: BLOOD SPECIMEN Ordering Facility: [facility] Address: [address] [place] [address] Performed By: #### 5 7021-8 #### [facility] CLIA [id number] [address] [place] [id number] [facility] CT ABD/PEL W IVCONon 16-[address] ABD/PEL W IVCON * * *Final Report* * * DATE OF EXAM: Feb 16 2023 10:[facility]PEL W IVCON / PROCEDURE REASON: LLQ abdominal pain * * * * Physician Interpretation * * * * EXAMINATION: CT ABDOMEN AND PELVIS WITH IV CONTRAST CLINICAL HISTORY: Lower abdominal pain TECHNIQUE: CT of the abdomen and pelvis was performed using standard technique, scanning from just above the dome of the diaphragm to the symphysis pubis. MQ: CTAP_3 Contrast: IV: 100 ml of Omnipaque 350 : ml of CT Radiation dose: Integrated Dose-length product (DLP) for this visit = 638.31 mGy*cm. CT Dose Reduction Employed: Automated exposure control(AEC) and iterative recon COMPARISON: None. RESULT: Liver: No mass. 10 mm fluid density most consistent with a cyst in the right hepatic lobe axial image 29 Biliary: No bile duct dilation. Gallbladder unremarkable Spleen: No mass. No splenomegaly. Pancreas: No mass or duct dilation. Adrenals: No mass. Kidneys: No hydronephrosis or signs of pyelonephritis. Subcentimeter posterior upper left renal cortical fluid density characteristic of a small cyst. GI tract: Moderate degree of acute sigmoid diverticulitis with a moderate degree of pericolonic inflammatory changes. No focal drainable fluid collection is seen Lymph nodes: No abdominal or pelvic lymphadenopathy. Mesentery/Peritoneum: No ascites or mass. Retroperitoneum: No mass. Vasculature: No aneurysm of proximal large vessel thrombosis Pelvis: No mass, ascites or fluid collection. Bones/Soft Tissues: No acute osseous abnormalities Lower thorax: Unremarkable. [employer] Specialist (topogram) images: Unremarkable. IMPRESSION: Moderate degree of acute sigmoid diverticulitis with a moderate degree of pericolonic inflammatory changes. No focal drainable fluid collection is seen No CT evidence of pneumoperitoneum. Color Strainer: MIREYA Transcribe Date/Time: Feb 16 2023 11:29A Dictated by : OWNE MARX MD This examination was interpreted and the report reviewed and electronically signed by: OWEN MARX MD on Feb 16 2023 11:32AM EST [id number] Normal [facility] Comprehensive metabolic 2000 panelon 02-16-2023 Albumin [Mass/Vol] 4.4 g/dL Normal 3.9-4.9 [facility] Comment on above: Order Comment: Helen gutierrez Type: BLOOD SPECIMEN Ordering Facility: [facility] Address: [address] [place] [address] Performed By: #### 3 040-3, 79047-8 #### [facility] CLIA [id number] [address] ALP [Catalytic activity/Vol] 88 U/L Normal 38-113 [facility] Comment on above: Order Comment: Helen gutierrez Type: BLOOD SPECIMEN Ordering Facility: [facility] Address: [address] [place] [address] Performed By: #### 3 040-3, 94413-2 #### [facility] CLIA [id number] [address] [place], [place] [address] [place] [address] [place] ALT With P-5'-P [Catalytic activity/Vol] 16 U/L Normal 10-54 [facility] Comment on above: Order Comment: Speci men Type: BLOOD SPECIMEN Ordering Facility: [facility] Address: [address] [place] [address] Performed By: #### 3 040-3, #### [facility] CLIA [id number] [address] [place] [address] [place] Anion gap [Moles/Vol] 12 mmol/L Normal 9-18 [facility] Comment on above: Order Comment: Speci men Type: BLOOD SPECIMEN Ordering Facility: [facility] Address: [address] [place] [address] Performed By: #### 3 -3, #### [facility] CLIA [id number] [address] [place] [address] [place] AST With P-5'-P [Catalytic activity/Vol] 19 U/L Normal 14-40 [facility] Comment on above: Order Comment: Speci men Type: BLOOD SPECIMEN Ordering Facility: [facility] Address: [address] [place] [address] Performed By: #### 3 040-3, #### [facility] CLIA [id number] [address] [place] [address] [place] Bilirubin [Mass/Vol] 0.8 mg/dL Normal 0.2-1.3 [facility] Comment on above: Order Comment: Speci men Type: BLOOD SPECIMEN Ordering Facility: [facility] Address: [address] [place] [address] Performed By: #### 3 040-3, 87582-0 #### [facility] CLIA [id number] [address] [place] [address] [place] Calcium [Mass/Vol] 9.5 mg/dL Normal 8.5-10.2 [facility] Comment on above: Order Comment: Speci men Type: BLOOD SPECIMEN Ordering Facility: [facility] Address: [address] [place] [address] Performed By: #### 3 -3, #### [facility] CLIA [id number] [address] [place] [address] [place] Chloride [Moles/Vol] 100 mmol/L Normal 97-105 [facility] Comment on above: Order Comment: Specshanthi men Type: BLOOD SPECIMEN Ordering Facility: [facility] Address: [address] [place] [address] Performed By: #### 3 3, 59874-7 #### [facility] CLIA [id number] [address] [place] [address] [place] CO2 [Moles/Vol] 24 mmol/L Normal 22-30 [facility] Comment on above: Order Comment: Helen men Type: BLOOD SPECIMEN Ordering Facility: [facility] Address: [address] [place] [address] Performed By: #### 3 , 99728-9 #### [facility] CLIA [id number] [address] [place] [address] [place] [facility] Creatinine [Mass/Vol] 0.84 mg/dL Normal 0.73-1.22 [facility] Comment on above: Order Comment: Speci men Type: BLOOD SPECIMEN Ordering Facility: [facility] Address: [address] [place] [address] Performed By: #### 3 040-3, #### [facility] CLIA [id number] [address] [place] [address] [facility] Creatinine and Glomerular filtration rate.predicted panel (S/P/Bld) 106 mL/min/1.73m??? Normal >=60 [facility] Comment on above: Order Comment: Speci men Type: BLOOD SPECIMEN Ordering Facility: [facility] Address: [address] [place] [address] Result Comment: Arcelia mated Glomerular Filtration Rate (eGFR) is calculated using the 2020 CKD-EPI creatinine equation. This equation utilizes serum creatinine, sex, and age as parameters. The creatinine assay has traceable calibration to isotope dilution-mass spectrometry. Refer to KDIGO guidelines for clinical interpretation. In patients with unstable renal function, e.g. those with acute kidney injury, the eGFR may not accurately reflect actual GFR. Performed By: #### 3 040-3, 62563-7 #### [facility] DharmaMARÍ[facility] CLIA [id number] [address] [place] [address] [place] Glucose [Mass/Vol] 111 mg/dL High 74-99 [facility] Comment on above: Order Comment: Helen gutierrez Type: BLOOD SPECIMEN Ordering Facility: [facility] Address: [address] [place] [address] Result Comment: The [place] [employer] (ADA) provides guidance for cutoff values for fasting glucose and random glucose. The ADA defines fasting as no caloric intake for at least 8 hours. Fasting plasma glucose results between 100 to 125 mg/dL indicate increased risk for diabetes (prediabetes). Fasting plasma glucose results greater than or equal to 126 mg/dL meet the criteria for diagnosis of diabetes. In the absence of unequivocal hyperglycemia, results should be confirmed by repeat testing. In a patient with classic symptoms of hyperglycemia or hyperglycemic crisis, random plasma glucose results greater than or equal to 200 mg/dL meet the criteria for diagnosis of diabetes. Reference: Standards of Medical Care in Diabetes 2016, [place] [employer] Association. Diabetes Care. 2016.39(Suppl 1). Performed By: #### 3 040-3, 13543-7 #### [facility] CLIA [id number] [address] [place] [address] [place] Potassium [Moles/Vol] 4.3 mmol/L Normal 3.7-5.1 [facility] Comment on above: Order Comment: Helen gutierrez Type: BLOOD SPECIMEN Ordering Facility: [facility] Address: [address] [place] [address] Performed By: #### 3 040-3, 30090-8 #### [facility] CLIA [id number] [address] [place] [address] [place] Protein [Mass/Vol] 7.7 g/dL Normal 6.3-8.0 [facility] Comment on above: Order Comment: Helen gutierrez Type: BLOOD SPECIMEN Ordering Facility: [facility] Address: [address] [place] [address] Performed By: #### 3 040-3, 28995-7 #### [facility] CLIA [id number] [address] [place] [address] [place] Sodium [Moles/Vol] 136 mmol/L Normal 136-144 [facility] Comment on above: Order Comment: Speci men Type: BLOOD SPECIMEN Ordering Facility: [facility] Address: [address] [place] [address] Performed By: #### 3 040-3, 27250-1 #### [facility] CLIA [id number] [address] [place] [address] [place] Urea nitrogen [Mass/Vol] 13 mg/dL Normal 9-24 [facility] Comment on above: Order Comment: Speci men Type: BLOOD SPECIMEN Ordering Facility: [facility] Address: [address] [place] [address] Performed By: #### 3 040-3, 23123-9 #### [facility] CLIA [id number] [address] [place] [address] [facility] ED NOTEon 02-16-2023 ED NOTE HNO ID: [id number] Author: Jayla Mckee RN Service: ? Author Type: Registered Nurse Type: ED Notes Filed: 02/16/2023 9:35 AM Note Text: Pt arrives c/o LLQ abdominal pain since Thursday Denies vomiting/diarrhea Denies fever Pt changed into gown Normal [facility] ED PROV NOTEon 02-16-2023 ED PROV NOTE HNO ID: [id number] Author: Lily Villavicencio DO Service: Emergency Medicine Author Type: Physician Type: ED Provider Notes Filed: 02/16/2023 6:20 PM Note Text: ED Provider Note Patient Name: Edda Bernal : 1970 SERVICE DATE: 02/16/23 History Patient presents with: Abdominal Pain Edda Bernal is a 52 year old male with history of diverticulosis who presents with Abdominal Pain. - Symptoms began Thursday. - Severity: moderate - Timing: constant - Quality: sore - Abdominal Pain is exacerbated by palpation. - Symptoms are associated with left testicle pain, nausea. - Symptoms are not associated with chest pain, chills, diarrhea, fever, rash, shortness of breath, URI symptoms, vomiting, dysuria, hematuria, flank pain, back pain, trauma, hematochezia or melena, hematemesis Patient presents with left lower abdominal pain that started on Thursday. He states that he has had nausea, no vomiting. No diarrhea. No dark or bloody stools. No fever or chills. No dysuria or hematuria. No flank pain or back pain. He states this morning his left testicle and scrotum felt sore. There has been no trauma. He reports a history of diverticulosis, as well as, hernia in the past. No known history of kidney stones. PAST MEDICAL HISTORY Diagnosis Date Diverticulosis of both small and large intestine without perforation or abscess without bleeding 10/02/2008 Diverticulosis of colon (without mention of hemorrhage) Diverticulosis Family history of colon cancer 10/10/2008 Migraine headache without aura PAST SURGICAL HISTORY Procedure Laterality Date APPENDECTOMY COLONOSCOPY FLX DX W/COLLJ SPEC WHEN PFRMD 10/10/08 Sigmoid diverticulosis COLONOSCOPY FLX DX W/COLLJ SPEC WHEN PFRMD 05/10/14 Colonoscopy COLONOSCOPY FLX DX W/COLLJ SPEC WHEN PFRMD 06/25/15 Colonoscopy ESOPHAGOGASTRODUODENOSCOPY TRANSORAL DIAGNOSTIC 05/10/14 EGD LAP UMBILICAL HERNIA REPAIR 2008 RPR 1ST INGUN HRNA AGE 5 YRS/> REDUCIBLE 10-12-08 open left SPINAL PUNCTURE FOR MIGRAINES FAMILY HISTORY Problem Relation Age of Onset other (KIDNEY STONES) Mother Colon Cancer Father diagnosed in early 50's Diabetes Father 60 Type II Seizures Brother Social History Tobacco Use Smoking status: Every Day Packs/day: 1.00 Years: 20.00 Additional pack years: 0.00 Total pack years: 20.00 Types: Cigarettes Smokeless tobacco: Never Tobacco comments: discussed methods of quitting Substance and Sexual Activity Alcohol use: No Drug use: Yes Types: Marijuana Sexual activity: Yes Partners: Female ALLERGIES Allergen Reactions Augmentin [Amoxicil* Rash Chantix [Vareniclin* Itching, Shortness of Breath Hydrocodone-Acetami* Mental Status Change Peanuts GI Upset Penicillin Unknown Review of Systems Constitutional: Negative for chills and fever. Respiratory: Negative for shortness of breath. Cardiovascular: Negative for chest pain. Gastrointestinal: Positive for abdominal pain and nausea. Negative for anal bleeding, blood in stool, diarrhea and vomiting. Genitourinary: Positive for testicular pain (left testicle sore). Negative for dysuria, flank pain and hematuria. Musculoskeletal: Negative for back pain. Skin: Negative for rash. Neurological: Negative for weakness and numbness. Psychiatric/Behavioral: Negative for agitation and confusion. Physical Exam Vitals [02/16/23 0931] BP Pulse Temp Temp src Resp SpO2 Weight Height 139/85 (!) 91 36.9 ?C (98.5 ?F) Temporal 16 95 % 81.6 kg (180 lb) -- Physical Exam Vitals and nursing note reviewed. Exam conducted with a projector booth operator present. Constitutional: General: He is not in acute distress. Appearance: He is not ill-appearing, toxic-appearing or diaphoretic. HENT: Head: Normocephalic and atraumatic. Mouth/Throat: Pharynx: Oropharynx is clear. Eyes: Conjunctiva/sclera: Conjunctivae normal. Cardiovascular: Rate and Rhythm: Normal rate and regular rhythm. Pulses: Normal pulses. Pulmonary: Effort: Pulmonary effort is normal. Breath sounds: Normal breath sounds. Abdominal: General: Abdomen is flat. Bowel sounds are normal. There is no distension. Palpations: Abdomen is soft. Tenderness: There is abdominal tenderness in the right lower quadrant and left lower quadrant. There is no right CVA tenderness or left CVA tenderness. Hernia: There is no hernia in the left inguinal area or right inguinal area. Genitourinary: Testes: Cremasteric reflex is present. Right: Tenderness or swelling not present. Right testis is descended. Cremasteric reflex is present. Left: Tenderness present. Swelling not present. Left testis is descended. Cremasteric reflex is present. Musculoskeletal: Right lower leg: No edema. Left lower leg: No edema. Skin: General: Skin is warm and dry. Capillary Refill: Capillary refill takes less than 2 seconds. Findings: No rash. Neurological: General: (more content not included)... Normal [facility] Lactate (Bld) [Moles/Vol]on 02-16-2023 Lactate [Moles/Vol] 1.0 mmol/L Normal 0.5-2.2 [facility] Comment on above: Order Comment: Speci men Type: BLOOD SPECIMEN Ordering Facility: [facility] Address: [address] [place] [address] Performed By: #### 3 2693-4 #### [facility] CLIA [id number] [address] [place] [address] [place] Lipase SerPl-cCncon 02-17-20 Lipase [Catalytic activity/Vol] 30 U/L Normal 16- [facility] Comment on above: Order Comment: Speci men Type: BLOOD SPECIMEN Ordering Facility: [facility] Address: [place] [address] Performed By: #### 3 040-3, 04716-2 #### [facility] CLIA [id number] [address] [place] [address] [place] US DOPPLER COMPLETEon 2022 US DOPPLER COMPLETE * * *Final Report* * * DATE OF EXAM: Feb 16 2023 10:41AM LDU 1033 - US DOPPLER COMPLETE / PROCEDURE REASON: Scrotal pain, nontraumatic * * * * Physician Interpretation * * * * Impression: Please refer to scrotal ultrasound report accession [id number] Color Strainer: MIREYA Transcribe Date/Time: Feb 23 2023 2:41P Dictated by : OWEN MARX MD This examination was interpreted and the report reviewed and electronically signed by: OWEN MARX MD on Feb 23 2023 2:41PM EST [id number] Normal [facility] US SCROTUM AND CONTENTSon US SCROTUM AND CONTENTS * * *Final Report* * * DATE OF EXAM: Feb 16 2023 10:41AM LDU 1063 - US SCROTUM AND CONTENTS / PROCEDURE REASON: Testicular torsion * * * * Physician Interpretation * * * * EXAMINATION: SCROTAL ULTRASOUND WITH DOPPLER IMAGING CLINICAL HISTORY: Testicular torsion, left testicular swelling TECHNIQUE: Sonography of the scrotal contents with color flow and spectral Doppler imaging of the testicular vasculature was performed. Images were obtained and stored in a permanent archive. M: USC_2 COMPARISON: None RESULT: RIGHT SCROTUM: Right testis: 4.9 x 3.8 x 2.4 cm. Homogeneous with no calcifications or mass. Normal intratesticular arterial and venous flow with normal spectral waveforms. Epididymis: Normal. Vascular flow on Color Doppler is symmetric to the contralateral side. Hydrocele: none Varicocele: absent LEFT SCROTUM: Left testis: 4.6 x 3.2 x 1.9 cm. Homogeneous with no calcifications or mass. Normal intratesticular arterial and venous flow with normal spectral waveforms. Epididymis: Normal. Vascular flow on Color Doppler is symmetric to the contralateral side. Hydrocele: 4.5 x 2.0 x 1.1 cm left-sided hydrocele Varicocele: absent IMPRESSION: 1. Normal sonographic appearance of the testicles. Normal arterial and venous flow within both testes. 2. 4.5 x 2.0 x 1.1 cm left-sided hydrocele Color Strainer: MIREYA Transcribe Date/Time: Feb 16 2023 11:05A Dictated by : OWEN MARX MD This examination was interpreted and the report reviewed and electronically signed by: OWEN MARX MD on Feb 16 2023 11:06AM EST [id number] Normal [facility] Urinalysis complete panel (U )on 02-16-2023 Bilirubin Ql (U) 1+ Abnormal Negative [facility] Comment on above: Order Comment: Speci men Type: URINE SPECIMEN Ordering Facility: [facility] Address: [address] [place] [address] Result Comment: Sugg est correlation with clinical findings and serum bilirubin if clinically indicated. Performed By: #### 2 4356-8 #### [facility] CLIA [id number] [address] [place] [id number] [place] Clarity (Unsp spec) Clear Normal Clear [facility] Comment on above: Order Comment: Speci men Type: URINE SPECIMEN Ordering Facility: [facility] Address: [address] [place] [address] Performed By: #### 2 4356-8 #### [facility] CLIA [id number] [address] [place] [address] [place] Color (U) Dark Yellow Abnormal Yellow [facility] Comment on above: Order Comment: Speci men Type: URINE SPECIMEN Ordering Facility: [facility] Address: [address] [place] [address] Performed By: #### 2 4356-8 #### [facility] CLIA [id number] [address] [place] [address] [place] Epithelial cells LM.HPF (Urine sed) [#/Area] Few Normal [facility] Comment on above: Order Comment: Speci men Type: URINE SPECIMEN Ordering Facility: [facility] Address: [address] [place] [address] Performed By: #### 2 4356-8 #### [facility] CLIA [id number] [address] [place] [address] [facility] Glucose Test strip (U) [Mass/Vol] Negative Normal Negative [facility] Comment on above: Order Comment: Speci men Type: URINE SPECIMEN Ordering Facility: [facility] Address: [address] [place] [address] Performed By: #### 2 4356-8 #### [facility] CLIA [id number] [address] [place] [address] [place] Hemoglobin Ql (U) 2+ Abnormal Negative [facility] Comment on above: Order Comment: Speci men Type: URINE SPECIMEN Ordering Facility: [facility] Address: [address] [place] [address] Performed By: #### 2 4356-8 #### [facility] CLIA [id number] [address] [place] [address] [place] Ketones Ql (U) 2+ Abnormal Negative [facility] Comment on above: Order Comment: Speci men Type: URINE SPECIMEN Ordering Facility: [facility] Address: [address] [place] [address] Performed By: #### 2 4356-8 #### [facility] CLIA [id number] [address] [place] [address] [place] Leukocyte esterase Test strip Ql (U) Negative Normal Negative [facility] Comment on above: Order Comment: Speci men Type: URINE SPECIMEN Ordering Facility: [facility] Address: [address] [place] [address] Performed By: #### 2 4356-8 #### [facility] CLIA [id number] [address] [place] [address] [place] Nitrite Ql (U) Negative Normal Negative [facility] Comment on above: Order Comment: Speci men Type: URINE SPECIMEN Ordering Facility: [facility] Address: [address] [place] [address] Performed By: #### 2 4356-8 #### [facility] CLIA [id number] [address] [place] [address] [place] pH (U) 6.0 [pH] Normal 5.0-8.0 [facility] Comment on above: Order Comment: Speci men Type: URINE SPECIMEN Ordering Facility: [facility] Address: [address] [place] [address] Performed By: #### 2 4356-8 #### [facility] CLIA [id number] [address] [place], [place] [id number] [place] Protein (U) [Mass/Vol] 2+ Abnormal Negative [facility] Comment on above: Order Comment: Speci men Type: URINE SPECIMEN Ordering Facility: [facility] Address: [address] [place] [address] Performed By: #### 2 4356-8 #### [facility] CLIA [id number] [address] [place] [address] [place] RBC LM.HPF (Urine sed) [#/Area] /[HPF] Abnormal 0-3 /HPF [facility] Comment on above: Order Comment: Speci men Type: URINE SPECIMEN Ordering Facility: [facility] Address: [address] [place] [address] Performed By: #### 2 4356-8 #### [facility] CLIA [id number] [address] [place] [address] [place] Specific gravity (U) [Rel density] 1.025 Normal 1.005-1.03 0 [facility] Comment on above: Order Comment: Speci men Type: URINE SPECIMEN Ordering Facility: [facility] Address: [address] [place] [address] Performed By: #### 2 4356-8 #### [facility] CLIA [id number] [address] [place], [place] [id number] [facility] Urobilinogen Ql (U) 1.0 EU/dL Normal 0.2-1.0 EU/dL [facility] Comment on above: Order Comment: Speci men Type: URINE SPECIMEN Ordering Facility: [facility] Address: [address] [place] [address] Performed By: #### 2 4356-8 #### [facility] CLIA [id number] [address] [place] [address] WBC LM.HPF (Urine sed) [#/Area] 0-5 /HPF Normal 0-5 /HPF [facility] Comment on above: Order Comment: Speci men Type: URINE SPECIMEN Ordering Facility: [facility] Address: [address] [place] [address] Performed By: #### 2 4356-8 #### [facility] CLIA [id number] [address] [place] [address] LABORATORYOrdered By: Karen Farnsworth on 05-12-2021 ADMITTED TO INTENSIVE CARE UNIT FOR CONDITION OF INTEREST:FIND:PT:^P ATIENT:ORD: No (05/12/21 9:25 PM) Invalid Interpretation Code AO Auto Urine SS EMPLOYED IN A HEALTHCARE SETTING:FIND:PT:^PA TIENT:ORD: No (05/12/21 9:25 PM) Invalid Interpretation Code AO Auto Urine SS FIRST TEST FOR CONDITION OF INTEREST:FIND:PT:^P ATIENT:ORD: Unknown (05/12/21 9:25 PM) Invalid Interpretation Code AO Auto Urine SS HAS SYMPTOMS RELATED TO CONDITION OF INTEREST:FIND:PT:^P ATIENT:ORD: Yes (05/12/21 9:25 PM) Invalid Interpretation Code AO Auto Urine SS Illness or injury onset date and time 20210513 Invalid Interpretation Code AO Auto Urine SS Patient was hospitalized because of this condition No (05/12/21 9:25 PM) Invalid Interpretation Code AO Auto Urine SS status Not (05/12/21 9:25 PM) Invalid Interpretation Code AO Auto Urine SS RESIDES IN A CONGREGATE CARE SETTING:FIND:PT:^PA TIENT:ORD: No (05/12/21 9:25 PM) Invalid Interpretation Code AO Auto Urine SS SARS-CoV-2 (COVID-19) RNA RONNIE+probe Ql (Resp) Positive *ABN* (05/12/21 9:25 PM) Invalid Interpretation Code Negative AO Auto Urine SS SARS-CoV-2 (COVID-19) RNA RONNIE+probe Ql (Unsp spec) Positive results are indicative of the presence of SARS-CoV-2 RNA; clinical correlation with patient history and other diagnostic information is necessary to determine patient infection status. Positive results do not rule out bacterial infection or co-infection with other viruses. The agent detected may not be the definite cause of disease. Laboratories within the [facility] and its territories are required to report all positive results to the appropriate public health authorities.Detection of analyte target(s) does not imply that the corresponding virus(es) are infectious or are the causative agents for clinical symptoms.There is a risk of false positive values resulting from cross-contamination by target organisms, their nucleic acids or amplified product, or from non-specific signals in the assay.PER SARS-CoV-2 Assay is a Real-Time reverse-transcriptase polymerase chain reaction (RT-PCR) based qualitative in vitro diagnostic test intended for the qualitative detection of nucleic acid from the SARS-CoV-2 in nasopharyngeal swab specimens collected from individuals suspected of COVID-19 by their healthcare provider. Testing is limited to laboratories certified under the Clinical Laboratory Improvement Amendments of 1988 (CLIA), 42 U.S.C. 263a, to perform moderate and high complexity tests. Invalid Interpretation Code AO Auto Urine SS CR Finger(s) Min 2 Views [place]ef [place] 03-14-2021 CR Finger(s) Min 2 Views Left Patient Name: EDDA BERNAL Diagnostic Radiology ACCESSION EXAM DATE/TIME PROCEDURE ORDERING PROVIDER [id number] 03/14/2021 15:48 EST CR Finger(s) Min 2 Views [id number] -VLADIMIR MORAN Left CPT code 05407 Reason For Exam (CR Finger(s) Min 2 Views Left) Left index finger smashed Report RADIOGRAPHS OF THE LEFT INDEX FINGER CLINICAL INDICATION: Trauma, pain Three views of the left index finger were obtained. COMPARISON: None. FINDINGS: There is a fracture through the tuft of the second distal phalanx. There is overlying soft tissue swelling and gas. No radiopaque foreign body. Report Dictated on Final Dictated: 03/14/2021 4:08 pm Dictating Physician: MD WALSH NICHOLAS Signed Date and Time: 03/14/2021 4:09 pm Signed by: MD WALSH NICHOLAS Transcribed Date and Time: 03/14/2021 4:08 Normal [facility] ED Provider Noteon ED Provider Note Emergency Department Encounter [facility] EMERGENCY DEPT Patient: Edda Bernal : 1970 Date of Evaluation: 03/14/2021 ED IVY Provider: Vladimir Moran PA-C I independently evaluated this patient per my scope of practice with attending available for consultation as needed. Chief Complaint Chief Complaint Patient presents with ? Hand Injury left index finger was smashed. bleeding controlled. [place] I was wearing a N95, surgical mask for the entirety of this encounter. Edda Bernal is a 50 y.o. male whopresents to the emergency department after smashing left index finger a few hours ago. Patient states that he got the distal portion of his left index finger caught and it was smashed. Patient states the pain is throbbing and rates it as a 10 out of 10. Patient states he is not able to move his finger much due to pain. Bleeding controlled prior to presentation. Patient received his tetanus 4 years ago. Patient denies numbness or tingling. Patient denies any fever, chills, lightheadedness, dizziness, change in vision, headache, chest pain, chest tightness, shortness of breath, cough, abdominal pain, nausea/vomiting, diarrhea, dysuria, hematuria, numbness tingling in extremities, rash, or lower extremity edema. ROS: Review of Systems Constitutional: Negative. HENT: Negative. Respiratory: Negative. Cardiovascular: Negative. Gastrointestinal: Negative. Endocrine: Negative. Genitourinary: Negative. Musculoskeletal: Left index finger laceration/injury, pain Skin: Negative. Allergic/Immunologic: Negative. Neurological: Negative. Hematological: Negative. Psychiatric/Behavioral: Negative. Past History No past medical history on file. No past surgical history on file. Social History Socioeconomic History ? Marital status: Spouse name: Not on file ? Number of children: Not on file ? Years of education: Not on file ? Highest education level: Not on file Occupational History ? Not on file Tobacco Use ? Smoking status: Not on file ? Smokeless tobacco: Not on file Substance and Sexual Activity ? Alcohol use: Not on file ? Drug use: Not on file ? Sexual activity: Not on file Other Topics Concern ? Not on file Social History Narrative ? Not on file Social Determinants of Health Financial Resource Strain: ? Difficulty of Paying Living Expenses: Not on file Food Insecurity: ? Worried About Running Out of Food in the Last Year: Not on file ? Ran Out of Food in the Last Year: Not on file Transportation Needs: ? Lack of Transportation (Medical): Not on file ? Lack of Transportation (Non-Medical): Not on file Physical Activity: ? Days of Exercise per Week: Not on file ? Minutes of Exercise per Session: Not on file Stress: ? Feeling of Stress : Not on file Social Connections: ? Frequency of Communication with Friends and Family: Not on file ? Frequency of Social Gatherings with Friends and Family: Not on file ? Attends Confucianism Services: Not on file ? Active Member of Clubs or Organizations: Not on file ? Attends Club or Organization Meetings: Not on file ? Marital Status: Not on file Intimate Partner Violence: ? Fear of Current or Ex-Partner: Not on file ? Emotionally Abused: Not on file ? Physically Abused: Not on file ? Sexually Abused: Not on file Housing Stability: ? Unable to Pay for Housing in the Last Year: Not on file ? Number of Places Lived in the Last Year: Not on file ? Unstable Housing in the Last Year: Not on file Medications/Allergies Previous Medications No medications on file Allergies Allergen Reactions ? Percocet [Oxycodone-Acetaminophen] Itching ? Penicillins ? Vicodin [Hydrocodone-Acetaminophen] Physical Exam ED Triage Vitals BP Temp Temp src Pulse Resp SpO2 Height Weight -- -- -- -- -- -- -- -- Physical Exam Constitutional: Appearance: Normal appearance. He is normal weight. Cardiovascular: Rate and Rhythm: Normal rate and regular rhythm. Pulses: Normal pulses. Heart sounds: Normal heart sounds. Pulmonary: Effort: Pulmonary effort is normal. Breath sounds: Normal breath sounds. Musculoskeletal: Left hand: Laceration, tenderness and bony tenderness present. Decreased range of motion. Comments: 1 cm laceration to distal palmar aspect of left index finger. Full range of motion at PIP of left index finger. DIP of left index finger limited range of motion due to pain. Denies numbness to left index finger. Skin: General: Skin is warm and dry. Neurological: General: No focal deficit present. Mental Status: He is alert and oriented to person, place, and time. SCREENINGS Lac Repair Date/Time: 03/14/2021 5:12 PM Performed by: Vladimir Moran PA-C Authorized by: Vladimir Moran PA-C Consent: Consent obtained: Verbal Consent given by: Patient Risks discussed: Infection, pain, retained foreign body and poor cosmetic result Alternatives (more content not included)... [facility] ED Provider Note Emergency Department Encounter [facility] EMERGENCY DEPT Patient: Edda Bernal : 1970 Date of Evaluation: 03/14/2021 ED IVY Provider: MICHELLE Olson Chief Complaint Chief Complaint Patient presents with ? Hand Injury left index finger was smashed. bleeding controlled. [place] I was wearing a kn95 mask for the entirety of this encounter. Edda Bernal is a 50 y.o. male who presents to the emergency department for evaluation of a laceration on the patient's left index finger. Patient states he was using an auger when the auger fell on his finger, smashing it. Patient's tetanus shot is up-to-date in the past 5 years. No numbness or tingling, just pain. Patient is right-handed. Patient did not hit his head or lose consciousness. Patient is not on any blood thinners. Patient denies aggravating/alleviating factors. Patient denies CP, SOB, fevers, aches, chills, frequency, urgency, constipation or diarrhea. ROS: Review of Systems At least 5 systems reviewed and otherwise acutely negative except as in the [place]. Past History No past medical history on file. No past surgical history on file. Social History Socioeconomic History ? Marital status: Spouse name: Not on file ? Number of children: Not on file ? Years of education: Not on file ? Highest education level: Not on file Occupational History ? Not on file Tobacco Use ? Smoking status: Not on file ? Smokeless tobacco: Not on file Substance and Sexual Activity ? Alcohol use: Not on file ? Drug use: Not on file ? Sexual activity: Not on file Other Topics Concern ? Not on file Social History Narrative ? Not on file Social Determinants of Health Financial Resource Strain: ? Difficulty of Paying Living Expenses: Not on file Food Insecurity: ? Worried About Running Out of Food in the Last Year: Not on file ? Ran Out of Food in the Last Year: Not on file Transportation Needs: ? Lack of Transportation (Medical): Not on file ? Lack of Transportation (Non-Medical): Not on file Physical Activity: ? Days of Exercise per Week: Not on file ? Minutes of Exercise per Session: Not on file Stress: ? Feeling of Stress : Not on file Social Connections: ? Frequency of Communication with Friends and Family: Not on file ? Frequency of Social Gatherings with Friends and Family: Not on file ? Attends Confucianism Services: Not on file ? Active Member of Clubs or Organizations: Not on file ? Attends Club or Organization Meetings: Not on file ? Marital Status: Not on file Intimate Partner Violence: ? Fear of Current or Ex-Partner: Not on file ? Emotionally Abused: Not on file ? Physically Abused: Not on file ? Sexually Abused: Not on file Housing Stability: ? Unable to Pay for Housing in the Last Year: Not on file ? Number of Places Lived in the Last Year: Not on file ? Unstable Housing in the Last Year: Not on file Medications/Allergies Discharge Medication List as of 03/14/2021 5:02 PM Allergies Allergen Reactions ? Percocet [Oxycodone-Acetaminophen] Itching ? Penicillins ? Vicodin [Hydrocodone-Acetaminophen] Physical Exam ED Triage Vitals [03/14/21 1536] BP Temp Temp Source Pulse Resp SpO2 Height Weight 126/82 98 ?F (36.7 ?C) Temporal 75 14 95 % -- -- Physical Exam GENERAL APPEARANCE: Awake and alert. Cooperative. No acute distress. HEAD: Normocephalic. Atraumatic. EYES: EOM's grossly intact. Sclera anicteric. ENT: Mucous membranes are moist. Tolerates saliva. No trismus. NECK: Supple. Trachea midline. ABDOMEN: Soft. Non-tender. No guarding or rebound. EXTREMITIES: 1 cm laceration present on the thumb side of the nail. Small amount of bleeding present. Full flexion, extension, AB and adduction of phalanges. No foreign bodies present. Cap refill less than 2 seconds. SKIN: Warm and dry. NEUROLOGICAL: No gross facial drooping. Moves all 4 extremities spontaneously. PSYCHIATRIC: Normal mood. SCREENINGS Diagnostics Labs: No results found for this visit on 03/14/21. Radiographs: XR FINGER LEFT (MIN 2 VIEWS) Result Date: 03/14/2021 [id number]iology ACCESSION EXAM DATE/TIME PROCEDURE ORDERING PROVIDER [id number] 03/14/2021 15:48 EST CR Finger(s) Min 2 Views [id number] KIMBROUGH Left CPT code 09087 Reason For Exam (CR Finger(s) Min 2 Views Left) Left index finger smashed Report RADIOGRAPHS OF THE LEFT INDEX FINGER CLINICAL INDICATION: Trauma, pain Three views of the left index finger were obtained. COMPARISON: None. FINDINGS: There is a fracture through the tuft of the second distal phalanx. There is overlying soft tissue swelling and gas. No radiopaque foreign body. Report Dictated on --- Final --- Dictated: 03/14/2021 4:08 pm Dictating Physician: MD JILLIAN [facility] Signed Date and Time: 03/14/2021 4:09 pm Signed by: MD JILLIAN, (more content not included)... Normal [facility] XR FINGER LEFT (MIN 2 VIEWS) on 03-14-2021 [facility]: [facility] [id number] Diagnostic Radiology ACCESSION EXAM DATE/TIME PROCEDURE ORDERING PROVIDER [id number] 03/14/2021 15:48 EST CR Finger(s) Min 2 Views [id number] KIMBROUGH Left CPT code 50819 Reason For Exam (CR Finger(s) Min 2 Views Left) Left index finger smashed Report RADIOGRAPHS OF THE LEFT INDEX FINGER CLINICAL INDICATION: Trauma, pain Three views of the left index finger were obtained. COMPARISON: None. FINDINGS: There is a fracture through the tuft of the second distal phalanx. There is overlying soft tissue swelling and gas. No radiopaque foreign body. Report Dictated on --- Final --- Dictated: 03/14/2021 4:08 pm Dictating Physician: MD WALSH NICHOLAS Signed Date and Time: 03/14/2021 4:09 pm Signed by: MD WALSH NICHOLAS Transcribed Date and Time: 03/14/2021 4:08 [facility] Juan Carlos Walsh MD - 03/14/2021 [facility] [id number] Diagnostic Radiology ACCESSION EXAM DATE/TIME PROCEDURE ORDERING PROVIDER [id number] 03/14/2021 15:48 EST CR Finger(s) Min 2 Views [id number] -VLADIMIR MORAN Left CPT code 69055 Reason For Exam (CR Finger(s) Min 2 Views Left) Left index finger smashed Report RADIOGRAPHS OF THE LEFT INDEX FINGER CLINICAL INDICATION: Trauma, pain Three views of the left index finger were obtained. COMPARISON: None. FINDINGS: There is a fracture through the tuft of the second distal phalanx. There is overlying soft tissue swelling and gas. No radiopaque foreign body. Report Dictated on Workstation: [id number] --- Final --- Dictated: 03/14/2021 4:08 pm Dictating Physician: MD WALSH NICHOLAS Signed Date and Time: 03/14/2021 4:09 pm Signed by: MD WALSH NICHOLAS Transcribed Date and Time: 03/14/2021 4:08 [facility] Work Phone: Radiology Study observation (narrative) [facility] Work Phone: XR FINGER LEFT (MIN 2 VIEWS) Ordered By: Juan Carlos Walsh on 03-14-2021 [facility] Work Phone: Dion 02-25-2017 CNOV Office Visit (GENSWS) EDDA HOLLOWAY ([id number]) 1970 MDate Time Provider Aacyrwskni60/25/17 1:40 PM CHRISTIANE BARBA During your visit today, we recorded the following information about you: Pulse Blood pressure Weight 64/minute 128/68 81.2 kgLinda Lory Barba MD 02/28/2017 3:17 PM SignedLawrence Gerda Bernal1970REFERRING PHYSICIAN: Mackenzie Colunga, [facility] COMPLAINT: Groin PainHPI: The patient is a 46 year old male with a complaint of severe left groinpain.Had left inguinal hernia repair - he states [place]quot;[place] in 2008.States that since that repair, he had severe left groin pain.He then had a what sounds like a laparoscopic her[place] repair in [id number]. States that the surgeon ANDquot;tore everything outANDquot;. He states thatafter that surgery, he had no pain.He states that about 2 months ago, he started noting the pain that he had hadafter the initial 2008 surgery.He states that the pain is a throbbing severe, sometimes sharp pain in the leftgroin area that extends down the left side of his scrotum and to the left innerthigh and then radiates round to the back.Initially it was intermittant, but now the pain has become constant and isseverely debilitating such that he is not able to walk normally. He statesthat he cannot work.Went to ED - CT scan 02/18/17 - possible mild wall thickening urinary bladder,diverticulosis of sigmoid colon - question of mild acute diverticulitisPAST MEDICAL HISTORYDiagnosis Date- Diverticulosis of both small and large intestine without perforation orabscess without bleeding 10/02/2008- Diverticulosis of colon (without mention of hemorrhage) Diverticulosis- Family history of colon cancer 10/10/2008- Migraine headache without auraPAST SURGICAL HISTORYProcedure Laterality Date- APPENDECTOMY- COLONOSCOP W/ OR W/O [facility] SPEC 10/10/08 Sigmoid diverticulosis- COLONOSCOP W/ OR W/O [facility] SPEC 05/10/14 Colonoscopy- COLONOSCOP W/ OR W/O [facility] SPEC 06/25/15 Colonoscopy- EGD W/O OR W/BRUSH/WASH 05/10/14 EGD- LAP UMBILICAL HERNIA REPAIR 2008- REPAIR ING HERNIA,5+Y/O,REDUCIBL 10-12-08 open left- SPINAL PUNCTURE FOR MIGRAINESCurrent Outpatient Prescriptions:diazePAM (VALIUM) 5 mg tablet Take 1 tablet by mouth every 8 hours as needed(Pain or Muscle spasms).ciprofloxacin HCl (CIPRO) 500 mg tablet Take 1 tablet by mouth twice daily for7 days.metroNIDAZOLE (FLAGYL) 500 mg tablet Take 1 tablet by mouth twice daily for 14days.amitriptyline (ELAVIL) 50 mg tablet Take 1 tablet by mouth daily at bedtime.This replaces previous Rx, (dose increase)nicotine (NICODERM) 21 mg/24 hr Apply 1 Patch as directed every 24 hours. 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 No highsreported.FAMILY HISTORYProblem Relation Age of Onset- KIDNEY STONES [OTHER] Mother- Colon Cancer Father diagnosed in early 50's- Diabetes Father 60 Type II- Seizures BrotherREVIEW OF SYSTEMS:General - denies feversCardiovascular - denies chest painPulmonary - denies hemoptysisGastrointestinal - see HPINeurological - denies seizuresGenitourinary - denies blood in urineHematological - denies spontaneous/prolonged bleedingSkin - denies nonhealing skin woundsMusculoskeletal - see aboveEndocrine - denies diabetesPsychological ? denies hallucinationsPHYSICAL EXAMINATION:General: The patient is 46 year old male, well nourished, well hydrated in noacute distress. The patient is oriented to time, place, and person.VITALS: Blood pressure 128/68, pulse 64, weight 81.2 kg (179 lb). Body massindex is 28.04 kg/(m2).Head ? Normocephalic. EOM intact with sclera clear and no icterus noted. Mouthwith mucus membranes moist.Neck - supple with no jugular venous distention noted. Trachea is midline. Nocarotid bruits noted. No masses noted.Lungs ? clear to auscultation.. Normal breath sounds. No rales/rhonchi/wheezingnoted. No labored breathing noted, such as retractions. .Heart ? normal S1 and S2 auscultated. No rubs/clicks/murmurs noted. Regularrate.Abdomen ? soft and benign. Touching area lightly does not show dysthesias inthe area. Trial of ilioinguinal nerve block - no improvement.Normal bowel sounds No masses noted.Extremities ? no calf tenderness noted. No pitting edema noted.Genitalia ? normal male phallus, no inguinal hernias noted even withvalsalva-like maneuversSkin ? normal skin integrity.Neurological ? limping of left LE due to pain and using cane, no localizednumbness notedPsych ? calm and appropriateIMPRESSION: left groin painPLAN: I have discussed the above with the patient.He previously had ANDquot;removal of meshANDquot;, I have no further surgicaloptions, but I have recommended referral to the hernia specialists at [facility].He agrees.I will make a referral for the above.I have answered all questions to the patient?s satisfaction and the patient hasno further questions.Greater than 50% of this patient encounter was dedicated to face to facediscussion with the patient.Diagnoses: (R10.30) Unilateral groin pain (primary encounter diagnosis) Christiane Barba, MDReferring Provider: MACKENZIE COLUNGA [[id number]]Allergies As of Date: 02/25/2017 Noted Allergy ReactionAUGMENTIN (AMOXICILLIN-POT CLAVUL*09/29/2008 2 - RashCHANTIX (VARENICLINE) 05/16/2013 9 - Itching 12 - Shortness of BreathHYDROCODONE-ACETAMINOPHE N 08/28/2008 1 - Mental Status ChangePEANUTS 06/11/2011 8 - GI UpsetPENICILLIN 02/18/2017 16 - UnknownDate Reviewed: 02/25/2017Reviewed by: Leigh Simms 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 OR 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 AND - Fully AssessedReason for Visit: Groin Pain [1378]Primary Visit Diagnosis:Unilateral groin pain [R10.30]Prescriptions as of 02/25/2017 Sig: DIAZEPAM 5 MG TABLET Take 1 tablet by mouth every * CIPROFLOXACIN 500 MG TABLET Take 1 tablet by mouth twice * METRONIDAZOLE 500 MG TABLET Take 1 tablet by mouth twice * AMITRIPTYLINE 50 MG TABLET Take 1 tablet by mouth daily * NICOTINE 21 MG/24 HR DAILY TR* Apply 1 Patch as directed jeff*Problem List As Of Date 02/25/2017 Noted Resolved Crushing injury of hand(s) [S67.20XA] INVALID FOR*04/06/2015 INGUINAL HERNIA, UNILATERAL W/O GANGRENE/OBSTRU*INVALID FOR*05/09/2013 Migraine headache without aura [G43.009] More... Family history of colon cancer [Z80.0] INVALID FOR* More... Tobacco use disorder [F17.200] INVALID FOR* Dysplastic polyp of colon [K63.5] INVALID FOR*Medications Discontinued During This Encounter traMADol (ULTRAM) 50 mg tablet 42 t* 0 02/20/2017 02/25/2017 Class: Print RX Route: ORAL Sig: Take 1 tablet by mouth every 4 hours as needed for Pain for up to 7 days. Disc: Reason for discontinue is not on file. Status:Closed by MD CHRISTIANE BARBA on 02/28/17 Normal [facility] PROGRESSon 02-25-2017 PROGRESS HNO ID: [id number] thor: Christiane Vanegas: (none)Author Type: PhysicianType: Progress NotesFiled: 02/28/2017 3:17 PMNote Text:Edda Bernal1970REFERRING PHYSICIAN: Mackenzie Colunga, [facility] COMPLAINT: Groin PainHPI: The patient is a 46 year old male with a complaint of severe leftgroin pain.Had left inguinal hernia repair - he states Reyna in 2008.States that since that repair, he had severe left groin pain.He then had a what sounds like a laparoscopic hernia repair in [facility] 2009. States that the surgeon tore everything out. He states thatafter that surgery, he had no pain.He states that about 2 months ago, he started noting the pain that he hadhad after the initial 2008 surgery.He states that the pain is a throbbing severe, sometimes sharp pain in theleft groin area that extends down the left side of his scrotum and to theleft inner thigh and then radiates round to the back.Initially it was intermittant, but now the pain has become constant and isseverely debilitating such that he is not able to walk normally. Hestates that he cannot work.Went to ED - CT scan 02/18/17 - possible mild wall thickening urinarybladder, diverticulosis of sigmoid colon - question of mild acutediverticulitisPAST MEDICAL HISTORYDiagnosis Date- Diverticulosis of both small and large intestine without perforation orabscess without bleeding 10/02/2008- Diverticulosis of colon (without mention of hemorrhage) Diverticulosis- Family history of colon cancer 10/10/2008- Migraine headache without auraPAST SURGICAL HISTORYProcedure Laterality Date- APPENDECTOMY- COLONOSCOP W/ OR W/O [facility] SPEC 10/10/08 Sigmoid diverticulosis- COLONOSCOP W/ OR W/O [facility] SPE[facility] 05/10/14 Colonoscopy- COLONOSCOP W/ OR W/O [facility] SPE[facility] 06/25/15 Colonoscopy- EGD W/O OR W/BRUSH/WASH 05/10/14 EGD- LAP UMBILICAL HERNIA REPAIR 2008- REPAIR ING HERNIA,5+Y/O,REDUCIBL 10-12-08 open left- SPINAL PUNCTURE FOR MIGRAINESCurrent Outpatient Prescriptions:diazePAM (VALIUM) 5 mg tablet Take 1 tablet by mouth every 8 hours asneeded (Pain or Muscle spasms).ciprofloxacin HCl (CIPRO) 500 mg tablet Take 1 tablet by mouth twice dailyfor 7 days.metroNIDAZOLE (FLAGYL) 500 mg tablet Take 1 tablet by mouth twice dailyfor 14 days.amitriptyline (ELAVIL) 50 mg tablet Take 1 tablet by mouth daily atbedtime. 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 No highsreported.FAMILY HISTORYProblem Relation Age of Onset- KIDNEY STONES [OTHER] Mother- Colon Cancer Father diagnosed in early 50's- Diabetes Father 60 Type II- Seizures BrotherREVIEW OF SYSTEMS:General - denies feversCardiovascular - denies chest painPulmonary - denies hemoptysisGastrointestinal - see HPINeurological - denies seizuresGenitourinary - denies blood in urineHematological - denies spontaneous/prolonged bleedingSkin - denies nonhealing skin woundsMusculoskeletal - see aboveEndocrine - denies diabetesPsychological ? denies hallucinationsPHYSICAL EXAMINATION:General: The patient is 46 year old male, well nourished, well hydratedin no acute distress. The patient is oriented to time, place, and person.VITALS: Blood pressure 128/68, pulse 64, weight 81.2 kg (179 lb). Bodymass index is 28.04 kg/(m2).Head ? Normocephalic. EOM intact with sclera clear and no icterus noted.Mouth with mucus membranes moist.Neck - supple with no jugular venous distention noted. Trachea is midline.No carotid bruits noted. No masses noted.Lungs ? clear to auscultation.. Normal breath sounds. Ej/rhonchi/wheezing noted. No labored breathing noted, such asretractions. .Heart ? normal S1 and S2 auscultated. No rubs/clicks/murmurs noted.Regular rate.Abdomen ? soft and benign. Touching area lightly does not show dysthesiasin the area. Trial of ilioinguinal nerve block - no improvement.Normal bowel sounds No masses noted.Extremities ? no calf tenderness noted. No pitting edema noted.Genitalia ? normal male phallus, no inguinal hernias noted even withvalsalva-like maneuversSkin ? normal skin integrity.Neurological ? limping of left LE due to pain and using cane, no localizednumbness notedPsych ? calm and appropriateIMPRESSION: left groin painPLAN: I have discussed the above with the patient.He previously had removal of mesh, I have no further surgical options,but I have recommended referral to the hernia specialists at [facility].He agrees.I will make a referral for the above.I have answered all questions to the patient?s satisfaction and thepatient has no further questions.Greater than 50% of this patient encounter was dedicated to face to facediscussion with the patient.Diagnoses: (R10.30) Unilateral groin pain (primary encounter diagnosis) Christiane Barba MD [facility] CNCOon 02-23-2017 CNCO Letter Text [facility]D [facility] hospitalrtment [facility] Internal MedicineMackenzie Colunga MD[address] [phone]: [phone] BernalDOB: 1970MRN: [id number] whom it may concern:My patient, Edda Bernal, was seen today for a doctor's appointment.Please excuse from work missed today for doctor's appointment.Note that may return to work with restriction on Thursday, February 23, 2017.Restriction is for no heavy lifting (no more than 25 pounds) but can drive.This restriction is to remain in place until further notice afterre-evaluation.Sincerely,Saskia Ruiz [facility] CNOVon 02-20-2017 CNOV Office Visit (INTMWS) NITHYA NUREDDA ([id number]) 1970 MDate Time Provider Dhefrsbfck40/20/17 10:00 AM MACKENZIE COLUNGA INTRADHA During your visit today, we recorded the following information about you: Temperature Pulse Respiration Blood pressure 97.5 degrees 64/minute 16/minute 120/76 Weight 81.6 kgMackenzie Colunga MD 03/31/2017 12:49 AM SignedPatient presents with:ER F/USUBJECTIVE:Edda Bernal is a 46 year old year old gentleman here today for ER followup appointment for review of medical conditions.Noted symptoms consistent with hernia pain as had before.Thursday evening with what though was gas pain--LLQ/groin area.Went to ER ThursdayFeb 18.Pain in LLQ to left flank.CT scan was done.MRI was ordered but going to be a long wait.PAST MEDICAL HISTORYDiagnosis Date- Diverticulosis of both small and large intestine without perforation orabscess without bleeding 10/02/2008- Diverticulosis of colon (without mention of hemorrhage) Diverticulosis- Family history of colon cancer 10/10/2008- Migraine headache without auraCurrent Outpatient Prescriptions:diazePAM (VALIUM) 5 mg tablet Take 1 tablet by mouth every 8 hours as needed(Pain or Muscle spasms).ciprofloxacin HCl (CIPRO) 500 mg tablet Take 1 tablet by mouth twice daily for7 days.metroNIDAZOLE (FLAGYL) 500 mg tablet Take 1 tablet by mouth twice daily for 14days.amitriptyline (ELAVIL) 50 mg tablet Take 1 tablet by mouth daily at bedtime.This replaces previous Rx, (dose increase)nicotine (NICODERM) 21 mg/24 hr Apply 1 Patch as directed every 24 hours. Maysubstitute genericNo current facility-administered medications for this visit.OBJECTIVE:BP 120/76 Pulse 64 Temp 36.4 ?C (97.5 ?F) (Temporal Artery) Resp 16 Wt81.6 kg (180 lb) SpO2 99% BMI 28.19 kg/n8Lwayyus is alert, oriented times 3, no apparent distress, affect is bright,reactive.Heart: Regular rate, rhythm, no murmurs, gallops, rubs.Lungs: Clear to auscultation, bilaterally, breathing non labored.Ext: No cyanosis, clubbing, or edema. Noted tender LLQ/left groin area. Seemsto be more full on the left groin area. Noted pain with checking in scrotalarea but could not feel a mass with coughing. No rebound or guarding. No mass.Patient Name Sex Edda Carrera ([id number]) Male ?9:03 AM - Interface, Results InResultsEXAM TITLE: CT OF THE ABDOMEN AND PELVIS WITH INTRAVENOUS CONTRAST?DATE:02/18/2017 08:30?COMPARISON: None.?CLINICAL INDICATION/HISTORY: Left lower quadrant abdominal pain?CT Radiation dose: Integrated Dose-length product (DLP) for this visit = ?1564mGy*cm.CT Dose Reduction Employed: Automated exposure control (AEC) was used.?TECHNIQUE: Following the administration of 150 cc of Visipaque 270 intravenouscontrast axial images were obtained of the abdomen and pelvis in a singleportal-venous phase. ?Oral contrast was not administered.?FINDINGS:?Includ ed lung bases and lower thorax: UnremarkableIncluded osseous structures: Unremarkable?Liver: Small cyst within the left hepatic lobe. ?Liver is otherwiseunremarkable.Gallblad gregor and extrahepatic bile duct: Unremarkable. ?No ductal dilatation isseen.Pancreas and spleen: UnremarkableAdrenal glands: Unremarkable?Kidneys: Symmetric in size and enhancement pattern. ?No evidence ofhydronephrosis. ?No renal calculi are seen. ?No focal mass lesions.Ureters: ?No abnormal dilatation or obstructing calculus is seen.Urinary Bladder: Urinary bladder is incompletely distended. ?There may be mildwall thickening.Pelvic Organs: ?Unremarkable?Stomach and small bowel: Unremarkable. ?No evidence of obstruction or acuteinflammatory process.Large bowel: There is mild diverticulosis of the sigmoid colon. ?There isquestion?mild inflammation at the junction of the left and sigmoid colon which mayindicate mild acute diverticulitis. ?There is no evidence of abscess formationorperforation.?There is a 2.5 cm density adjacent to the left internal inguinal ring. ?Thereappears to been prior left inguinal hernia repair. ?No evidence of recurrenthernia.Appendix: The appendix is not visualized, however there is no dilated tubularstructure or inflammatory change within the right lower quadrant/cecal regionwhich would indicate acute appendicitis.?No peritoneal free air, free fluid or lymphadenopathy is seen.The aorta is normal in caliber.?IMPRESSION:??1. ?Diverticulosis of the sigmoid colon. ?There is suspicion of mild acutediverticulitis at the junction of the left and sigmoid colon. ?No abscessformation or perforation.??2. ?There is questionable diffuse mild wall thickening of the urinary bladder.?This could be artifactual. ?Correlate with urinalysis.ASSESSMENT AND PLAN:Encounter Diagnosis ICD-10-CM1. Groin pain, left R10.32 CONSULT TO GENERAL SURGERY2. History of left inguinal hernia repair Z98.890 CONSULT TO GENERAL SURGERY Z87.19The person who did second hernia repair retired.Letter for work given.Further evaluation and treatment as indicated.Discussed red flag symptoms that would be indications of need for ER visit.Over 50% of this at least 15 minute visit was spent counseling about aboveissues.Barrington Chung MD 02/20/2017 11:45 AM SignedMay take Gas X 80 to 125mg 4 times daily to prevent or treat gas pain.Referring Provider: SELF [[id number]]Allergies As of Date: 02/20/2017 Noted Allergy ReactionAUGMENTIN (AMOXICILLIN-POT CLAVUL*09/29/2008 2 - RashCHANTIX (VARENICLINE) 05/16/2013 9 - Itching 12 - Shortness of BreathHYDROCODONE-ACETAMINOPHE N 08/28/2008 1 - Mental Status ChangePEANUTS 06/11/2011 8 - GI UpsetPENICILLIN 02/18/2017 16 - UnknownDate Reviewed: 02/20/2017Reviewed by: Nevaeh Lomeli Store Administrator - Fully AssessedReason for Visit: ER F/U [41]Primary Visit Diagnosis:Groin pain, left [R10.32] Other Visit Diagnoses:History of left inguinal hernia repair [Z98.890, Z87.19] Diverticulitis of large intestine with perforation without abscess or bleeding [K57.20] Comment:? finding on CT scan; tolerating ATBs so will complete the course.Order(s):CONSULT TO GENERAL SURGERY [9058] Order #: [id number]: 1Prescriptions as of 02/20/2017 Sig:X TRAMADOL 50 MG TABLET Take 1 tablet by mouth every * DIAZEPAM 5 MG TABLET Take 1 tablet by mouth every * CIPROFLOXACIN 500 MG TABLET Take 1 tablet by mouth twice * METRONIDAZOLE 500 MG TABLET Take 1 tablet by mouth twice * AMITRIPTYLINE 50 MG TABLET Take 1 tablet by mouth daily * NICOTINE 21 MG/24 HR DAILY TR* Apply 1 Patch as directed jeff*Problem List As Of Date 02/20/2017 Noted Resolved Crushing injury of hand(s) [S67.20XA] INVALID FOR*04/06/2015 INGUINAL HERNIA, UNILATERAL W/O GANGRENE/OBSTRU*INVALID FOR*05/09/2013 Migraine headache without aura [G43.009] More... Family history of colon cancer [Z80.0] INVALID FOR* More... Tobacco use disorder [F17.200] INVALID FOR* Dysplastic polyp of colon [K63.5] INVALID FOR* Other instructions from your clinician: May take Gas X 80 to 125mg 4 times daily to prevent or treat gas pain.Prescriptions ordered this encounter Disp Refills Start End TRAMADOL 50 MG TABLET 42 t* 0 02/20/2017 02/25/2017 Class: Print RX Route: ORAL Sig: Take 1 tablet by mouth every 4 hours as needed for Pain for up to 7 days.Disposition: Return if symptoms worsen or fail to improve.Follow-up and Disposition History RecordedLetter TextWoosterDepartment of Internal MedicineMackenzie Colunga MD[address], [place] [address]Axswi: [facility] 2016Lawrjoel Gerda BernalDOB: 1970MRN: [id number] whom it may concern:My patient, Edda Bernal, was seen today for a doctor's appointment.Please excuse from work missed today for doctor's appointment.Note that may return to work with restriction on Thursday, February 23, 2017.Restriction is for no heavy lifting (no more than 25 pounds). Thisrestriction is to remain in place until further notice after re-evaluation.Sincerely,Mackenzie Colunga MDEncounter Number: [id number] Status:Closed by MACKENZIE COLUNGA MD on 03/31/17 Normal [facility] PROGRESSon 02-20-2017 PROGRESS HNO ID: [id number] thor: Mackenzie Maloneyervice: (none)Author Type: PhysicianType: Progress NotesFiled: 03/31/2017 12:49 AMNote Text:Patient presents with:ER F/USUBJECTIVE:Edda Bernal is a 46 year old year old gentleman here today for ERfollow up appointment for review of medical conditions.Noted symptoms consistent with hernia pain as had before.Thursday evening with what though was gas pain--LLQ/groin area.Went to ER ThursdayFeb 18.Pain in LLQ to left flank.CT scan was done.MRI was ordered but going to be a long wait.PAST MEDICAL HISTORYDiagnosis Date- Diverticulosis of both small and large intestine without perforation orabscess without bleeding 10/02/2008- Diverticulosis of colon (without mention of hemorrhage) Diverticulosis- Family history of colon cancer 10/10/2008- Migraine headache without auraCurrent Outpatient Prescriptions:diazePAM (VALIUM) 5 mg tablet Take 1 tablet by mouth every 8 hours asneeded (Pain or Muscle spasms).ciprofloxacin HCl (CIPRO) 500 mg tablet Take 1 tablet by mouth twice dailyfor 7 days.metroNIDAZOLE (FLAGYL) 500 mg tablet Take 1 tablet by mouth twice dailyfor 14 days.amitriptyline (ELAVIL) 50 mg tablet Take 1 tablet by mouth daily atbedtime. This replaces previous Rx, (dose increase)nicotine (NICODERM) 21 mg/24 hr Apply 1 Patch as directed every 24 hours.May substitute genericNo current facility-administered medications for this visit.OBJECTIVE:BP 120/76 Pulse 64 Temp 36.4 ?C (97.5 ?F) (Temporal Artery) Resp 16 Wt 81.6 kg (180 lb) SpO2 99% BMI 28.19 kg/r2Sqxdyav is alert, oriented times 3, no apparent distress, affect isbright, reactive.Heart: Regular rate, rhythm, no murmurs, gallops, rubs.Lungs: Clear to auscultation, bilaterally, breathing non labored.Ext: No cyanosis, clubbing, or edema. Noted tender LLQ/left groin area.Seems to be more full on the left groin area. Noted pain with checking inscrotal area but could not feel a mass with coughing. No rebound orguarding. No mass.Patient Name Sex Edda Carrera ([id number]) Male ?9:03 AM - Interface, Results InResultsEXAM TITLE: CT OF THE ABDOMEN AND PELVIS WITH INTRAVENOUS CONTRAST?DATE:02/18/2017 08:30?COMPARISON: None.?CLINICAL INDICATION/HISTORY: Left lower quadrant abdominal pain?CT Radiation dose: Integrated Dose-length product (DLP) for this visit =?1564mGy*cm.CT Dose Reduction Employed: Automated exposure control (AEC) was used.?TECHNIQUE: Following the administration of 150 cc of Visipaque 270intravenouscontrast axial images were obtained of the abdomen and pelvis in a singleportal-venous phase. ?Oral contrast was not administered.?FINDINGS:?Includ ed lung bases and lower thorax: UnremarkableIncluded osseous structures: Unremarkable?Liver: Small cyst within the left hepatic lobe. ?Liver is otherwiseunremarkable.Gallblad gregor and extrahepatic bile duct: Unremarkable. ?No ductaldilatation isseen.Pancreas and spleen: UnremarkableAdrenal glands: Unremarkable?Kidneys: Symmetric in size and enhancement pattern. ?No evidence ofhydronephrosis. ?No renal calculi are seen. ?No focal mass lesions.Ureters: ?No abnormal dilatation or obstructing calculus is seen.Urinary Bladder: Urinary bladder is incompletely distended. ?There may bemildwall thickening.Pelvic Organs: ?Unremarkable?Stomach and small bowel: Unremarkable. ?No evidence of obstruction oracuteinflammatory process.Large bowel: There is mild diverticulosis of the sigmoid colon. ?There isquestion?mild inflammation at the junction of the left and sigmoid colon which mayindicate mild acute diverticulitis. ?There is no evidence of abscessformation orperforation.?There is a 2.5 cm density adjacent to the left internal inguinal ring.?Thereappears to been prior left inguinal hernia repair. ?No evidence ofrecurrenthernia.Appendix: The appendix is not visualized, however there is no dilatedtubularstructure or inflammatory change within the right lower quadrant/cecalregionwhich would indicate acute appendicitis.?No peritoneal free air, free fluid or lymphadenopathy is seen.The aorta is normal in caliber.?IMPRESSION:??1. ?Diverticulosis of the sigmoid colon. ?There is suspicion of mild acutediverticulitis at the junction of the left and sigmoid colon. ?No abscessformation or perforation.??2. ?There is questionable diffuse mild wall thickening of the urinarybladder. ?This could be artifactual. ?Correlate with urinalysis.ASSESSMENT AND PLAN:Encounter Diagnosis ICD-10-CM1. Groin pain, left R10.32 CONSULT TO GENERAL SURGERY2. History of left inguinal hernia repair Z98.890 CONSULT TO [facility] Z87.19The person who did second hernia repair retired.Letter for work given.Further evaluation and treatment as indicated.Discussed red flag symptoms that would be indications of need for ERvisit.Over 50% of this at least 15 minute visit was spent counseling about aboveissues.Mackenzie Colunga MD Normal [facility] CHEST 2 VIEWSon 02-18-2017 CHEST 2 VIEWS Performed at [facility] APPROVED BY: Rufus Wilburn MD EXAMINATION: CHEST RADIOGRAPH (2 VIEW FRONTAL & LATERAL) Indication: Left-sided back painM: XC2_3Comparison: CT abdomen done the same day RESULT: Lines, tubes, and devices: None. Lungs and pleura: No consolidation. No lung mass. No pleural effusion. Cardiomediastinal silhouette: Normal cardiomediastinal silhouette. Other: Bony thorax is unremarkable for the patient's age. IMPRESSION: No acute radiographic abnormality. Normal [facility] CT ABDOMEN AND PELVIS WITH C ONTRASTon 02-18-2017 CT ABDOMEN AND PELVIS WITH CONTRAST Performed at [facility] APPROVED BY: Rufus Wilburn MD EXAM TITLE: CT OF THE ABDOMEN AND PELVIS WITH INTRAVENOUS CONTRAST DATE:02/18/2017 08:30 COMPARISON: None. CLINICAL INDICATION/HISTORY: Left lower quadrant abdominal pain CT Radiation dose: Integrated Dose-length product (DLP) for this visit = 1564 mGy*cm.CT Dose Reduction Employed: Automated exposure control (AEC) was used. TECHNIQUE: Following the administration of 150 cc of Visipaque 270 intravenous contrast axial images were obtained of the abdomen and pelvis in a single portal-venous phase. Oral contrast was not administered. FINDINGS: Included lung bases and lower thorax: UnremarkableIncluded osseous structures: Unremarkable Liver: Small cyst within the left hepatic lobe. Liver is otherwise unremarkable.Gallbladder and extrahepatic bile duct: Unremarkable. No ductal dilatation is seen.Pancreas and spleen: UnremarkableAdrenal glands: Unremarkable Kidneys: Symmetric in size and enhancement pattern. No evidence of hydronephrosis. No renal calculi are seen. No focal mass lesions.Ureters: No abnormal dilatation or obstructing calculus is seen.Urinary Bladder: Urinary bladder is incompletely distended. There may be mild wall thickening.Pelvic Organs: Unremarkable Stomach and small bowel: Unremarkable. No evidence of obstruction or acute inflammatory process.Large bowel: There is mild diverticulosis of the sigmoid colon. There is question mild inflammation at the junction of the left and sigmoid colon which may indicate mild acute diverticulitis. There is no evidence of abscess formation or perforation. There is a 2.5 cm density adjacent to the left internal inguinal ring. There appears to been prior left inguinal hernia repair. No evidence of recurrent hernia.Appendix: The appendix is not visualized, however there is no dilated tubular structure or inflammatory change within the right lower quadrant/cecal region which would indicate acute appendicitis. No peritoneal free air, free fluid or lymphadenopathy is seen.The aorta is normal in caliber. IMPRESSION: 1. Diverticulosis of the sigmoid colon. There is suspicion of mild acute diverticulitis at the junction of the left and sigmoid colon. No abscess formation or perforation. 2. There is questionable diffuse mild wall thickening of the urinary bladder. This could be artifactual. Correlate with urinalysis. Normal [facility] Comprehensive Panelon 2016 Albumin 3.9 g/dL Normal 3.4-5.0 [facility] Comment on above: Performed By: #### L P14 ####[address] [address] Alkaline phosphatase (ALP) 74 U/L Normal 46-116 [facility] Comment on above: Performed By: #### L P14 ####[address] [address] ALT-SGPT Blood 26 U/L Normal 12-78 [facility] Comment on above: Performed By: #### L P14 ####[address] [address] Anion gap 9 mmol/L Normal 8-20 [facility] Comment on above: Performed By: #### L P14 ####[facility] [place], [place] [address] AST-SGOT Blood 19 U/L Normal 15-37 [facility] Comment on above: Performed By: #### L P14 ####[address] [address] Bilirubin Ql (U) 0.4 mg/dL Normal 0.2-1.0 [facility] Comment on above: Performed By: #### L P14 ####[place] [address] BUN (urea nitrogen) 12 mg/dL Normal 7-25 [facility] Comment on above: Performed By: #### L P14 ####[place] [address] BUN/Creatinine Ratio 14 mg/mg Normal 10-20 [facility] Comment on above: Performed By: #### L P14 ####[place] [address] Calcium 8.8 mg/dL Normal 8.5-10.1 [facility] Comment on above: Performed By: #### L P14 ####[place] [address] Chloride 103 mmol/L Normal 98-107 [facility] Comment on above: Performed By: #### L P14 ####[place] [address] CO2 28 mmol/L Normal 21-32 [facility] Comment on above: Performed By: #### L P14 ####[place] [address] Creatinine 0.86 mg/dL Normal 0.67-1.17 [facility] Comment on above: Performed By: #### L P14 ####[place] [address] Glucose mass conc 109 mg/dL High 70-99 [facility] Comment on above: Performed By: #### L P14 ####[place] [address] Potassium molar conc 4.1 mmol/L Normal 3.5-5.1 [facility] Comment on above: Performed By: #### L P14 ####[facility] [place] [address] Protein 7.0 g/dL Normal 6.4-8.2 [facility] Comment on above: Performed By: #### L P14 ####[facility] [place] [address] Sodium 136 mmol/L Normal 136-145 [facility] Comment on above: Performed By: #### L P14 ####[place] [address] ED NOTEon 02-18-2017 ED NOTE HNO ID: [id number] Author: Jayla GarrettRn) JUDE Mckee Service: Emergency Medicine Author Type: Registered Nurse Type: ED Notes Filed: 02/18/2017 9:09 AM Note Text: Urine specimen obtained and sent. Pt voided 150 ml clear yellow urine Normal [facility] ED NOTE HNO ID: [id number] thor: Jayla Norton (Rn) DOREEN Mckeeervice: Emergency MedicineAuthor Type: Registered NurseType: ED NotesFiled: 02/18/2017 7:10 AMNote Text:Left lower back pain for 2 days, denies injuryReports radiation to left thighDenies incontinence Normal [facility] ED PROV NOTEon 02-18-2017 ED PROV NOTE HNO ID: [id number] thor: LOUIE Guerreroervice: Emergency MedicineAuthor Type: PhysicianType: ED Provider NotesFiled: 02/18/2017 11:54 AMNote Text:ED Provider NotePatient Name: Edda BernalMRN: [id number] DATE: 02/18/17HistoryPatient presents with:Back PainHPI Comments: Has never had back pain before. Does not feel like musclecramps. Only lying flat and completely still even partially controls thepain. No rash.Patient is a 46 year old male presenting with back pain.History provided by: Patient and spouseLanguage chief mate used: NoBack PainLocation: Lumbar spineQuality: StabbingRadiates to: LLQ.Pain severity: SeverePain is: Same all the timeOnset quality: Gradual (Thursday evening (this is Thursday morning))Timing: ConstantProgression: WorseningChronicity: NewContext: pedestrian accidentContext: not falling, not jumping from heights, not lifting heavy objects,not MVA, not occupational injury, not physical stress, not recent illness,not recent injury and not twistingRelieved by: NothingWorsened by: Touching, twisting, movement and bendingIneffective treatments: NSAIDs and bed restAssociated symptoms: abdominal pain and leg painAssociated symptoms: no abdominal swelling, no bladder incontinence, nobowel incontinence, no chest pain, no dysuria, no fever, no headaches, nonumbness, no paresthesias, no pelvic pain, no perianal numbness, notingling and no weaknessRisk factors: no hx of cancer, no hx of osteoporosis, no lack of exercise,not obese and no recent surgeryPAST MEDICAL HISTORYDiagnosis Date- Diverticulosis of both small and large intestine without perforation orabscess without bleeding 10/02/2008- Diverticulosis of colon (without mention of hemorrhage) Diverticulosis- Family history of colon cancer 10/10/2008- Migraine headache without auravicodin makes migraine headaches worse and percocet makes head feel oddPAST SURGICAL HISTORYProcedure Laterality Date- APPENDECTOMY- COLONOSCOP W/ OR W/O [facility] SPEC 10/10/08 Sigmoid diverticulosis- COLONOSCOP W/ OR W/O [facility] SPEC 05/10/14 Colonoscopy- COLONOSCOP W/ OR W/O [facility] SPE[facility] 06/25/15 Colonoscopy- EGD W/O OR W/BRUSH/WASH 05/10/14 EGD- LAP UMBILICAL HERNIA REPAIR 2008- REPAIR ING HERNIA,5+Y/O,REDUCIBL 10-12-08 open left- SPINAL PUNCTURE FOR MIGRAINESFAMILY HISTORYProblem Relation Age of Onset- KIDNEY STONES [Other] [OTHER] Mother- Colon Cancer Father diagnosed in early 50's- Diabetes Father 60 Type II- Seizures BrotherSocial HistorySocial History Main Topics- Smoking status: Current Every Day Smoker Packs/day: 1.00 Years: 20.00 Types: Cigarettes- Smokeless tobacco: Never Used Comment: discussed methods of quitting- Alcohol use No- Drug use: No- Sexual activity: Yes Partners: FemaleALLERGIESAllergen Reactions- Augmentin [Amoxicil* Rash- Chantix [Vareniclin* Itching, Shortness of Breath- Hydrocodone-Acetami* Mental Status Change- Peanuts GI Upset- Penicillin UnknownReview of SystemsConstitutional: Positive for activity change. Negative for chills,diaphoresis and fever.Eyes: Negative.Respiratory: Positive for cough.Cardiovascular: Negative for chest pain.Gastrointestinal: Positive for abdominal pain. Negative for bowelincontinence, constipation, diarrhea, nausea and vomiting.Endocrine: Negative for polyuria.Genitourinary: Positive for flank pain. Negative for bladder incontinence,dysuria, frequency, hematuria and pelvic pain.Musculoskeletal: Positive for back pain and gait problem.Skin: Negative for rash.Allergic/Immunologic: Negative for immunocompromised state.Neurological: Negative for tingling, weakness, numbness, headaches andparesthesias.Psychiatric/Be havioral: Negative.Physical ExamBP 116/77 Pulse 51 Temp (Src) 97.6 (Oral) Resp 16 Ht 5' 7 (1.70m) Wt 175 lb (79.4kg) SpO2 97% BMI 27.40 kg/(m2).Physical ExamConstitutional: He is oriented to person, place, and time. He appearswell-developed and well-nourished. Non-toxic appearance. He appears ill.He appears distressed.HENT:Head: Normocephalic and atraumatic.Eyes: Pupils are equal, round, and reactive to light. No scleral icterus.Neck: Neck supple.Cardiovascular: Normal rate and normal heart sounds.Pulmonary/Chest: Effort normal. He has rhonchi.Abdominal: Normal appearance and bowel sounds are normal. He exhibits noshifting dullness, no distension and no abdominal bruit. There is nohepatosplenomegaly. There is tenderness in the left lower quadrant. Thereis rebound and CVA tenderness.sgical scars for periumbilical and left inguinalGenitourinary: Penis normal. Right testis shows no tenderness. Left testisshows no tenderness.Musculoskeletal: Cervical back: Normal. Thoracic back: Normal. Lumbar back: He exhibits tenderness, bony tenderness and pain. Heexhibits no swelling, no edema and no spasm. Back:Straight leg raising of the right leg is normal. Flexion of the hip andknee on the left causes severe LLQ and lumbar pain that does not radiate . There is a positive heel tapLymphadenopathy: Right: No inguinal adenopathy present. Left: No inguinal adenopathy present.Neurological: He is alert and oriented to person, place, and time. Hedisplays no tremor. He exhibits normal muscle tone. Gait abnormal.Skin: Skin is warm, dry and intact. No rash noted. He is not diaphoretic.No pallor.Psychiatric: He has a normal mood and affect. His speech is normal andbehavior is normal. Judgment and thought content normal. Cognition andmemory are normal.Nursing note and vitals reviewed.Diagnostic TestingED Labs Ordered and ReviewedCOMPREHENSIVE METABOLIC PANEL (AK,AV,EU,FV,HL,JUSTO,MM,SP) - Abnormal;Notable for the following: Result Value Ref Range Glucose 109 (*) 70 - 99 mg/dL All other components within normal limitsCBC + AUTO DIFF (AK,AV,EU,FV,HL,JUSTO,MM,SP) - Abnormal; Notable for thefollowing: Eosinophil # 0.43 (*) 0.00 - 0.41 thou/cmm All other components within normal limitsURINALYSIS (AV,EU,FV,HL,JUSTO,MM,SP)SED RATE ERYTHROCYTE (AK,AV,EU,FV,HL,JUSTO,MM,SP)MDRD GFRDiscussed MRI with radiology to order and again because of delay [id number] with familyPatient sleeping comfortablyProceduresMedical Decision Making / ED CourseED Coursepatient with puzzling constellation of symptoms. Although the ESR and WBCare normal, I am concerned about the severe midline lumbar tenderness topalpation. MRI Is available and believe in order to rule out mets ordestructive inflammatory process he needs the MRI.No significant relief after IV narcNo significant relief after IV ofimevTrial of valiumWill treat the diverticulitisAt 1130 the patient became irate. Yelled at me that I and the hospitalwere lolly gagging around, just letting me lay here, you ain't foundnothing on a CT scan and all them blood tests. Don't you people knowwhat your doing? I want to get out of here.Attempted to explain but he shouted over me. Wanted me to take ascheduled patient out of the MRI because he needed to go get something toeat. The patient appears capable of understanding all the risks andproblems that we are evaluating.Given normal vitals and labs, I believe MRI is no longer emergently neededand can be cancelled. I have advised the patient that by not choosing towait 45 more minutes, if he needs an MRI he might have to wait weeks ormonths.Encounter Diagnosis ICD-10-CM1. Acute midline low back pain with left-sided sciatica M54.422. Diverticulitis of large intestine without perforation or abscesswithout bleeding K57.32PlanThe Patient was DISCHARGED: Counseled patient regarding lab results ANDradiology results AND suspected diagnosis AND need for follow-up. Dischargedhome with verbal and written instructions. They were instructed to returnas needed for persistent or worsening symptoms or any new concerns.Condition at time of disposition: improved and stableSIGNATURE: Diane Guerrero MD02/18/17 1154 Normal [facility] Hemogram/Diffon 02-18-2017 Basophils Auto #/vol (Bld) 0.05 thou/cmm Normal 0.00-0.08 [facility] Comment on above: Performed By: #### L CBCD ####[address] [address] Basophils/100 WBC Auto (Bld) 0.5 % Normal [facility] Comment on above: Performed By: #### L CBCD ####[address] [address] Eosinophils 0.43 thou/cmm High 0.00-0.41 [facility] Comment on above: Performed By: #### L CBCD ####[address] [address] Eosinophils/100 leukocytes 4.6 % Normal [facility] Comment on above: Performed By: #### L CBCD ####[address] [address] Erythrocyte distribution width Auto Ratio (RBC) 14.2 % Normal 11.5-15.9 [facility] Comment on above: Performed By: #### L CBCD ####[address] [address] Erythrocytes (RBC) 5.00 mil/cmm Normal 4.60-6.20 [facility] Comment on above: Performed By: #### L CBCD ####[address] [address] Hematocrit (HCT) 44.7 % Normal 42.0-52.0 [facility] Comment on above: Performed By: #### L CBCD ####[address] [address] Hemoglobin mass conc (Bld) 15.2 g/dL Normal 14.0-18.0 [facility] Comment on above: Performed By: #### L CBCD ####[place] [address] Lymphocytes 2.57 thou/cmm Normal 1.50-3.65 [facility] Comment on above: Performed By: #### L CBCD ####[address] [address] Lymphocytes/100 leukocytes 27.6 % Normal [facility] Comment on above: Performed By: #### L CBCD ####[address] [address] MCH 30.4 pg Normal 27.0-31.0 [facility] Comment on above: Performed By: #### L CBCD ####[address] [address] MCHC mass conc (RBC) 34.0 % Normal 32.0-36.0 [facility] Comment on above: Performed By: #### L CBCD ####[address] [address] MCV 89.4 fL Normal 80.0-94.0 [facility] Comment on above: Performed By: #### L CBCD ####[address] [address] Monocytes 0.86 thou/cmm Normal 0.20-1.00 [facility] Comment on above: Performed By: #### L CBCD ####[facility] [place], [place] [address] Monocytes/100 leukocytes 9.3 % Normal [facility] Comment on above: Performed By: #### L CBCD ####[facility] [place], [place] [address] Platelet mean volume (PMV) 9.0 fL Normal 7.1-10.5 [facility] Comment on above: Performed By: #### L CBCD ####[facility] [place], [place] [address] Platelets 299 thou/cmm Normal 150-400 [facility] Comment on above: Performed By: #### L CBCD ####[facility] [place], [place] [address] Seg Neutrophil 58.0 % Normal [facility] Comment on above: Performed By: #### L CBCD ####[address] [address] Seg. Neut.# 5.39 thou/cmm Normal 3.00-5.67 [facility] [facility] Comment on above: Performed By: #### L CBCD ####[address] [address] WBC (Leukocytes) 9.3 thou/cmm Normal 4.8-10.8 [facility] Comment on above: Performed By: #### L CBCD ####[address] [address] LUMBOSACRAL SPINE 2 OR 3 VIAbhijit [facility] [place] 02-18-2017 LUMBOSACRAL SPINE 2 OR 3 VIEWS Performed at [facility] APPROVED BY: Rufus Wilburn MD EXAM TITLE: LUMBAR SPINE 3 VIEWS DATE:02/18/2017 08:02 COMPARISON: CT abdomen done the same day CLINICAL INDICATION/HISTORY: Constant left-sided back pain TECHNIQUE: AP, lateral, and L5-S1 spot images were obtained FINDINGS: Five non-rib bearing lumbar type vertebral bodies. No compression fracture is seen.No subluxations are seen. No significant disk space narrowing is seen.Included portions of the sacrum and sacroiliac joints are unremarkable.No abnormal abdominal calcifications are seen. IMPRESSION: Unremarkable lumbar spine. No acute osseous abnormality is seen. If the patient's symptoms persist consider MRI. Normal [facility] MDRD eGFRon 02-18-2017 eGFR (non-black) mL/min/{1.73_m2} Normal >60mL/m in/ 1.73m2 [facility] Comment on above: Result Comment: If t he patient is , multiply the result by 1.210. Performed By: #### L GFR ####[place] [address] Macroscopic Urinalysison Bilirubin Urine Negative Normal Negative [facility] Comment on above: Performed By: #### L MACU ####[place] [address] Hemoglobin,Urine Negative Normal Negative [facility] Comment on above: Performed By: #### L MACU ####[place] [address] Ketone Urine Negative Normal Negative [facility] Comment on above: Performed By: #### L MACU ####[place] [address] Nitrites Urine Negative Normal Negative [facility] Comment on above: Performed By: #### L MACU ####[address] [address] Protein Urine Negative Normal Negative [facility] Comment on above: Performed By: #### L MACU ####[place] [address] Specific [place], Ur 1.010 Normal 1.005-1.03 0 [facility] Comment on above: Performed By: #### L MACU ####[place] [address] Urine, appearance CLEAR Normal [facility] Comment on above: Performed By: #### L MACU ####[place] [address] Urine, color YELLOW Normal [facility] Comment on above: Performed By: #### L MACU ####[place] [address] Urine, glucose presence Negative Normal Negative [facility] Comment on above: Performed By: #### L MACU ####[facility] [place] [address] Urine, pH 7.0 [pH] Normal 5.0-8.0 [facility] Comment on above: Performed By: #### L MACU ####[place] [address] Urobilinogen,Ur 0.2 EU/dL Normal 0.0-1.0 [facility] Comment on above: Performed By: #### L MACU ####[place] [address] WBC (Leukocytes) Negative Normal Negative [facility] Comment on above: Performed By: #### L MACU ####[place] [address] Sed Rateon 02-18-2017 Sed Rate 1 mm/hr Normal 0-15 [facility] Comment on above: Performed By: #### L ESR ####[place] [address] Vital Signs Date Time Vital Sign Value Performing Clinician Facility 10-17-2024 08:43-0400 Body height 170.[address] Mackenzie Colunga MD Work Phone: 1(890)585-854884 [place] [address] 10-17-2024 08:43-0400 Body mass index (BMI) [Ratio] 26.9 kg/m2 Dr. Mackenzie Colunga MD Work Phone: 4(690)889-109284 [place] [address] 10-17-2024 08:43-0400 Body weight 78.[address] Mackenzie Colunga MD Work Phone: 9(719)991-556545 [place] [address] 10-17-2024 08:43-0400 Diastolic blood pressure 77 mm[Hg] Dr. Mackenzie Colunga MD Work Phone: 6(304)163-661245 [place] [address] 10-17-2024 08:43-0400 Heart rate 88 /min Dr. Mackenzie Colunga MD Work Phone: 3(025)700-795184 [place] [address] 10-17-2024 08:43-0400 Respiratory rate 18 /min Dr. Mackenzie Colunga MD Work Phone: 0(499)280-181745 [place] [address] 10-17-2024 08:43-0400 SaO2% (BldA) [Mass fraction] 98 % Dr. Mackenzie Colunga MD Work Phone: 1(545)263-456545 [place] [address] 10-17-2024 08:43-0400 Systolic blood pressure 124 mm[Hg] Dr. Mackenzie Colunga MD Work Phone: 6(434)701-013945 [place] [address] 10-11-2024 14:44-0400 Body height 170.[address] Mackenzie Colunga MD Work Phone: 2(465)747-258345 [place] [address] 10-11-2024 14:44-0400 Body mass index (BMI) [Ratio] 26.9 kg/m2 Dr. Mackenzie Colunga MD Work Phone: 7(506)857-512445 [place] [address] 10-11-2024 14:44-0400 Body weight 78.[address] Mackenzie Colunga MD Work Phone: 5(340)725-031845 [place] [address] 10-11-2024 14:44-0400 Diastolic blood pressure 89 mm[Hg] Dr. Mackenzie Colunga MD Work Phone: 9(289)286-415145 [place] [address] 10-11-2024 14:44-0400 Heart rate 77 /min Dr. Mackenzie Colunga MD Work Phone: 0(826)279-862545 [place] [address] 10-11-2024 14:44-0400 Respiratory rate 17 /min Dr. Mackenzie Colunga MD Work Phone: 3(814)928-478145 [place] [address] 10-11-2024 14:44-0400 SaO2% (BldA) [Mass fraction] 97 % Dr. Mackenzie Colunga MD Work Phone: 2(210)258-074945 [place] [address] 10-11-2024 14:44-0400 Systolic blood pressure 129 mm[Hg] Dr. Mackenzie Colunga MD Work Phone: 3(863)123-848945 [place] [address] 09-22-2024 12:28-0400 Body height 170.[address] Mackenzie Colunga MD Work Phone: 1(178)484-292045 [place] [address] 09-22-2024 12:28-0400 Body mass index (BMI) [Ratio] 26.6 kg/m2 Dr. Mackenzie Colunga MD Work Phone: 1(222)250-265345 [place] [address] 09-22-2024 12:28-0400 Body temperature 97 [degF] Dr. Mackenzie Colunga MD Work Phone: 7(652)511-175345 [place] [address] 09-22-2024 12:28-0400 Body weight 77.[address] Mackenzie Colunga MD Work Phone: 7(004)938-802645 [place] [address] 09-22-2024 12:28-0400 Diastolic blood pressure 78 mm[Hg] Dr. Mackenzie Colunga MD Work Phone: 5(841)892-018045 [place] [address] 09-22-2024 12:28-0400 Heart rate 52 /min Dr. Mackenzie Colunga MD Work Phone: 6(152)813-102745 [place] [address] 09-22-2024 12:28-0400 Respiratory rate 12 /min Dr. Mackenzie Colunga MD Work Phone: 0(109)592-142145 [place] [address] 09-22-2024 12:28-0400 SaO2% (BldA) [Mass fraction] 95 % Dr. Mackenzie Colunga MD Work Phone: 6(829)169-926345 [place] [address] 09-22-2024 12:28-0400 Systolic blood pressure 124 mm[Hg] Dr. Mackenzie Colunga MD Work Phone: 4(569)987-103945 [place] [address] 08-11-2024 08:27-0400 Body mass index (BMI) [Ratio] 27.1 kg/m2 Dr. Mackenzie Colunga MD Work Phone: 5(002)405-791145 [place] [address] 08-11-2024 08:27-0400 Body temperature 96.9 [degF] Dr. Mackenzie Colunga MD Work Phone: 6(401)116-725145 [place] [address] 08-11-2024 08:27-0400 Body weight 78.[address] Mackenzie Colunga MD Work Phone: 2(561)813-985745 [place] [address] 08-11-2024 08:27-0400 Diastolic blood pressure 78 mm[Hg] Dr. Mackenzie Colunga MD Work Phone: 2(985)481-138345 [place] [address] 08-11-2024 08:27-0400 Heart rate 78 /min Dr. Mackenzie Colunga MD Work Phone: 4(441)771-933145 [place] [address] 08-11-2024 08:27-0400 Respiratory rate 16 /min Dr. Mackenzie Colunga MD Work Phone: 3(544)374-951945 [place] [address] 08-11-2024 08:27-0400 SaO2% (BldA) [Mass fraction] 92 % Dr. Mackenzie Colunga MD Work Phone: 9(935)753-829745 [place] [address] 08-11-2024 08:27-0400 Systolic blood pressure 118 mm[Hg] Dr. Mackenzie Colunga MD Work Phone: 1(728)684-702045 [place] [address] 07-12-2024 15:53-0400 Body mass index (BMI) [Ratio] 27.9 kg/m2 Dr. Mackenzie Colunga MD Work Phone: 0(430)356-231145 [place] [address] 07-12-2024 15:53-0400 Body temperature 96.5 [degF] Dr. Mackenzie Colunga MD Work Phone: 5(725)915-960745 [place] [address] 07-12-2024 15:53-0400 Body weight 80.[address] Mackenzie Colunga MD Work Phone: 7(892)284-220145 [place] [address] 07-12-2024 15:53-0400 Diastolic blood pressure 78 mm[Hg] Dr. Mackenzie Colunga MD Work Phone: 4(913)496-373345 [place] [address] 07-12-2024 15:53-0400 Heart rate 68 /min Dr. Mackenzie Colunga MD Work Phone: 2(026)573-387045 [place] [address] 07-12-2024 15:53-0400 Respiratory rate 12 /min Dr. Mackenzie Colunga MD Work Phone: 8(761)406-647945 [place] [address] 07-12-2024 15:53-0400 SaO2% (BldA) [Mass fraction] 94 % Dr. Mackenzie Colunga MD Work Phone: 4(655)914-313445 [place] [address] 07-12-2024 15:53-0400 Systolic blood pressure 122 mm[Hg] Dr. Mackenzie Colunga MD Work Phone: 9(793)983-541745 [place] [address] 06-22-2024 15:39-0500 Body mass index (BMI) [Ratio] 27.9 kg/m2 Dr. Mackenzie Colunga MD Work Phone: 1(631)965-971845 [place] [address] 06-22-2024 15:39-0500 Body temperature 97.7 [degF] Dr. Mackenzie Colunga MD Work Phone: 6(215)854-816145 [place] [address] 06-22-2024 15:39-0500 Body weight 80.[address] Mackenzie Colunga MD Work Phone: 7(963)037-555145 [place] [address] 06-22-2024 15:39-0500 Diastolic blood pressure 82 mm[Hg] Dr. Mackenzie Colunga MD Work Phone: 3(117)709-015745 [place] [address] 06-22-2024 15:39-0500 Heart rate 71 /min Dr. Mackenzie Colunga MD Work Phone: 7(223)113-042545 [place] [address] 06-22-2024 15:39-0500 Respiratory rate 16 /min Dr. Mackenzie Colunga MD Work Phone: 6(885)829-856545 [place] [address] 06-22-2024 15:39-0500 SaO2% (BldA) [Mass fraction] 94 % Dr. Mackenzie Colunga MD Work Phone: 4(367)797-076045 [place] [address] 06-22-2024 15:39-0500 Systolic blood pressure 112 mm[Hg] Dr. Mackenzie Colunga MD Work Phone: 7(497)771-652245 [place] [address] 02-18-2023 12:03-0400 Diastolic Blood Pressure Non-Invasive [address] JAJA BARON DO [facility] 02-18-2023 12:03-0400 Heart rate 72 /min DR JAJA BARON DO [facility] 02-18-2023 12:03-0400 Respiratory rate 16 /min DR JAJA BARON DO [facility] 02-18-2023 12:03-0400 Systolic Blood Pressure Non-Invasive [address] JAJA BARON DO [facility] 02-18-2023 11:14-0400 Diastolic Blood Pressure Non-Invasive [address] JAJA BARON DO [facility] 02-18-2023 11:14-0400 Heart rate 74 /min DR JAJA BARON DO [facility] 02-18-2023 11:14-0400 Respiratory rate 17 /min DR JJAA BARON DO [facility] 02-18-2023 11:14-0400 Systolic Blood Pressure Non-Invasive [address] JAJA BARON DO [facility] 02-18-2023 09:16-[address] JAJA BARON DO [facility] 02-18-2023 09:16-0400 Diastolic Blood Pressure Non-Invasive [address] JAJA BARON DO [facility] 02-18-2023 09:16-0400 Heart rate 76 /min DR JAJA BARON DO [facility] 02-18-2023 09:16-0400 Reason For Taking VItal Signs DR JAJA BARON DO [facility] 02-18-2023 09:16-0400 Respiratory rate 15 /min DR JAJA BARON DO [facility] 02-18-2023 09:16-0400 Systolic Blood Pressure Non-Invasive [address] JAJA BARON DO [facility] 02-18-2023 07:59-[address] JAJA BARON DO [facility] 02-18-2023 07:59-[address] JAJA BARON DO [facility] 02-18-2023 07:59-0400 Body height 170.[address] JAJA BARON DO [facility] 02-18-2023 07:59-0400 Body temperature 98.6 [degF] DR JAJA BARON DO [facility] 02-18-2023 07:59-0400 Body weight 83.[address] JAJA BARON DO [facility] 05-12-2021 20:45-0500 Body height 170.2 cm GAB CHAMBERLAIN MD [facility] 05-12-2021 20:45-0500 Body temperature 98.96 [degF] GAB CHAMBERLAIN MD [facility] 05-12-2021 20:45-0500 Body weight 85 kg GAB CHAMBERLAIN MD [facility] 05-12-2021 20:45-0500 Diastolic blood pressure 74 mm[Hg] GAB CHAMBERLAIN MD [facility] 05-12-2021 20:45-0500 Heart rate 87 /min GAB CHAMBERLAIN MD [facility] 05-12-2021 20:45-0500 Respiratory rate 24 /min GAB CHAMBERLAIN MD [facility] 05-12-2021 20:45-0500 Systolic blood pressure 127 mm[Hg] GAB CHAMBERLAIN MD [facility] 03-14-2021 17:23-0500 Respiratory rate 18 /min [facility] 03-14-2021 15:36-0500 Body temperature 98.01 [degF] [facility] 03-14-2021 15:36-0500 Diastolic blood pressure 82 mm[Hg] [facility] 03-14-2021 15:36-0500 Heart rate 75 /min [facility] 03-14-2021 15:36-0500 SaO2% (BldA) [Mass fraction] 95 % [facility] 03-14-2021 15:36-0500 Systolic blood pressure 126 mm[Hg] [facility] Encounters Encounter Date Encounter Type Care Provider Facility Start: 10-26-2024 ambulatory [facility] Facility :[facility] Start: 10-17-2024 ambulatory [facility] Facility :[facility] Start: 10-17-2024 End: 10-17-[address] Mackenzie Colunga MD Work Phone: [facility] Work Phone: Start: 10-17-2024 End: 10-17-2024 Patient encounter procedure Estefani SHAFFER -[facility] Work Phone: Start: 10-11-2024 End: 10-11-[address] Dereje Adams MD -[facility] Work Phone: Start: 10-11-2024 End: 10-11-[address] Mackenzie Colunga MD Work Phone: [facility] Work Phone: Start: 09-29-2024 End: 09-29-[address] Mackenzie Colunga MD Work Phone: [facility] Work Phone: Start: 09-29-2024 End: 09-29-2024 Patient encounter procedure Byron MARTINEZ -[facility] Work Phone: Start: 09-29-2024 End: 09-29-2024 ambulatory Byron MARTINEZ Facility:[facility] Start: 09-23-2024 End: 09-23-[address] Mackenzie Colunga MD Work Phone: [facility] Work Phone: Start: 09-23-2024 End: 09-23-2024 Patient encounter procedure Byron MARTINEZ -[facility] Work Phone: Start: 09-22-2024 End: 09-22-2024 Patient encounter procedure Byron MARTINEZ -[facility] Work Phone: Start: 09-22-2024 End: 09-23-2024 ambulatory Courtney Cotter Facility:[facility] Start: 08-11-2024 End: 08-11-[address] Courtney Cotter MD -[facility] Work Phone: Start: 08-11-2024 End: 08-11-2024 ambulatory Courtney Cotter Facility:[facility] Start: 07-12-2024 End: 07-12-2024 Patient encounter procedure Byron MARTINEZ -[facility] Work Phone: Start: 07-12-2024 End: 07-12-2024 ambulatory Mackenzie Colunga Facility:[facility] Start: 06-22-2024 End: 06-22-2024 Patient encounter procedure Byron MARTINEZ -[facility] Work Phone: Start: 06-22-2024 End: 06-22-2024 ambulatory Mackenzie Colunga Facility:[facility] Start: 05-30-2024 End: 05-30-2024 ambulatory Wang Caldera Facility:[facility] Start: 02-18-2023 End: 02-18-2023 Emergency department patient visit DR JAJA BARON DO Facility:[facility] Start: 02-18-2023 End: 02-18-2023 Emergency department patient visit DR JAJA BARON DO [facility] Start: 10-16-2023 Emergency department patient visit Facility:[facility] Start: 05-12-2021 End: 05-12-2021 Emergency department patient visit GAB CHAMBERLAIN MD [facility] Start: 03-14-2021 End: 03-14-2021 Emergency department patient visit [facility] Emergency Dept Comment on above: Open fracture of tuf t of distal phalanx of finger (Primary Dx); Laceration of left index finger without foreign body without damage to nail, initial encounter Start: 02-25-2017 End: 03-03-2017 Ambulatory CHRISTIANE BARBA [facility] Start: 02-20-2017 End: 03-31-2017 Ambulatory MACKENZIE COLUNGA [facility] Procedures Date Procedure Procedure Detail Performing Clinician Start: 09-29-[address] Mackenzie Colunga MD Work Phone: Start: 09-23-2024 Computed tomography of abdomen and pelvis with contrast Dr. Mackenzie Colunga MD Work Phone: Start: 03-14-2021 Radex fingr minimum 2 views Vladimir Moran PA-C Work Phone: Appendectomy GAB CHAMBERLAIN MD History of repair of inguinal hernia History of left inguinal hernia repair Dr. Mackenzie Colunga MD Work Phone: Comment on above: Remote left inguinal hernia repair with explantation of mesh 15 years ago. By description patient has persistent neuropathic pain but I neither detect a recurrence on exam or on his CT. Remainder of plan as above. History of repair of inguinal hernia History of left inguinal hernia repair Dr. Dereje Adams MD Left inguinal hernia (disorder) GAB CHAMBERLAIN MD Umbilical hernia (disorder) GAB CHAMBERLAIN MD Plan of Treatment Date Care Activity Detail Author Start: 10-11-2024 Patient referral [facility] Work Phone: Start: 09-22-2024 Patient referral [facility] Work Phone: Start: 01-02-2021 Influenza vaccination Flu vaccine (# 1) [facility] Start: 1984 COVID-19 Vaccine (1) COVID-19 Vaccin e (1) [facility] CT Abdomen and Pelvi s W contrast IV [facility] Patient referral [facility] Work Phone: Prothrombin time [facility] Tobacco use cessatio n education [facility] Immunizations Immunization Date Immunization Notes Care Provider Peggy kwok 10-24-2016 tetanus toxoid, redu kristin diphtheria toxoid, and acellular pertussis vaccine, adsorbed [facility] 06-05-2015 pneumococcal polysaccharide vaccine, [address] Mackenzie Colunga MD Work Phone: [facility] 04-16-2009 novel [id number], preservative-free, injectable Dr. Mackenzie Colunga MD Work Phone: [facility] NEGATED: Highlighted row has not occurred!03-14-2021 tetanus toxoid, reduced diphtheria toxoid, and acellular pertussis vaccine, adsorbed [facility] Work Phone: Comment on above: Deferred: - pt state s he had last tetnus shot 4 years ago. declines tdap today. Payers Date Payer Category Payer Self-pay 2023 Unknown [id number] 2016 Unknown [id number] 1970 Unknown [id number] 2.16.8 [id number] Unknown [id number] 2.16.8 [id number] Unknown [id number] 2.16.8 [id number] Unknown [id number] 2.16.8 [id number] Unknown [id number] 2.16.8 [id number] Unknown [id number] 2.16.8 [id number] Unknown [id number] 2.16.8 [id number] Unknown [id number] 2.16.8 [id number] Unknown [id number] 2.16.8 [id number] Unknown [id number] 2.16.8 [id number] Unknown [id number] 2.16.8 [id number] Unknown [id number] 2.16.8 [id number] Unknown [id number] 2.16.8 [id number] Social History Date Type Detail Facility Tobacco smoking status NHIS Tobacco smoking consumption unknown [facility] Start: 1970 Sex Assigned At Not on file [facility] Work Phone: Exposure to SARS-CoV-2 (event) Not sure [facility] Work Phone: Start: 08-11-2024 End: 10-17-2024 Smokes tobacco daily (finding) [facility] Sex Assigned At [facility] Start: 05-30-2024 Tobacco Use Tobacco Use [facility] Start: 1970 Sex Assigned At Male [facility] Gender Identity Identifies as ma le gender (finding) [facility] Functional Status Date Assessment Result Facility 02-18-2023 Functional Status Independent [facility] 02-18-2023 Functional Status Standard Safet y ID band on, Allergy Band on, Call device within reach, Bed in low position, Wheels locked [facility] Mental Status Date Assessment Result Facility 02-18-2023 Mental Status Orientation Oriented x 4 [facility] 02-18-2023 Mental Status [facility] Clinical Notes 03-14-2021 to 09-29-2024 Note Date & Type Note Facility 09-29-2024 Radiology Diagnostic study note [facility] Imaging Services [address] [place] [address] Liver MR#: [id number] Acct: [id number] Name: KATIE BERNAL Jr. Rep #: [id number] : 1970 M 53 From: Efrain De Los Santos MD PCP: Dr. Courtney Cotter MD Status: REG CLI Study:Liver Date of Exam: 09/29/24 Exam# [id number] Ordering Dr: Casa Hoyt PROCEDURE: LIVER 09/29/2024 REASON FOR EXAM: POSSIBLE EMBOLI Possible thrombosis of the portal vein. COMPARISON: Prior CT scan of the abdomen and pelvis dated September 23, 2024. FINDINGS: Liver: Diffusely echogenic suggesting fatty infiltration. Findings suggestive of partial thrombosis of the portal vein. The portal flow is hepato pedal. Gallbladder: Sludge is seen within the gallbladder lumen. I suspect a 2 mm x 3 mm by 2 mm polyp adjacent to the gallbladder wall. Common bile duct: Normal measuring 3 mm.. Pancreas: Visualized portions are sonographically unremarkable. Other: Right kidney is unremarkable. No evidence of splenomegaly. The spleen measures 8.4 cm 4.3 cm x 3.1 cm. 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 The portal flow is hepatopetal. Sludge in the gallbladder lumen as well as a 2 mm x 3 mm x 2 mm polyp adjacent to the gallbladder wall. Reading [facility] CC: Dr. Courtney Cotter MD; MICHELLE Hernandez ~ Color Strainer: Signed [facility] 09-23-2024 Radiology Diagnostic study note [facility] Imaging Services [address] [place], [place] [id number] Abdomen/Pelvis WITH Contrast MR#: [id number] Acct: [id number] Name: KATIE BERNAL JrShivani Rep #: [id number] : 1970 M 53 From: Pippa Judge MD PCP: Dr. Courtney Cotter MD Status: REG CLI Study:Abdomen/Pelvis WITH Contrast Date of Ex am: 09/23/24 Exam# [id number] Ordering Dr: Casa Hoyt PROCEDURE: ABDOMEN/PELVIS WITH CONTRAST 09/23/2024 REASON FOR EXAM: PAIN TECHNIQUE: Abdomen and pelvis CT with oral and intravenous contrast. Coronal and Sagittal reconstruction series were provided. PATIENT PREPARATION: Per protocol CONTRAST: 97 mL Isovue 370 One or more dose reduction techniques were used (e.g., Automated exposure control, adjustment of the mA and/or kV according to patient size, use of iterative reconstruction technique. RADIATION DOSE SUMMARY: CTDlvol: 13.5 mGy DLP: 725 mGycm COMPARISON: None FINDINGS: Lung bases: Calcified granuloma in the lingula. Otherwise unremarkable. Liver: Subcentimeter hypodensity in the right hepatic lobe is too small to characterize. There is heterogeneous appearance of the posterior right hepatic lobe. There is streaky hypodensity present within the main and right portal veins. Gallbladder: Unremarkable Spleen: Normal size. Pancreas: Normal size without evidence of mass surrounding inflammation or ductal dilation. Adrenals: Unremarkable Kidneys: No hydronephrosis or stone. Bladder: Circumferential bladder wall thickening. Reproductive Organs: Prostatomegaly. Bowel: There is wall thickening and inflammatory stranding surrounding the sigmoid colon in the region of diverticulosis. There is an ovoid hypodensity with a punctate focus of hyperdensity internally at the mesenteric aspect of the prox sigmoid colon wall measuring 1.6 x 1.2 cm (series 2, image 80). No air is present within this hypodensity. No obstruction. Appendix: The appendix is not identified. There is no inflammatory process identified in the right lower quadrant to suggest appendicitis. Lymph nodes: Subcentimeter retroperitoneal nodes are likely reactive. Vasculature: Mild diffuse atherosclerotic calcifications are noted. There are 2right renal arteries. Bones: Unremarkable CT/Abdomen/Pelvis WITH Contrast IMPRESSION: 1. Inflammatory changes in the region of diverticulosis in the sigmoid colon, most suggestive of acute diverticulitis. There is an ovoid hypodensity measuring 1.6 cm adjacent to the involved colon which may represent a developing abscess or inflamed diverticulum. 2. Heterogeneous enhancement of the posterior right hepatic lobe, nonspecific and which may represent transient hepatic attenuation differences. However, given additional finding of streaky hypodensity within the portal veins, consider Doppler ultrasound to exclude portal vein thrombosis. 3. Circumferential bladder wall thickening, which may be reactive or the resultof cystitis. Correlate with urinalysis. Reading Location: [facility] CC: Dr. Courtney Cotter MD; MICHELLE Hernandez ~ Color Strainer: Signed [facility] 06-22-2024 Evaluation note Diagnosis Onset Date Resolution Elevated blood-pressure reading without diagnosis of hypertension acute June 22 3:30pm Focal infarction of brain acute June 22 3:30pm HARSHIL (generalized anxiety disorder) acute June 22, 2024 3:30pm Nicotine use acute June 3:30pm Caffeine abuse inactive June 042024 3:30pm HARSHIL (generalized anxiety disorder) acute July 12 3:49pm Nicotine use acute July 12, 2024 3:49pm Caffeine abuse inactive July 3:49pm Focal infarction of brain acute August 11, 2024 8:24am HARSHIL (generalized anxiety disorder) acute August 11 8:24am History of migraine headaches acute August 11, 2024 8:24am Family history of colon cancer noneactive August 11, 2024 8:24am Immunization due noneactive August 112024 8:24am Smokes cigarettes noneactive August 022024 8:24am Establishing care with new doctor, encounter for noneactive August 11, 2024 8:24am Crohn's disease noneactive August 8:24am Caffeine dependence noneactive August 11, 2024 8:24am Left groin pain acute September 22, 2024 12:17pm [facility] Work Phone: 1(865) 835-881502-19-2025 Evaluation note* Diagnosis Onset Date Resolution Status Admit Date Elevated blood-pressure reading without diagnosis of hypertension acute June 22 3:30pm Focal infarction of brain acute June 22, 2024 3:30pm HARSHIL (generalized anxiety disorder) acute June 22 025 3:30pm Nicotine use acute June 3:30pm Caffeine abuse inactive June 042024 3:30pm HARSHIL (generalized anxiety disorder) acute July 12, 2024 3:49pm Nicotine use acute March 11th, 2025 3:49pm Caffeine abuse inactive July 3:49pm Focal infarction of brain acute August 11, 2024 8:24am HARSHIL (generalized anxiety disorder) acute August 11, 2024 8:24am History of migraine headaches acute August 11, 2024 8:24am Family history of colon cancer noneactive August 11, 2024 8:24am Immunization due noneactive August 112024 8:24am Smokes cigarettes noneactive August 022024 8:24am Establishing care with new doctor, encounter for noneactive August 8:24am Crohn's disease noneactive August 8:24am Caffeine dependence noneactive August 11, 2024 8:24am Left groin pain acute September 22, 2024 12:17pm Crohn's disease acute October 2:31pm Diverticulitis large intestine acute October 11, 2024 2:31pm History of left inguinal hernia repair acute October 11, 2024 2:31pm Left groin pain acute October 2:31pm Left groin pain acute October 8:26am Portal vein thrombosis acute 2024 8:26am [facility] Work Phone: 1(953) 109-886601-27-2025 [facility] Medical Records Department [address] [place] [id number] Discharge Summary 05/30/241807 MR#: [id number] Acct: [id number] Name: EDDA BERNAL Rep #: [id number] : 1970 53 From: Jerome Blanco DO PCP: Dr. Mackenzie Colunga MD Status:ADM [facility]BER [id number] Prov[facility] Date of Admission: 05/30/24 Date of Discharge: 05/30/24 Primary Care Physician: Dr. Mackenzie Colunga MD Consultations 05/30/24 14:50 Consult: Tele-Neurology Routine Consulting Provider: [facility] Reason for Consult: Acute Ischemic Stroke/TIA EMERGENT Consult: No MD Notified: Yes Date Notified: 05/30/24 Time Notified: 15:33 Method of Notification: [facility]swering Service Nursing Unit Staff Notify [facility] of Tele-Neurology Consult: Yes Reason For Visit: STROKELIKE SYMPTOMS Medications at Discharge Home Medications NK 05/30/24 Hospital Course Operations None Procedures EKG and - (CT brain, CTA head/neck, MRI brain, chest x-ray) Summary of Care Provided Minutes Spent on Discharge: 35 Hospital Course: Patient is a 53-year-old male who presented [facility] ED on 05/30/2024 with strokelike symptoms. Short hospital course was notable low. Patient discharged home on the evening of 05/30 in stable condition. 1. Strokelike symptoms, CVA ruled out ??? Presented with headache, slurred speech, and reported left-sided facial droop and right-sided weakness. Initial NIHSS score of 9. Symptom onset air value tester of 05/30, outside the window for TNK. CT brain and CTA head/neck unremarkable. 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 Lipid panel with low HDL 31, otherwise normal. A1c 6.0%. TSH normal. Patient passed a swallow study without issue. He was walking around the room after MRI without issue and had no weakness of his upper or lower extremities. Patient strongly dislikes being in the hospital and preferred for discharge on the evening of 05/30. noted that patient looked significantly improved from the morning. Symptoms may have been related to migraine but this is unclear. However, with negative MRI, fairly normal labs and stable hemodynamics with significant symptom improvement, okay for patient to be discharged home on the evening of admission. 2. Migraine headaches ??? Patient reports occasional migraine headaches for many years. Migraines are typically bilateral and are associated with mild photophobia and nausea. No aura with headaches. Has never had strokelike symptoms with headaches before. Typically takes ibuprofen with moderate relief of migraine. Follow-up with PCP for further recommendations as needed. 3. Crohn's disease ??? Reported history, unclear on timing of diagnosis. Diet controlled. Patient also takes medical marijuana for this. He notably has strong hesitation about taking scheduled medications. States symptoms have been well-controlled recently. No further recommendations on discharge. Total clinical time spent by myself addressing the patient's medical issues, reviewing all the data, and collaborating with patient's care team: 35 minutes. Physical Exam Const alert, oriented x3 and average body habitus Constitutional Narrative: Middle-age male, alert and oriented x 3, slurred speech resolved, remained argumentative but otherwise sitting up comfortably in bed and in no acute distress. General Appearance: comfortable HEENT normocephalic, head/scalp atraumatic, hearing grossly normal bilaterally, nasal mucous membranes and turbinates normal and moist oral mucous membranes Eyes PERRL, EOMs intact bilaterally and conjunctivae normal Neck full ROM Chest inspection of chest normal Resp normal respiratory effort, normal air movement, no use of accessory muscles and clear to auscultation bilaterally Cardio regular rate, regular rhythm, no murmurs and peripheral pulses 2+ throughout GI normal to inspection, nondistended, normoactive bowel sounds, soft to palpation, non-tender and non- distended Back/Spine normal ROM Extremity normal to inspection, full ROM and no pedal edema Skin no rashes or lesions noted Neuro oriented x3, CN's II-XII intact bilaterally, moves all extremities and no focal motor deficits Sensorium / Orientation: awake and alert Coordination / Balance: pvwquy-in-fuie test normal Speech: speech normal Motor Exam: strength 5/5 throughout Psych mental status grossly normal Weight / BMI Weight Weight: 80.1 kg Body Mass Index (BMI) 27.6 ABG / Lab / Microbiology Data 05/30/24 12:56 05/30/24 12:56 Laboratory: Laboratory Results - last 24 hr 05/30/24 12:56: WBC 9.4, RBC 4.98, Hgb 15.2, Hct 45.1, MCV 90.6, MCH 30.5, MCHC 33.7, RDW Std Deviation 45.1 H, RDW Coeff of Jake 13.5, Plt Count 336, MPV 8.8, Immatu (more content not included)...[facility]10-18-2023 Hospital Discharge instructions Patient Education 02/18/2023 10:36:14 Diverticulitis Diverticulitis Some people get pouches along the wall of the colon as they get older. The pouches, called diverticuli, usually cause no symptoms. If the pouches become blocked, you can get an infection. This infection is called diverticulitis. It causes pain in your lower abdomen and fever. If not treated, it canbecome a serious condition, causing an abscess to form inside the pouch. The abscess may block the intestinal tract even or rupture, spreading infection throughout the abdomen. When treatment is started early, oral antibiotics alone may be enough to cure diverticulitis. This method is tried first. But, if you don't improve or if your condition gets worse while using oral antibiotics, you may need to be admitted to the hospital for IV antibiotics. Severe cases may require surgery. Home care The following guidelines will help you care for yourself at home: During the acute illness, rest and follow your healthcare provider's instructions about diet. Sometimes you will need to follow a clear liquid diet to rest your bowel. Once your symptoms are better, you may be told to follow a low-fiber diet for some time. Include foods like: oFlake cereal, mashed potatoes, pancakes, waffles, pasta, white bread, rice, applesauce, bananas, eggs, fish, poultry, tofu, and cooked soft vegetables Take antibiotics exactly as instructed. Don't miss any doses or stop taking the medication, even ifyou feel better. Monitor your temperature and tell your healthcare provider if you have rising temperatures. Preventing future attacks Once you have an episode of diverticulitis, you are at risk for having it again. After you have recovered from this episode, you may be able to lower your risk by eating a high-fiber diet (20 gm/day to 35 gm/day of fiber). This cleans out the colon pouches that already exist and may prevent new ones from forming. Foods high in fiber include fresh fruits and edible peelings, raw or lightly cooked vegetables, whole grain cereals and breads, dried beans and peas, and bran. Other steps that can help prevent future attacks include: Take your medicines, such as antibiotics, as your healthcare provider says. Drink 6 to 8 glasses of water every day, unless told otherwise. Use a heating pad or hot water bottle to help abdominal cramping or pain. Begin an exercise program. Ask your healthcare provider how to get started. You can benefit from simple activities such as walking or gardening. Treat diarrhea with a bland diet. Start with liquids only; then slowly add fiber over time. Watch for changes in your bowel movements (constipation to diarrhea). Avoid constipation by eating a high fiber diet and taking a stool softener if needed. Get plenty of rest and sleep. Follow-up care Follow up with your healthcare provider as advised or sooner if you are not getting better in the next 2 days. When to seek medical advice Call your healthcare provider right away if any of these occur: Fever of 100.4 F (38 C) or higher, or as directed by your healthcare provider Repeated vomiting or swelling of the abdomen Weakness, dizziness, light-headedness Pain in your abdomen that gets worse, severe, or spreads to your back Pain that moves to the right lower abdomen Rectal bleeding (stools that are red, black or maroon color) Unexpected vaginal bleeding [id number] [employer]. [address] [place] [address]. All rights reserved. This information is not intended as a substitute for professional medical care. Always follow yourhealthcare professional's instructions. Follow Up Care 02/18/2023 07:54:57 With:KLAUDIA SWENSON MD Address: [address] [place] [address]- When:2-4 days With:Follow up with primary care provider Address:Unknown When:2-4 days [facility] 10-18-2023 Note Discharge Instructions Thank you for allowing [facility] to assist you with your healthcare needs. The following is importantdischarge information regarding your hospital visit. Diagnosis from Today's Visit Abdominal pain What to Do Next Instructions from Your Care Team No qualifying data available. Post Acute Orders No qualifying data available. You Need to Schedule the Following Appointments Follow Up with KLAUDIA SWENSON MD When Within 2-4 days Where: [place] [address]- Follow Up with Follow up with primary care provider When Within 2-4 days Allergies Flagyl (Swelling of throat, Itching) Percocet 5/325 (Migraine, Itching) Vicodin (Migraine, Itching) ciprofloxacin (Itching, Swelling of throat) penicillin (SOB - Shortness of breath) Medications Please ask your primary doctor or pharmacist before taking any other medication not listed, including over the counter drugs, herbal medications, vitamins and or supplements as they may interact withyour home medications. What How Much When Instructions Last Dose New levoFLOXacin (levoFLOXacin 750 mg oral tablet) 1 tab(s) by mouth Every 24 hours Duration: 6 Days Stat tomorrow take with a probiotic Printed Prescription 11:09 Unchanged ciprofloxacin (ciprofloxacin 500 mg oral tablet) 1 tab(s) by mouth Every 12 hours stop Unchanged docusate (docusate sodium 100 mg oral capsule) 1 cap by mouth Two (2) times a day Unchanged metroNIDAZOLE (metroNIDAZOLE 500 mg oral tablet) 1 tab(s) by mouth Three (3) times a day Unchanged traMADol (traMADol 50 mg oral tablet) 1 tab(s) by mouth Every 6 hours as needed for for pain Please take this list to your next doctor s visit. Bring all medications you take, including over the counter medications, herbals and other supplements with you to your doctor s visit. Patients and families are reminded to discard old lists and to update any records with all medication providers or retail pharmacies. Medication Leaflets levofloxacin (oral) (TONJA hanna) What is the most important information I should know about levofloxacin? Levofloxacin can cause serious side effects, including tendon problems, nerve damage, serious mood or behavior changes, or low blood sugar. Stop using this medicine and call your doctor at once if you have symptoms such as: headache, hunger, irritability, numbness, tingling, burning pain, confusion, agitation, paranoia, problems with memory or concentration, thoughts of suicide, or sudden pain or movement problems in any of your joints. In rare cases, levofloxacin may cause damage to your aorta, which could lead to dangerous bleeding or . Get emergency medical help if you have severe and constant pain in your chest, stomach, orback. What is levofloxacin? Levofloxacin is a fluoroquinolone (kxnh-h-NFRX-o-lone) antibiotic that fights bacteria in the body.Levofloxacin is used to treat different types of bacterial infections. Levofloxacin is also used totreat people who have been exposed to anthrax or certain types of plague. Fluoroquinolone antibiotics can cause serious or disabling side effects. Levofloxacin should be used only for infections that cannot be treated with a safer antibiotic. Levofloxacin may also be used for purposes not listed in this medication guide. What should I discuss with my healthcare provider before taking levofloxacin? You should not use this medicine if you are allergic to levofloxacin or other fluoroquinolones (ciprofloxacin, gemifloxacin, moxifloxacin, norfloxacin, ofloxacin, and others). Levofloxacin may cause swelling or tearing of a tendon (the fiber that connects bones to muscles inthe body), especially in the Achilles' tendon of the heel. This can happen during treatment or up to several months after you stop taking levofloxacin. Tendon problems may be more likely in certain people (children and older adults, or people who use steroid medicine or have had an organ transplant). Tell your doctor if you have ever had: tendon problems, bone problems, arthritis or other joint problems (especially in children); blood circulation problems, aneurysm, narrowing or hardening of the arteries; heart problems, high blood pressure; a genetic disease such as Marfan syndrome or Ehler's-Danlos syndrome; diabetes; a muscle or nerve disorder, such as myasthenia gravis; kidney disease; seizures or epilepsy; a head injury or brain tumor; long QT syndrome (in you or a family member); or low levels of potassium in your blood (hypokalemia). Do not give this medicine to a child without medical advice. It is not known whether this medicine will harm an unborn baby. Tell your doctor if you are . You should not breast-feed while using this medicine. How should I take levofloxacin? Follow all directions on your prescription label and read all medication guides or instruction sheets. Use the medicine exactly as directed. Take levofloxacin with water, at the same time each day. Drink extra fluids to keep your kidneys working properly while taking this medicine. You may take levofloxacin tablets with or without food. Take levofloxacin oral solution (liquid) on an empty stomach, at least 1 hour before or 2 hours after a meal. Measure liquid medicine carefully. Use the dosing syringe provided, or use a medicine dose-measuring device (not a kitchen spoon). Use this medicine for the full prescribed length of time, even if your symptoms quickly improve. Skipping doses can increase your risk of infection that is resistant to medication. Levofloxacin will not treat a viral infection such as the flu or a common cold. Do not share levofloxacin with another person. This medicine may affect a drug-screening urine test and you may have false results. Tell the laboratory staff that you use levofloxacin. Store at room temperature away from moisture and heat. Keep the bottle tightly closed when not in use. What happens if I miss a dose? Take the medicine as soon as you can, but skip the missed dose if it is almost time for your next dose. Do not take two doses at one time. What happens if I overdose? Seek emergency medical attention or call the Poison Help line at . What should I avoid while taking levofloxacin? Avoid driving or hazardous activity until you know how this medicine will affect you. Your reactions could be impaired. Antibiotic medicines can cause diarrhea, which may be a sign of a new infection. If you have diarrhea that is watery or bloody, call your doctor before using anti-diarrhea medicine. Levofloxacin could make you sunburn more easily. Avoid sunlight or tanning beds. Wear protective clothing and use sunscreen (SPF 30 or higher) when you are outdoors. Tell your doctor if you have severe burning, redness, itching, rash, or swelling after being in the sun. What are the possible side effects of levofloxacin? Get emergency medical help if you have signs of an allergic reaction (hives, difficult breathing, swelling in your face or throat) or a severe skin reaction (fever, sore throat, burning in your eyes,skin pain, red or purple skin rash that spreads and causes blistering and peeling). Levofloxacin can cause serious side effects, including tendon problems, side effects on your nerves(which may cause permanent nerve damage), serious mood or behavior changes (after just one dose), or low blood sugar (which can lead to coma). Stop taking this medicine and call your doctor at once if you have: low blood sugar--headache, hunger, sweating, irritability, dizziness, nausea, fast heart rate, or feeling anxious or shaky; nerve symptoms in your hands, arms, legs, or feet--numbness, weakness, tingling, burning pain; serious mood or behavior changes--nervousness, confusion, agitation, paranoia, hallucinations, memory problems, trouble concentrating, thoughts of suicide; or signs of tendon rupture--sudden pain, swelling, bruising, tenderness, stiffness, movement problems,or a snapping or popping sound in any of your joints (rest the joint until you receive medical careor instructions). In rare cases, levofloxacin may cause damage to your aorta, the main blood artery of the body. Thiscould lead to dangerous bleeding or . Get emergency medical help if you have severe and constant pain in your chest, stomach, or back. Stop taking levofloxacin and call your doctor at once if you have: severe stomach pain, diarrhea that is watery or bloody; fast or pounding heartbeats, fluttering in your chest, shortness of breath, and sudden dizziness (like you might pass out); the first sign of any skin rash, no matter how mild; muscle weakness, breathing problems; seizure (convulsions); increased pressure inside the skull--severe headaches, ringing in your ears, dizziness, nausea, vision problems, pain behind your eyes; or liver problems--upper stomach pain, loss of appetite, dark urine, melita-colored stools, jaundice (yellowing of the skin or eyes). Common side effects may include: nausea, constipation, diarrhea; headache, dizziness; or trouble sleeping. This is not a complete list of side effects and others may occur. Call your doctor for medical advice about side effects. You may report side effects to FDA at 6-725-HYJ-0914. What other drugs will affect levofloxacin? Some medicines can make levofloxacin much less effective when taken at the same time. If you take any of the following medicines, take your levofloxacin dose 2 hours before or 2 hours after you take the other medicine. antacids that contain magnesium or aluminum (such as Maalox, Mylanta, or Rolaids), or the ulcer medicine sucralfate (Carafate); didanosine (Videx) powder or chewable tablets; or vitamin or mineral supplements that contain aluminum, iron, magnesium, or zinc. Tell your doctor about all your other medicines, especially: theophylline; a diuretic or 'water pill'; heart rhythm medication; insulin or oral diabetes medicine (check your blood sugar regularly); medicine to treat depression or mental illness; steroid medicine (such as prednisone); a blood thinner--warfarin, Coumadin, Jantoven; or NSAIDs (nonsteroidal anti-inflammatory drugs)--aspirin, ibuprofen (Advil, Motrin), naproxen (Aleve), celecoxib, diclofenac, indomethacin, meloxicam, and others. This list is not complete. Other drugs may affect levofloxacin, including prescription and dltx-hua-iajbaga medicines, vitamins, and herbal products. Not all possible drug interactions are listed here. Where can I get more information? Your pharmacist can provide more information about levofloxacin. Remember, keep this and all other medicines out of the reach of children, never share your medicines with others, and use this medication only for the indication prescribed. Every effort has been made to ensure that the information provided by [employer]. ('[employer]') is accurate, up-to-date, and complete, but no guarantee is made to that effect. Drug information contained herein may be time sensitive. [employer] information has been compiled for use by healthcare practitioners and consumers in the [place] and therefore [employer] does not warrant that uses outside of the [place] are appropriate, unless specifically indicated otherwise. [employer] drug information does not endorse drugs, diagnose patients or recommend therapy. [employer] drug information isan informational resource designed to assist licensed healthcare practitioners in caring for their p atients and/or to serve consumers viewing this service as a supplement to, and not a substitute for, the expertise, skill, knowledge and judgment of healthcare practitioners. The absence of a warningfor a given drug or drug combination in no way should be construed to indicate that the drug or drug combination is safe, effective or appropriate for any given patient. [employer] does not assume any responsibility for any aspect of healthcare administered with the aid of information [employer] provides. The information contained herein is not intended to cover all possible uses, directions, precautions, warnings, drug interactions, allergic reactions, or adverse effects. If you have questions about the drugs you are taking, check with your doctor, nurse or pharmacist. Copyright 7951-1863 [employer]. Version: 16.. Revision Date: 12/11/2022. Education Materials Diverticulitis Some people get pouches along the wall of the colon as they get older. The pouches, called diverticuli, usually cause no symptoms. If the pouches become blocked, you can get an infection. This infection is called diverticulitis. It causes pain in your lower abdomen and fever. If not treated, it canbecome a serious condition, causing an abscess to form inside the pouch. The abscess may block the intestinal tract even or rupture, spreading infection throughout the abdomen. When treatment is started early, oral antibiotics alone may be enough to cure diverticulitis. This method is tried first. But, if you don't improve or if your condition gets worse while using oral antibiotics, you may need to be admitted to the hospital for IV antibiotics. Severe cases may require surgery. Home care The following guidelines will help you care for yourself at home: During the acute illness, rest and follow your healthcare provider's instructions about diet. Sometimes you will need to follow a clear liquid diet to rest your bowel. Once your symptoms are better, you may be told to follow a low-fiber diet for some time. Include foods like: oFlake cereal, mashed potatoes, pancakes, waffles, pasta, white bread, rice, applesauce, bananas, eggs, fish, poultry, tofu, and cooked soft vegetables Take antibiotics exactly as instructed. Don't miss any doses or stop taking the medication, even ifyou feel better. Monitor your temperature and tell your healthcare provider if you have rising temperatures. Preventing future attacks Once you have an episode of diverticulitis, you are at risk for having it again. After you have recovered from this episode, you may be able to lower your risk by eating a high-fiber diet (20 gm/day to 35 gm/day of fiber). This cleans out the colon pouches that already exist and may prevent new ones from forming. Foods high in fiber include fresh fruits and edible peelings, raw or lightly cooked vegetables, whole grain cereals and breads, dried beans and peas, and bran. Other steps that can help prevent future attacks include: Take your medicines, such as antibiotics, as your healthcare provider says. Drink 6 to 8 glasses of water every day, unless told otherwise. Use a heating pad or hot water bottle to help abdominal cramping or pain. Begin an exercise program. Ask your healthcare provider how to get started. You can benefit from simple activities such as walking or gardening. Treat diarrhea with a bland diet. Start with liquids only; then slowly add fiber over time. Watch for changes in your bowel movements (constipation to diarrhea). Avoid constipation by eating a high fiber diet and taking a stool softener if needed. Get plenty of rest and sleep. Follow-up care Follow up with your healthcare provider as advised or sooner if you are not getting better in the next 2 days. When to seek medical advice Call your healthcare provider right away if any of these occur: Fever of 100.4 F (38 C) or higher, or as directed by your healthcare provider Repeated vomiting or swelling of the abdomen Weakness, dizziness, light-headedness Pain in your abdomen that gets worse, severe, or spreads to your back Pain that moves to the right lower abdomen Rectal bleeding (stools that are red, black or maroon color) Unexpected vaginal bleeding 4601-0100 [employer]. [address] [place] [address], [place] [address]. All rights reserved. This information is not intended as a substitute for professional medical care. Always follow yourhealthcare professional's instructions. Additional Information VACCINATE! IT SAVES LIVES! Members of the community who have not yet received the COVID-19 vaccine and would like to receive it can visit one of [facility] vaccine clinics. There are many vaccine clinic locations within the [facility]. For locations and available times, please visit www.[email or web address].[place].gov/. It is important to note that some COVID mobile vaccine clinics are held outdoors and may be canceled in rainy or stormy conditions. To learn more about pediatric vaccinations (ages 5-11), we invite you to visit the [employer] [facility] webpage. https://www.[employer]etys.org/pages/6926-Mmamb-Rvchteicpep-Cfdryegugo-Ddxny-Khc stions.htmlTo learn more about the COVID-19 vaccine, we invite you to visit the CDC website for a list of frequently asked questions. https://www.cdc.gov/coronavirus/2019-ncov/vaccines/faq.html [facility] Patient Portal Access Instructions: Stay connected with your healthcare team and access your personal medical information anytime with the [facility] Patient Portal. If you would like a full copy of your medical records please contact the [facility] Medical Records Department Thursday through Thursday between 8a.m. and 4:30p.m. Please follow the directions below to access the portal: 1.Access the email account you provided upon registration to the hospital.2.Look for an invitation email from [facility].3.Open the email and access the invitation link: Accept Invitation to [facility].Fill in the required gross to create your account. Sign into [email or web address] with your username and password that you created in the above steps to stay up to date. You can then view a summary of results, a summary of your visits, and the ability to download your summaries to your computer or send the information securely to a physician. Remember that your healthcare information is confidential, so carefully consider who you will allow to register on the [facility] Patient Portal for access to your information. You can also access the [facility] Patient Portal on the [employer] ivy. Simply click on Health Records under [employer] and then click on the [employer] logo. HOW TO SAFELY DISPOSE OF PRESCRIPTION MEDICATIONS Please use one of the following methods to safely dispose of your unused medications. 1.Use a drug disposal kit: the drug disposal pouch allows you to safely discard your old and unuseddrugs. Ask your nurse to give you one when you are discharged.2.Visit a local take-back location: Many local pharmacies and police departments have programs that collect old and unwanted prescriptiondrugs. Call your local pharmacy or go to http://[employer]ee.[employer]/3Q2Ty3z to find one close to you.3.Make use of household items: Use cat litter or old coffee grounds to dispose medications if other options arenot available. Mix your drugs with these household products, seal them in an airtight container andthrow it into the garbage. Call [facility]: [phone] to be sure your drugs can be disposed of in this way. Some medicines may require a different approach.4.Never flush your medications down the toilet. IF YOU HAVE BEEN PRESCRIBED AN OPIOIDS FOR PAIN If you have been prescribed an opioid (such as hydrocodone, oxycodone or morphine), it is critical to understand the possible side effects and risks of opioid pain medications. Even when taken as directed, opioids can have several side effects including: Tolerance, meaning you might need to take more of a medication for the same pain relief. Nausea, vomiting and/or constipation. Sleepiness, dizziness, dry mouth, confusion, depression or itching. Physical dependence, meaning you have withdrawal symptoms when a medication is stopped ? this can develop within a few days. KNOW YOUR RESPONSIBILITIES It is important to know exactly how much and how often to take the opioid pain medications you are prescribed. Never take opioids in higher amounts or more often than prescribed. Do not combine opioids with alcohol or other drugs that cause drowsiness, such as benzodiazepines, also known as benzos,including diazepam and alprazolam, muscle relaxants or sleep aids. Never sell or share prescriptionopioids. This is illegal. Store opioids in a secure place and out of reach of others (including children, family, friends and visitors). The last page(s) of this document has been signed and retained as a CHART COPY Signatures Patient Education Materials Diverticulitis Medication Leaflets levofloxacin (oral) My discharge plan and instructions have been reviewed and explained to me and I,GABE Vargas, EDDA Lorenz understand my current condition and have read and understand these discharge instructions. I have received a written copy of the plan/instructions. If I have questions, I am aware that I should contact my doctor. 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 Multiplanar reformatted images are provided for review. Automated exposure control, iterative reconstruction, and/or weight based adjustment of the mA/kV was utilized to reduce the radiation dose to as low as reasonably achievable. COMPARISON: March 18, 2017 HISTORY: ORDERING SYSTEM PROVIDED HISTORY: Reason for Exam: LLQ pain. started sat.hx of crohns pain FINDINGS: Minor degenerative changes are noted in the spine. No other osseous abnormality. No osseous abnormality identified. A small central liver cyst is noted. No other liver abnormality. Spleen, adrenal glands and pancreas are unremarkable. No kidney abnormality seen. No adenopathy, free air or free fluid is evident. The urinary bladder is not optimally distended but is grossly normal. Mild to moderate diverticulosis is present at the sigmoid and left colon, with scattered diverticula elsewhere as well. Additionally, there is prominent wall thickening of the proximal to midportion of the sigmoid colon, with prominent adjacent infiltrative increased density. The findings are compatible with moderately prominent diverticulitis. No extraluminal air or drainable abscess is identified. No other GI tract abnormality is visible. No additional contributory finding. IMPRESSION: Moderate sigmoid diverticulitis. No free air or abscess seen. Interpreted by: Dereje Bowers MD Preliminary Report By: Dereje Bowers MD Electronically signed By Dereje Bowers MD Dictated Date: 02/18/2023 9:29:28 AM Prelim Date: 02/18/2023 9:31:45 AM Sign Date: 02/18/2023 9:31:45 AM Ordering Provider: [facility]01-09-2022 Hospital Discharge instructions Patient Education 05/12/2021 21:35:36 Viral Syndrome (Adult) Viral Syndrome (Adult) A viral illness may cause a number of symptoms such as fever. Other symptoms depend on the part of the body that the virus affects. If it settles in your nose, throat, and lungs, it may cause cough, sore throat, congestion, runny nose, headache, earache and other ear symptoms, or shortness of breath. If it settles in your stomach and intestinal tract, it may cause nausea, vomiting, cramping, and diarrhea. Sometimes it causes generalized symptoms like aching all over, feeling tired, loss of energy, or loss of appetite. A viral illness usually lasts anywhere from several days to several weeks, but sometimes it lasts longer. In some cases, a more serious infection can look like a viral syndrome in the first few days of the illness. You may need another exam and additional tests to know the difference. Watch for thewarning signs listed below for when to seek medical advice. Home care Follow these guidelines for taking care of yourself at home: If symptoms are severe, rest at home for the first 2 to 3 days. Stay away from cigarette smoke - both your smoke and the smoke from others. You may use gtgg-qlm-gjtmfzj acetaminophen or ibuprofen for fever, muscle aching, and headache, unless another medicine was prescribed for this. If you have chronic liver or kidney disease or ever had a stomach ulcer or gastrointestinal bleeding, talk with your healthcare provider before using these medicines. No one who is younger than 18 and ill with a fever should take aspirin. It may cause severe disease or . Your appetite may be poor, so a light diet is fine. Avoid dehydration by drinking 8 to 12, 8-ounce glasses of fluids each day. This may include water; orange juice; lemonade; apple, grape, and cranberry juice; clear fruit drinks; electrolyte replacement and sports drinks; and decaffeinated teas andcoffee. If you have been diagnosed with a kidney disease, ask your healthcare provider how much andwhat types of fluids you should drink to prevent dehydration. If you have kidney disease, drinking too much fluid can cause it build up in the your body and be dangerous to your health. Jyju-zdw-djocoft remedies won't shorten the length of the illness but may be helpful for symptoms such as cough, sore throat, nasal and sinus congestion, or diarrhea. Don't use decongestants if you have high blood pressure. Follow-up care Follow up with your healthcare provider if you do not improve over the next week. Call 911 Call 911 if any of the following occur: Convulsion Feeling weak, dizzy, or like you are going to faint Chest pain, or more than mild shortness of breath When to seek medical advice Call your healthcare provider right away if any of these occur: Cough with lots of colored sputum (mucus) or blood in your sputum Chest pain, shortness of breath, wheezing, or trouble breathing Severe headache; face, neck, or ear pain Severe, constant pain in the lower right side of your belly (abdominal) Continued vomiting (can t keep liquids down) Frequent diarrhea (more than 5 times a day); blood (red or black color) or mucus in diarrhea Feeling weak, dizzy, or like you are going to faint Extreme thirst Fever of 100.4 F (38 C) or higher, or as directed by your healthcare provider [phone] [employer]. [address] [place] [address]. All rights reserved. This information is not intended as a substitute for professional medical care. Always follow yourhealthcare professional's instructions. 05/12/2021 21:35:28 Conjunctivitis, Non-Specific Conjunctivitis, Nonspecific The membrane that covers the white part of your eye (the conjunctiva) is inflamed. Inflammation happens when your body responds to an injury, allergic reaction, infection, or illness. Symptoms of inflammation in the eye may include redness, irritation, itching, swelling, or burning. These symptoms should go away within the next 24 hours. Conjunctivitis may be related to a particle that was in your eye. If so, it may wash out with your tears or irrigation treatment. Being exposed to liquid chemicals or fumes may also cause this reaction. Home care Apply a cold pack over the eye for 20 minutes at a time. This will reduce pain. To make a cold pack, put ice cubes in a plastic bag that seals at the top. Wrap the bag in a clean, thin towel or cloth. Artificial tears may be prescribed to reduce irritation or redness. These should be used 3 to 4 times a day. You may use acetaminophen or ibuprofen to control pain, unless another medicine was prescribed. (Note: If you have chronic liver or kidney disease, or if you have ever had a stomach ulcer or gastrointestinal bleeding, talk with your healthcare provider before using these medicines.) Follow-up care Follow up with your healthcare provider, or as advised. When to seek medical advice Call your healthcare provider right away if any of these occur: Increased eyelid swelling Increased eye pain Increased redness or drainage from the eye Increased blurry vision or increased sensitivity to light Failure of normal vision to return within 24 to 48 hours [phone] [employer]. [address] [place] [address]. All rights reserved. This information is not intended as a substitute for professional medical care. Always follow yourhealthcare professional's instructions. Follow Up Care 05/12/2021 20:30:44 With:MARY ELLEN GONSALSE DO Address: [phone] When:2-4 days [facility] 11-11-2021 Hospital Discharge instructions* Instructions* Vladimir Moran PA-C - 03/14/2021 Please keep the area clean and dry. Wash with soap and water daily. Do not use peroxide. Do not submerge the wound under water such as in lakes, iglesias, streams or pools. Do not take a bath. Showering is okay. Apply Vaseline/Neosporin ointment daily. Please take Tylenol or Motrin for pain control. Sutures should be removed by your specialist in 10-12 days Return to the emergency room immediately if you start experiencing fevers, body aches and chills, redness that spreads outwards from the wound, pus dripping from the wound, or worsening pain. * Attachments The following attachments cannot be sent through Care Everywhere. * Finger Fracture: Rehab Exercises (Mexican) * Finger Fracture (Mexican) [facility] Work Phone: Evaluation + Plan note No data available for this section [facility] Evaluation note* Diagnosis Open fracture of tuft of distal phalanx of finger- Primary Laceration of left index finger without foreign body without damage to nail, initial encounter documented in this encounter [facility] Work Phone: Hospital Discharge instructionsAmbulatory Orders* Gastroenterology Location: None Selected * Pain Management Location: None Selected [facility] Work Phone: Reason for referral (narrative)No reason for referral information availableWFort [facility] Work Phone: Summary Purpose Family History No Family History Records Found Relationship Condition Age at Onset Recorded Date/T brigida father Cerebrovascular accident (CVA) Unknown Malignant neoplasm Unknown Malignant neoplasm of colon 50 Diabetes mellitus Unknown grandfather Cardiac disease Unknown mother Diabetes mellitus Unknown grandmother Diabetes mellitus Unknown Advance Directives No Advanced Directives Records FoundNo Advanced Directives Records FoundNo Advanced Directives Records FoundNo Advanced Directives Records FoundNo Advanced Directives Records FoundNo Advanced Directives Records Found Chief Complaint and Reason for Visit Chief Complaint 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 [facility] Februar y 2024 3:30pm 3 WEEKS July 12, 2024 3:4 9pm 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 TURNED IN August 11 8:24am acute - hernia September 22, 2024 12:17 pm LEFT GROIN PAIN September 23, 2024 4:33p m Reason for Visit Admit Date Elevated blood-pressure read ing without diagnosis of hypertension June 22, 2024 3:30pm Focal infarction of brain June 22, 2024 3:30pm HARSHIL (generalized anxiety disorder) Febru deborah 2024 3:30pm Nicotine use June 22, 2024 3:30pm 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, 2024 3:30pm HARSHIL (generalized anxiety disorder) July 12, 2024 3:49pm Nicotine use July 12, 2024 3:4 9pm Caffeine abuse July 12, 2024 3:4 9pm Focal infarction of brain August 11 8:24am HARSHIL (generalized anxiety disorder) August 11, 2024 8:24am History of migraine headaches August 8:24am Family history of colon cancer August 8:24am Immunization due August 11, 2024 8:2 4am Smokes cigarettes August 11, 2024 8:2 4am Establishing care with new doctor, romario glez for August 11, 2024 8:24am Crohn's disease August 11, 2024 8:2 4am 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, 2024 8:2 4am Left groin pain September 22, 2024 12:17 pm Chief Complaint 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 [facility] ua2024 3:30pm 3 WEEKS July 12, 2024 3:4 9pm 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 TURNED IN August 11 8:24am acute - hernia September 22, 2024 12:17 pm LEFT GROIN PAIN September 23, 2024 4:33p m POSS EMBOLISM, PV thrombosis, ADD SPLEEN September 29, 2024 9:33am POSSIBLE INGUINAL HERNIA October 11, 2024 2:31pm Chief Complaint 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 [facility] uar y 2024 3:30pm 3 WEEKS July 12, 2024 3:4 9pm 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 TURNED IN August 11 8:24am acute - hernia September 22, 2024 12:17 pm LEFT GROIN PAIN September 23, 2024 4:33p m POSS EMBOLISM, PV thrombosis, ADD SPLEEN September 29, 2024 9:33am POSSIBLE INGUINAL HERNIA October 11, 2024 2:31pm CROHNS SPOT ON LIVER(CLOT) DIVERTICULITI S October 17, 2024 8:26am Reason for Visit Admit Date Elevated blood-pressure read ing without diagnosis of hypertension June 22, 2024 3:30pm Focal infarction of brain June 22, 2024 3:30pm HARSHIL (generalized anxiety disorder) Febru deborah 2024 3:30pm Nicotine use June 22, 2024 3:30pm 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, 2024 3:30pm HARSHIL (generalized anxiety disorder) July 12, 2024 3:49pm Nicotine use July 12, 2024 3:4 9pm Caffeine abuse July 12, 2024 3:4 9pm Focal infarction of brain August 11 8:24am HARSHIL (generalized anxiety disorder) August 11, 2024 8:24am History of migraine headaches August 8:24am Family history of colon cancer August 8:24am Immunization due August 11, 2024 8:2 4am Smokes cigarettes August 11, 2024 8:2 4am Establishing care with new doctor, romario glez for August 11, 2024 8:24am Crohn's disease August 11, 2024 8:2 4am 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, 2024 8:2 4am Left groin pain September 22, 2024 12:17 pm Crohn's disease October 11, 2024 2:31 pm Diverticulitis large intestine October 2:31pm History of left inguinal hernia repair J une 2024 2:31pm Left groin pain October 11, 2024 2:31 pm Left groin pain October 17, 2024 8:26 am Portal vein thrombosis October 17, 2024 8 :26am Chief Complaint 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 [facility] uar y 2024 3:30pm 3 WEEKS July 12, 2024 3:4 9pm 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 TURNED IN August 11 8:24am acute - hernia September 22, 2024 12:17 pm LEFT GROIN PAIN September 23, 2024 4:33p m POSS EMBOLISM, PV thrombosis, ADD SPLEEN September 29, 2024 9:33am Additional Source Comments (unrecognized sect ion and content) No Status Records FoundNo Status Records FoundNo Status Records FoundNo Status Records FoundNo Status Records FoundNo Status Records Found INFORMATION SOURCE (unrecogn ized section and content) DATE CREATED AUTHOR 10/27/2017 [facility] DATE CREATED AUTHOR AUTHOR'S ORGANIZ ATION 10/30/2017 [facility] DATE CREATED AUTHOR AUTHOR'S ORGANIZ ATION 03/19/2021 [facility] DATE CREATED AUTHOR AUTHOR'S ORGANIZ ATION 02/23/2023 [facility] ([place] DATE CREATED AUTHOR AUTHOR'S ORGANIZ ATION 02/24/2023 [facility] DATE CREATED AUTHOR AUTHOR'S ORGANIZ ATION 10/18/2024 [facility] Reason for Visit (unrecogniz ed section and content) Reason Comments Hand Injury left index finger wa s smashed. bleeding controlled. Ordered Prescriptions (unrec ognized section and content) Prescription Sig Dispensed Refills Start Date End Da te traMADol (ULTRAM) 50 MG tabletIndications:Open fracture of tuft of distal phalanx of finger,Laceration of left index finger without foreign body without damage to nail, initial encounter Take 1 tablet by mouth every 6 hours as needed for Pain for up to 3 days. Intended supply: 3 days. Take lowest dose possible to manage pain 12 tablet 0 03/14/2021 03/17/2021 cephALEXin (KEFLEX) 500 MG capsule Take 1 capsule by mouth 4 times daily for 7 days 28 capsule 0 03/14/2021 03/21/2021 Scheduled Active and Recently Administ ered Medications (unrecognized section and content) Medication Order 03/12/2021 03/13/2021 03/14/2021 bacitracin ointment (COMPLETED) Topical, ONCE, On [place] 03/14/21 at 1715, For 1 dose, Apply to wound. 171 (Given - Provid er: Abdirashid Pérez RN) cephALEXin (KEFLEX) capsule 500 mg (COMPLETED) 500 mg, Oral, ONCE, On [place] 03/14/21 at 1700, For 1 dose 1713 (Given - Provid er: Abdirashid Pérez RN) lidocaine PF 1 % injection 10 mL (COMPLETED) 10 mL, IntraDERmal, ONCE, On [place] 03/14/21 at 1630, For 1 dose 1706 (Given by Other - Provider: Abdirashid Pérez RN - Comment: given by ivy melanie.) sodium chloride flush 0.9 % injection 3 mL(Linked Group 1) 3 mL, IntraVENous, EVERY 8 HOURS, First dose on [place] 03/14/21 at 1630, Flush line with 3-5 mL 1630 (Due) Linked Groups Order Group 1: Saline lock IV Routine, CONTINUOUS, Starting on [place] 03/14/21 at 1630, Until Specified And sodium chloride flush 0.9 % injection 3 mLJump to med 3 mL, IntraVENous, EVERY 8 HOURS, First dose on Thu03/14/21 at 1630
Flush line with 3-5 mL
Patient Care team informatio n (unrecognized section and content) Team Status: Active Member Role Status Dates Dr. Courtney Cotter MD Primary Care Provider Active Team Status: Inactive Member Role Status Dates Dr. Mackenzie Colunga MD Primary Care Provider Active Start: June 22, 2024 End: June 22, 2024 Dr. Mackenzie Colunga MD Referring Provider Active Start: June 22, 2024 End: June 22, 2024 MICHELLE Stinson Attending Provider Active St art: June 22, 2024 End: June 22, 2024 Team Status: Inactive Member Role Status Dates Dr. Mackenzie Colunga MD Primary Care Provider Active Start: July 12, 2024 End: July 12, 2024 Dr. Mackenzie Colunga MD Referring Provider Active Start: July 12, 2024 End: July 12, 2024 MICHELLE Stinson Attending Provider Active St art: July 12, 2024 End: July 12, 2024 Team Status: Inactive Member Role Status Dates Dr. Mackenzie Colunga MD Referring Provider Active Start: August 11, 2024 End: August 11, 2024 Dr. Courtney Cotter MD Primary Care Provider Active Start: August 11, 2024 End: August 11, 2024 Dr. Courtney Cotter MD Attending Provider Active Start: August 11, 2024 End: August 11, 2024 Team Status: Inactive Member Role Status Dates Dr. Courtney Cotter MD Primary Care Provider Active Start: September 22, 2024 End: September 22, 2024 Dr. Courtney Cotter MD Referring Provider Active Start: September 22, 2024 End: September 22, 2024 MICHELLE Stinson Attending Provider Active St art: September 22, 2024 End: September 22, 2024 Team Status: Inactive Member Role Status Dates Dr. Courtney Cotter MD Primary Care Provider Active Start: September 23, 2024 End: September 23, 2024 MICHELLE Stinson Attending Provider Active St art: September 23, 2024 End: September 23, 2024 MICHELLE Stinson Referring Provider Active St art: September 23, 2024 End: September 23, 2024 Team Status: Inactive Member Role Status Dates Dr. Courtney Cotter MD Primary Care Provider Active Start: September 29, 2024 End: September 29, 2024 MICHELLE Stinson Attending Provider Active St art: September 29, 2024 End: September 29, 2024 MICHELLE Stinson Referring Provider Active St art: September 29, 2024 End: September 29, 2024 Team Status: Inactive Member Role Status Dates Dr. Courtney Cotter MD Primary Care Provider Active Start: October 11, 2024 End: October 11, 2024 Dr. Courtney Cotter MD Referring Provider Active Start: October 11, 2024 End: October 11, 2024 Dr. Dereje Adams MD Attending Provider Active Start: October 11, 2024 End: October 11, 2024 Team Status: Inactive Member Role Status Dates Dr. Courtney Cotter MD Primary Care Provider Active Start: October 17, 2024 End: October 17, 2024 Dr. Courtney Cotter MD Referring Provider Active Start: October 17, 2024 End: October 17, 2024 EDMUND Vera Attending Provider Active Start: October 17, 2024 End: October 17, 2024 Goals (unrecognized section and content) Goals may be documented in a n alternate section FOR RECORDS PERTAINING TO PATIENTS WHO ARE OR HAVE BEEN ENROLLED IN A CHEMICAL DEPENDENCY/SUBSTANCEABUSE PROGRAM, SOME INFORMATION MAY BE OMITTED. This clinical summary was aggregated from multiple sources. Caution should be exercised in using it in the provision of clinical care. This summary normalizes information from multiple sources, and as a consequence, information in this document may materially change the coding, format and clinical context of patient data. In addition, data may be omitted in some cases. CLINICAL DECISIONS SHOULD BE BASED ON THE PRIMARY CLINICAL RECORDS. [facility] [employer] [facility]. provides no warranty or guarantee of the accuracy or completeness of information in this document.
== END | disposition home or self-care (01) ==
LOC: CVS 09:54
PROVIDERS: PCP Internal Medicine; Referring Provider Nurse Practitioner Acute Care; Visit Provider Nurse Practitioner Acute Care
DX: R10.32 Left lower quadrant pain (principal); I70.92 Chronic total occlusion of artery of the extremities; M79.605 Pain in left leg
CPT/HCPCS: 93971

== ENCOUNTER → 2024-11-23 | Outpatient (CLI) | payer OTHER, SELFPAY ==
--- NOTE | 2024-11-23 12:25 | RAD_ITS ---
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 Relative disc space preservation. Small anterior osteophytes. No acute bone or soft tissue pathology. RAD/Lumbar Spine 2 or 3 Views IMPRESSION: Lumbar spine degeneration. [facility]
== END | disposition home or self-care (01) ==
LOC: RAD 12:21
PROVIDERS: PCP Internal Medicine; Referring Provider Anesthesiology Pain Medicine; Visit Provider Anesthesiology Pain Medicine
DX: M54.12 Radiculopathy, cervical region (principal)
CPT/HCPCS: 72100